=== PATIENT | female | born 1990 | race Caucasian/White ===

== ENCOUNTER 2022-11-06 03:35 | Emergency (ER) | payer OTHER, SELFPAY ==
[2022-11-06 03:59] VITALS: BP 151/86; PULSE 68; RESP 18; TEMP 36.6; O2SAT 100; BMI 26.6
--- NOTE | 2022-11-06 04:03 | ED.GENADULT ---
HPI - General Adult General Chief complaint: Urogenital-Female Stated complaint: Oral thrush Time Seen by Provider: 11/06/22 03:54 Source: patient Mode of arrival: ambulatory Limitations: no limitations History of Present Illness HPI narrative: Patient comes to the emergency room complaining of thrush in her mouth. Patient states that approximately 2 months ago, she had a vaginal infection, she was treated with antibiotics and since then she has been having multiple episodes of thrush in the mouth. Patient states that she recently finished treatment with nystatin swish and swallow, it helped but now it is restarting ends in the tip of the tongue. Related Data Previous Rx's Medication Instructions Recorded fluconazole 100 mg tablet 100 mg PO DAILY #5 tabs 11/06/22 (Diflucan) Allergies Allergy/AdvReac Type Severity Reaction Status Date / Time No Known Allergies Allergy Unverified 02/29/20 16:02 [No Known Allergies*] Review of Systems Review of Systems: Constitutional : No Weight loss, No Fever, No Chills, No Night Sweats, No Fatigue, No Malaise ENT/Mouth : Complaining of torsion the tongue, No Hearing loss, No Ear Pain, No Nasal Congestion, No Sinus Pain, No Hoarseness, No sore throat, No Rhinorrhea, No Swallowing Difficulty Eyes: No Eye Pain, No Swelling, No Redness, No Foreign Body, No Discharge, No Vision Changes Cardiovascular : No Chest Pain, No SOB, No Dyspnea on Exertion, No Orthopnea, No Edema, No Palpitations Respiratory : No Cough, No Sputum, No Wheezing, No Smoke Exposure, No Dyspnea Gastrointestinal : No Nausea, No Vomiting, No Diarrhea, No Constipation, No abdominal Pain, No Hematochezia, No Melena Genitourinary : no irregular bleeding, No Dysuria, No Urinary Frequency, No Hematuria, No Urinary Incontinence, No Urgency, No Flank Pain, No Urinary Flow Changes, No Hesitancy Musculoskeletal : No joint pain, No Myalgias, No Joint Swelling Skin : No Skin Lesions, No rash Neuro : No Weakness, No Numbness, No Paresthesias, No Loss of Consciousness, No Dizziness, No Headache Psych : No Anxiety/Panic, No Depression, No SI/HI/AH/VH, No Social Issues, Heme/Lymph: No Bruising, No Bleeding,No Lymphadenopathy Endocrine : No Polyuria, No Polydipsia, No Temperature Intolerance PMFSH Social History Social History Alcohol intake: never Physical Exam ED Vital Signs: Vital Signs - 24 hr 11/06/22 03:59 Temperature 97.8 F Pulse Rate 68 Respiratory Rate 18 Blood Pressure 151/86 H Pulse Oximetry 100 Oxygen Delivery Method Room Air BMI result Body Mass Index 26.6 Const Other: Appearance: Alert. Oriented X3. No acute distress. Eyes: Pupils equal, round and reactive to light. ENT: Pharynx normal. At the tip of the tongue there is a 3 mm x 3 mm plaque thrush, the rest of the oral mucosa within normal limits Neck: Normal inspection. Neck supple. No lymph nodes noted. No crepitus CVS: Normal heart rate and rhythm. Pulses normal. Normal S1 and S2 Respiratory: No respiratory distress. Breath sounds normal. No Wheezing. No rales Abdomen: Soft and nontender. No rigidity. No distention. Skin: Skin warm and dry. Normal skin color. Normal skin turgor. Extremities: No lower extremity edema. No Lacerations. No Rash Neuro: Oriented X 3. No motor deficit. No sensory deficit. Moving all extremities. No slurred speech. CN 2 through 12 grossly intact Psych: calm, cooperative, normal affect Medical Decision Making Medical Decision Making MDM Narrative: -patient is using surgeon's well at the moment. Patient was given 1 dose of Diflucan in the emergency room Discharge Plan Discharge Clinical Impression: Candidiasis of mouth Patient Disposition: Home, Self-Care Instructions: Oral Candidiasis (ED) Additional Instructions: Please follow-up with your primary care physician tomorrow. If you have any worsening or new symptoms, please return to the emergency room or call 911 Prescriptions: New fluconazole [Diflucan] 100 mg tablet 100 mg PO DAILY Qty: 5 0RF
[2022-11-06] MEDS: Fluconazole 150 MG TABLET PO (04:15)
== END 2022-11-06 04:15 | disposition home or self-care (01) ==
LOC: HO.ED 04:10
PROVIDERS: Emergency Provider Emergency Medicine
DX: B37.0 Candidal stomatitis (principal)
CPT/HCPCS: 99283; 99284

== ENCOUNTER 2022-12-20 07:57 | Observation (INO) | payer OTHER, SELFPAY ==
[2022-12-20] VITALS (7 sets, daily range): BP systolic 127–186; BP diastolic 58–91; PULSE 89–113; RESP 14–21; TEMP 36.3–36.8; O2SAT 97–99; BMI 33.4
--- NOTE | 2022-12-20 09:27 | ED_ITS ---
HPI - General Adult General Chief complaint: General Medical Stated complaint: legs swollen Time Seen by Provider: 12/20/22 08:54 Source: patient and RN notes reviewed Mode of arrival: ambulatory Limitations: no limitations History of Present Illness HPI narrative: This is a [id number]-female, with a history of nephroliathiasis, presenting to the emergency department with complaints of lower leg swelling and 20lb weight gain in the last 3-4 days. Patient states that over the last month, she has had multiple ailments. Patient reports that 1 month ago she was treated for bacterial vaginosis. Patient reports that since then she has had multiple ailments including many oral ulcers. She states that she has had profound acid in mouth and every time she eats something now she all she tastes is metallic and a burning/bubbling sensation throughout the whole mouth. She states that she has to get 3 root canals as her teeth are decaying because of the amount of acid. Patient states that over the last 3-4 days she has had peripheral edema. She also notes that she has had a rash appearing diffusely throughout her body. They are not itchy or tender. Denies history of IV drug abuse, alcohol use. No history similar symptoms in the past. No other complaints or concerns at this time. MD complaint: LE edema Onset (ago): day(s) Location: lower extremity Radiation: non-radiation Pain Consistency: constant Relieving factors: none Exacerbating factors: none Associated symptoms: denies other symptoms Treatments prior to arrival: none Related Data Home Medications Medication Instructions Recorded Confirmed ferrous sulfate 325 mg (65 mg 325 mg PO DAILY 12/20/22 12/20/22 iron) tablet (iron) valacyclovir 1 gram tablet 1,000 mg PO DAILY 12/20/22 12/20/22 vitamin B complex 1 tab PO DAILY 12/20/22 12/20/22 Previous Rx's Medication Instructions Recorded furosemide 20 mg tablet (Lasix) 20 mg PO QAM #7 tabs 12/21/22 Allergies Allergy/AdvReac Type Severity Reaction Status Date / Time No Known Allergies Allergy Unverified 02/29/20 16:02 [No Known Allergies*] Review of Systems Review of Systems: Constitutional: No Weight loss, No Fever, No Chills, No Night Sweats, No Fatigue, No Malaise ENT/Mouth: No Hearing loss, No Ear Pain, No Nasal Congestion, No Sinus Pain, No Hoarseness, No sore throat, No Rhinorrhea, No Swallowing Difficulty Eyes: No Eye Pain, No Swelling, No Redness, No Foreign Body, No Discharge, No Vision Changes Cardiovascular: No Chest Pain, No SOB, No Dyspnea on Exertion, No Orthopnea, No Edema, No Palpitations Respiratory: No Cough, No Sputum, No Wheezing, No Smoke Exposure, No Dyspnea Gastrointestinal: No Nausea, No Vomiting, No Diarrhea, No Constipation, No Abdominal pain, No Hematochezia, No Melena Genitourinary: No irregular bleeding, No Dysuria, No Urinary Frequency, No Hematuria, No Urinary Incontinence/retention, No Urgency, No Flank Pain, No Urinary Flow Changes, No Hesitancy Musculoskeletal: No joint pain, No Myalgias, No Joint Swelling Skin: No Skin Lesions, No rash Neuro: No Weakness, No Numbness, No Paresthesias, No Loss of Consciousness, No Dizziness, No Headache Psych: No Anxiety/Panic, No Depression, No SI/HI/AH/VH, No Social Issues, Heme/Lymph: No Bruising, No Bleeding,No Lymphadenopathy Endocrine: No Polyuria, No Polydipsia, No Temperature Intolerance Yes all other systems are reviewed and are negative Constitutional: Constitutional: Reports as per [facility] Social History Social History Alcohol intake: never Patient Tobacco Use Status: Never used Tobacco service: No Physical Exam ED Vital Signs: Vital Signs - 24 hr 12/20/22 08:08 12/20/22 10:55 12/20/22 12:52 Temperature 97.6 F Pulse Rate 89 94 105 H Respiratory Rate 18 19 21 H Blood Pressure 186/87 H 128/68 127/76 Pulse Oximetry 98 99 99 Oxygen Delivery Method Room Air Room Air Room Air 12/20/22 16:30 Temperature Pulse Rate 98 Respiratory Rate 17 Blood Pressure 134/88 Pulse Oximetry 99 Oxygen Delivery Method Room Air BMI result Body Mass Index 33.4 Const General: cooperative, comfortable and no acute distress Orientation/consciousness: patient oriented x3 Limitations: no limitations HENMT Head: Yes normal to inspection, Yes normocephalic and Yes atraumatic Ears: hearing grossly normal bilaterally General nose exam: Normal external nose present Face and sinus: Yes normal facial exam Mouth: Normal oral and palatal mucosa present, oropharynx normal and moist mucous membranes Throat: Yes posterior oropharynx normal Eyes General: appearance normal, both eyes and all related structures Eyelids: Yes eyelids normal Conjunctivae: conjunctivae normal Sclerae: sclerae normal Pupils: Equal, round and reactive pupils present EOM: EOMs intact bilaterally Neck Neck: Yes normal visual inspection, Yes full ROM and Yes no lymphadenopathy Lymphatic: no lymphadenopathy noted Chest Chest palpation & inspection: normal inspection of the chest Resp Effort & Inspection: normal respiratory effort and able to speak in complete sentences Auscultation: clear to auscultation bilaterally, no crackles, no rales, no rhonchi and no wheezes Cardio Rate: regular rate Rhythm: regular rhythm Heart sounds: S1 normal heart sound present and S2 normal heart sound present GI Other: Good rectal tone, dark stool noted from rectum, stool occult positive Inspection: Yes normal to inspection Palpation (GI): Soft to palpation, nontender and no guarding Percussion: Yes normal to percussion Auscultation: normal bowel sounds Rectal Exam - Female: visual inspection normal and normal sphincter tone Skin Other: Scattered, black punctate, raised lesions noted diffusely throughout chest and legs. Nontender. General skin exam: no rashes or lesions noted Trauma: no lacerations or abrasions Wounds: no wounds Neuro General: patient oriented x3 and moves all extremities Cranial nerves: Yes Equal, round and reactive pupils present Extrem Other: 3+ pitting edema noted bilaterally. General: Yes normal to inspection Right upper extremity: normal to inspection Left upper extremity: normal to inspection Right lower extremity: normal to inspection Left lower extremity: normal to inspection Course Reevaluation(s) Reevaluation #1: Patient had bowel movement that was very dark in color, almost black, rectal exam was performed, patient has good rectal tone, black stool noted on finger. Stool occult is positive. Given workup as well as microcytic anemia seen, p atient is case discussed with hospitalist who accepts transfer of care. Medications Administered Discontinued Medications Generic Name Dose Route Start Last Admin Trade Name Freq PRN Reason Stop Dose Admin Lorazepam 1 mg 12/20/22 11:08 12/20/22 11:15 Lorazepam 1 Mg Tablet PO 12/20/22 11:09 1 mg ONCE ONE Administration Sodium Chloride 3 ml 12/21/22 00:00 12/21/22 16:01 0.9 % Sodium Chloride Flush 3 Ml Syringe IVFLUSH 3 ml [facility] Administration Medical Decision Making Medical Decision Making [facility] Narrative: This is a 32-year-old previously healthy female presenting to the emergency department for evaluation of lower extremity swelling and 20 lb weight gain in the last 3-4 days. Patient reports that over the course of this past month, patient has had multiple ailments and she is unsure if they are connected. She initially had a bacterial vaginosis infection which was treated, then she had an infection in her mouth, reporting that there is approximately 20 ulcers along her tongue, very painful and was told that it was thrush. She was seen by infectious disease, reported that this was not thrush and was tested for HIV which was negative. Patient was then seen by ENT and was told that this was not thrush but her symptoms resolved on its own. Patient reports that she also has had a metallic taste in her mouth and at times food and beverages is all in her mouth. She reports increased acid in her mouth and reports dental decay, is needing multiple canal is which is very atypical for her. This case is very complex and it is unclear whether not these are all the intermingled. Vital signs revealing hypertension at 186/87 upon arrival, improved to 134/88. Patient has 3+ pitting edema, BNP was within limits, patient with microcytic anemia with an H&H of 8/30. Given dark stool and he positive stool and anemia, patient warrants hospital admission for further workup of bilateral lower extremity edema, anemia, and GI bleed. Patient has not had any chest pain, shortness of breath, or palpitations. Vital signs are stable on examination. Case was discussed with my attending physician, Dr. Deras and Dr. Ramirez. Differential Diagnosis Differential Diagnoses: The differential diagnosis associated with the presentation includes CHF, nephrotic syndrome, GI bleed, DVT, dependent edema, tick-borne illness, hyperthyroidism, anemia, iron deficiency anemia Admission/Observation Consideration of admission/observation: Escalation of care including admission/observation considered Patient would have been admitted to the hospital had her work up had any findings where hospital admission was appropriate and her clinical presentation warranted hospital admission. Consult Healthcare Provider Management of the patient was discussed with: Hospitalist Lab Data [facility] Lab Attestation statement: I reviewed the patient's lab results. Patient with microcytic anemia with a hemoglobin of 8.9, hematocrit at 30.5. Creatinine within normal limits, BUN normal, no leukocytosis, urine with large blood, trace leuk esterases. Stool occult blood is positive. 12/20/22 11:24 12/20/22 11:23 Labs: Lab Results 12/20/22 12/20/22 12/20/22 Range/Units 08:47 08:48 11:23 WBC (4.8-10.8) X10*3/uL RBC (4.20-5.50) X10*6/uL Hgb (12.0-16.0) g/dl Hct (37.0-47.0) % MCV (80.0-98.0) fL MCH (27.0-33.0) pg MCHC (31.0-35.0) g/dl RDW (11.0-16.0) % Plt Count (160-400) X10*3/uL MPV (9.4-12.3) fL Immature Gran % (Auto) (0.0-0.4) % Neut % (Auto) (45-73) % Lymph % (Auto) (20-40) % Mcduffie % (Auto) (2-11) % Eos % (Auto) (0-4) % Baso % (Auto) (0-2) % Lymph # (Auto) (1.2-4.9) X10*3/uL [place]duffie # (Auto) (0.1-1.2) X10*3/uL Eos # (Auto) (0.0-0.4) X10*3/uL Baso # (Auto) (0.0-0.2) X10*3/uL Abs Immat Gran (auto) (0.00-0.03) X10*3/uL Absolute Neuts (auto) (2.0-8.3) x10*3/uL Absolute Nucleated RBC (0.0-0.012) X10*3/uL Nucleated RBC % (auto) (0.0-0.2) /100WBC ESR (0-20) MM/HR Sodium 138 (135-145) mmol/L Potassium 4.0 (3.3-5.1) mmol/L Chloride 102 (96-108) mmol/L Carbon Dioxide 26 (22-29) mmol/L Anion Gap 14 (12-20) BUN 10 (9-16) mg/dL Creatinine 0.69 (0.5-1.4) mg/dL Estim Creat Clear Calc 135.2 Estimated GFR > 60 Random Glucose 93 (60-115) mg/dL Calcium 9.7 (8.4-10.2) mg/dL Magnesium (1.6-2.6) mg/dL Iron (30-160) mcg/dL TIBC (228-428) mcg/dL % Saturation (15-50) % Unsat Iron Binding ug/dL Ferritin (10-122) ng/mL Total Bilirubin (0.0-1.0) mg/dL Direct Bilirubin (0.0-0.5) mg/dL AST (5-31) U/L ALT (0-31) U/L Alkaline Phosphatase (39-117) U/L Troponin I High Sens (<3.5-17.0) ng/L C-Reactive Protein (< or = 0.50) mg/dL B-Natriuretic Peptide (<100) pg/mL Total Protein (6.5-8.0) g/dL Albumin (3.5-5.0) g/dL Lipase (8-78) U/L Vitamin B12 (200-900) pg/mL Folate (> or = 4.0) ng/mL TSH (0.32-4.0) uIU/mL Urine Color Dark Yellow Urine Appearance Cloudy Urine pH 5.5 (5.0-9.0) Ur Specific Jackson 1.025 (1.005-1.025) Urine Protein Trace (Neg-Trace) mg/dL Urine Glucose (UA) Negative (Negative) mg/dL Urine Ketones Trace (Negative) mg/dL Urine Blood Large (3+) H (Negative) Urine Nitrite Negative (Negative) Ur Leukocyte Esterase Trace H (Negative) Urine RBC >20 H (0-2) /HPF Urine WBC 0-5 (0-5) /HPF Ur Squamous Epith Cells 6-10 (0-2) /HPF Calcium Oxalate Crystal Present Urine Bacteria None Seen (None Seen) Hyaline Casts 0-2 (0-2) /LPF Urine Test NEGATIVE (NEGATIVE) Stool Occult Blood (NEGATIVE) Ethyl Alcohol mg/dL Lyme Screen IgG & IgM index Lyme Progressive Test COVID-19 (MAX) (Negative) COVID-19 Clin Com Hepatitis A IgM Ab (Nonreactive) Hep Bs Antigen (Negative) Hep Bs Antibody (Nonreactive) Hep B Core Total Ab (Nonreactive) Hepatitis C Ab (EIA) (Nonreactive) Anti-Streptolysin Scrn (<200) IU/mL 12/20/22 12/20/22 12/20/22 Range/Units 11:23 11:23 11:23 WBC (4.8-10.8) X10*3/uL RBC (4.20-5.50) X10*6/uL Hgb (12.0-16.0) g/dl Hct (37.0-47.0) % MCV (80.0-98.0) fL MCH (27.0-33.0) pg MCHC (31.0-35.0) g/dl RDW (11.0-16.0) % Plt Count (160-400) X10*3/uL MPV (9.4-12.3) fL Immature Gran % (Auto) (0.0-0.4) % Neut % (Auto) (45-73) % Lymph % (Auto) (20-40) % [place]duffie % (Auto) (2-11) % Eos % (Auto) (0-4) % Baso % (Auto) (0-2) % Lymph # (Auto) (1.2-4.9) X10*3/uL [place]duffie # (Auto) (0.1-1.2) X10*3/uL Eos # (Auto) (0.0-0.4) X10*3/uL Baso # (Auto) (0.0-0.2) X10*3/uL Abs Immat Gran (auto) (0.00-0.03) X10*3/uL Absolute Neuts (auto) (2.0-8.3) x10*3/uL Absolute Nucleated RBC (0.0-0.012) X10*3/uL Nucleated RBC % (auto) (0.0-0.2) /100WBC ESR (0-20) MM/HR Sodium (135-145) mmol/L Potassium (3.3-5.1) mmol/L Chloride (96-108) mmol/L Carbon Dioxide (22-29) mmol/L Anion Gap (12-20) BUN (9-16) mg/dL Creatinine (0.5-1.4) mg/dL Estim Creat Clear Calc Estimated GFR Random Glucose (60-115) mg/dL Calcium (8.4-10.2) mg/dL Magnesium 2.1 (1.6-2.6) mg/dL Iron 16 L (30-160) mcg/dL TIBC 358 (228-428) mcg/dL % Saturation 4 L (15-50) % Unsat Iron Binding 342 ug/dL Ferritin 13 (10-122) ng/mL Total Bilirubin 0.3 (0.0-1.0) mg/dL Direct Bilirubin 0.1 (0.0-0.5) mg/dL AST 21 (5-31) U/L ALT 12 (0-31) U/L Alkaline Phosphatase 70 (39-117) U/L Troponin I High Sens < 2.7 (<3.5-17.0) ng/L C-Reactive Protein (< or = 0.50) mg/dL B-Natriuretic Peptide (<100) pg/mL Total Protein 7.6 (6.5-8.0) g/dL Albumin 4.0 (3.5-5.0) g/dL Lipase 13 (8-78) U/L Vitamin B12 (200-900) pg/mL Folate (> or = 4.0) ng/mL TSH (0.32-4.0) uIU/mL Urine Color Urine Appearance Urine pH (5.0-9.0) Ur Specific Jackson (1.005-1.025) Urine Protein (Neg-Trace) mg/dL Urine Glucose (UA) (Negative) mg/dL Urine Ketones (Negative) mg/dL Urine Blood (Negative) Urine Nitrite (Negative) Ur Leukocyte Esterase (Negative) Urine RBC (0-2) /HPF Urine WBC (0-5) /HPF Ur Squamous Epith Cells (0-2) /HPF Calcium Oxalate Crystal Urine Bacteria (None Seen) Hyaline Casts (0-2) /LPF Urine Test (NEGATIVE) Stool Occult Blood (NEGATIVE) Ethyl Alcohol mg/dL Lyme Screen IgG & IgM index Lyme Progressive Test COVID-19 (MAX) (Negative) COVID-19 Clin Com Hepatitis A IgM Ab (Nonreactive) Hep Bs Antigen (Negative) Hep Bs Antibody (Nonreactive) Hep B Core Total Ab (Nonreactive) Hepatitis C Ab (EIA) (Nonreactive) Anti-Streptolysin Scrn 227 H (<200) IU/mL 12/20/22 12/20/22 12/20/22 Range/Units 11:23 11:23 11:23 WBC (4.8-10.8) X10*3/uL RBC (4.20-5.50) X10*6/uL Hgb (12.0-16.0) g/dl Hct (37.0-47.0) % MCV (80.0-98.0) fL MCH (27.0-33.0) pg MCHC (31.0-35.0) g/dl RDW (11.0-16.0) % Plt Count (160-400) X10*3/uL MPV (9.4-12.3) fL Immature Gran % (Auto) (0.0-0.4) % Neut % (Auto) (45-73) % Lymph % (Auto) (20-40) % [place]duffie % (Auto) (2-11) % Eos % (Auto) (0-4) % Baso % (Auto) (0-2) % Lymph # (Auto) (1.2-4.9) X10*3/uL [place]ff[place] # (Auto) (0.1-1.2) X10*3/uL Eos # (Auto) (0.0-0.4) X10*3/uL Baso # (Auto) (0.0-0.2) X10*3/uL Abs Immat Gran (auto) (0.00-0.03) X10*3/uL Absolute Neuts (auto) (2.0-8.3) x10*3/uL Absolute Nucleated RBC (0.0-0.012) X10*3/uL Nucleated RBC % (auto) (0.0-0.2) /100WBC ESR (0-20) MM/HR Sodium (135-145) mmol/L Potassium (3.3-5.1) mmol/L Chloride (96-108) mmol/L Carbon Dioxide (22-29) mmol/L Anion Gap (12-20) BUN (9-16) mg/dL Creatinine (0.5-1.4) mg/dL Estim Creat Clear Calc Estimated GFR Random Glucose (60-115) mg/dL Calcium (8.4-10.2) mg/dL Magnesium (1.6-2.6) mg/dL Iron (30-160) mcg/dL TIBC (228-428) mcg/dL % Saturation (15-50) % Unsat Iron Binding ug/dL Ferritin (10-122) ng/mL Total Bilirubin (0.0-1.0) mg/dL Direct Bilirubin (0.0-0.5) mg/dL AST (5-31) U/L ALT (0-31) U/L Alkaline Phosphatase (39-117) U/L Troponin I High Sens (<3.5-17.0) ng/L C-Reactive Protein 0.91 H (< or = 0.50) mg/dL B-Natriuretic Peptide 33 (<100) pg/mL Total Protein (6.5-8.0) g/dL Albumin (3.5-5.0) g/dL Lipase (8-78) U/L Vitamin B12 (200-900) pg/mL Folate (> or = 4.0) ng/mL TSH (0.32-4.0) uIU/mL Urine Color Urine Appearance Urine pH (5.0-9.0) Ur Specific Jackson (1.005-1.025) Urine Protein (Neg-Trace) mg/dL Urine Glucose (UA) (Negative) mg/dL Urine Ketones (Negative) mg/dL Urine Blood (Negative) Urine Nitrite (Negative) Ur Leukocyte Esterase (Negative) Urine RBC (0-2) /HPF Urine WBC (0-5) /HPF Ur Squamous Epith Cells (0-2) /HPF Calcium Oxalate Crystal Urine Bacteria (None Seen) Hyaline Casts (0-2) /LPF Urine Test (NEGATIVE) Stool Occult Blood (NEGATIVE) Ethyl Alcohol < 10 mg/dL Lyme Screen IgG & IgM <0.90 index Lyme Progressive Test TNP COVID-19 (MAX) (Negative) COVID-19 Clin Com Hepatitis A IgM Ab (Nonreactive) Hep Bs Antigen (Negative) Hep Bs Antibody (Nonreactive) Hep B Core Total Ab (Nonreactive) Hepatitis C Ab (EIA) (Nonreactive) Anti-Streptolysin Scrn (<200) IU/mL 12/20/22 12/20/22 12/20/22 Range/Units 11:23 11:24 11:24 WBC 10.2 (4.8-10.8) X10*3/uL RBC 4.28 (4.20-5.50) X10*6/uL Hgb 8.9 L (12.0-16.0) g/dl Hct 30.5 L (37.0-47.0) % MCV 71.3 L (80.0-98.0) fL MCH 20.8 L (27.0-33.0) pg MCHC 29.2 L (31.0-35.0) g/dl RDW 19.8 H (11.0-16.0) % Plt Count 418 H (160-400) X10*3/uL MPV 9.2 L (9.4-12.3) fL Immature Gran % (Auto) 0.3 (0.0-0.4) % Neut % (Auto) 77.0 H (45-73) % Lymph % (Auto) 15.5 L (20-40) % [place]duffie % (Auto) 4.9 (2-11) % Eos % (Auto) 2.0 (0-4) % Baso % (Auto) 0.3 (0-2) % Lymph # (Auto) 1.6 (1.2-4.9) X10*3/uL [place]duffie # (Auto) 0.5 (0.1-1.2) X10*3/uL Eos # (Auto) 0.2 (0.0-0.4) X10*3/uL Baso # (Auto) 0.0 (0.0-0.2) X10*3/uL Abs Immat Gran (auto) 0.03 (0.00-0.03) X10*3/uL Absolute Neuts (auto) 7.9 (2.0-8.3) x10*3/uL Absolute Nucleated RBC 0.000 (0.0-0.012) X10*3/uL Nucleated RBC % (auto) 0.0 (0.0-0.2) /100WBC ESR (0-20) MM/HR Sodium (135-145) mmol/L Potassium (3.3-5.1) mmol/L Chloride (96-108) mmol/L Carbon Dioxide (22-29) mmol/L Anion Gap (12-20) BUN (9-16) mg/dL Creatinine (0.5-1.4) mg/dL Estim Creat Clear Calc Estimated GFR Random Glucose (60-115) mg/dL Calcium (8.4-10.2) mg/dL Magnesium (1.6-2.6) mg/dL Iron (30-160) mcg/dL TIBC (228-428) mcg/dL % Saturation (15-50) % Unsat Iron Binding ug/dL Ferritin (10-122) ng/mL Total Bilirubin (0.0-1.0) mg/dL Direct Bilirubin (0.0-0.5) mg/dL AST (5-31) U/L ALT (0-31) U/L Alkaline Phosphatase (39-117) U/L Troponin I High Sens (<3.5-17.0) ng/L C-Reactive Protein (< or = 0.50) mg/dL B-Natriuretic Peptide (<100) pg/mL Total Protein (6.5-8.0) g/dL Albumin (3.5-5.0) g/dL Lipase (8-78) U/L Vitamin B12 (200-900) pg/mL Folate (> or = 4.0) ng/mL TSH (0.32-4.0) uIU/mL Urine Color Urine Appearance Urine pH (5.0-9.0) Ur Specific Jackson (1.005-1.025) Urine Protein (Neg-Trace) mg/dL Urine Glucose (UA) (Negative) mg/dL Urine Ketones (Negative) mg/dL Urine Blood (Negative) Urine Nitrite (Negative) Ur Leukocyte Esterase (Negative) Urine RBC (0-2) /HPF Urine WBC (0-5) /HPF Ur Squamous Epith Cells (0-2) /HPF Calcium Oxalate Crystal Urine Bacteria (None Seen) Hyaline Casts (0-2) /LPF Urine Test (NEGATIVE) Stool Occult Blood (NEGATIVE) Ethyl Alcohol mg/dL Lyme Screen IgG & IgM index Lyme Progressive Test COVID-19 (MAX) Negative (Negative) COVID-19 Clin Com See Note Hepatitis A IgM Ab Nonreactive (Nonreactive) Hep Bs Antigen Negative (Negative) Hep Bs Antibody REACTIVE (Nonreactive) Hep B Core Total Ab Nonreactive (Nonreactive) Hepatitis C Ab (EIA) Nonreactive (Nonreactive) Anti-Streptolysin Scrn (<200) IU/mL 12/20/22 12/20/2212/20/23 Range/Units 11:24 11:25 14:43 WBC (4.8-10.8) X10*3/uL RBC (4.20-5.50) X10*6/uL Hgb (12.0-16.0) g/dl Hct (37.0-47.0) % MCV (80.0-98.0) fL MCH (27.0-33.0) pg MCHC (31.0-35.0) g/dl RDW (11.0-16.0) % Plt Count (160-400) X10*3/uL MPV (9.4-12.3) fL Immature Gran % (Auto) (0.0-0.4) % Neut % (Auto) (45-73) % Lymph % (Auto) (20-40) % [place]duffie % (Auto) (2-11) % Eos % (Auto) (0-4) % Baso % (Auto) (0-2) % Lymph # (Auto) (1.2-4.9) X10*3/uL [place]ff[place] # (Auto) (0.1-1.2) X10*3/uL Eos # (Auto) (0.0-0.4) X10*3/uL Baso # (Auto) (0.0-0.2) X10*3/uL Abs Immat Gran (auto) (0.00-0.03) X10*3/uL Absolute Neuts (auto) (2.0-8.3) x10*3/uL Absolute Nucleated RBC (0.0-0.012) X10*3/uL Nucleated RBC % (auto) (0.0-0.2) /100WBC ESR 37 H (0-20) MM/HR Sodium (135-145) mmol/L Potassium (3.3-5.1) mmol/L Chloride (96-108) mmol/L Carbon Dioxide (22-29) mmol/L Anion Gap (12-20) BUN (9-16) mg/dL Creatinine (0.5-1.4) mg/dL Estim Creat Clear Calc Estimated GFR Random Glucose (60-115) mg/dL Calcium (8.4-10.2) mg/dL Magnesium (1.6-2.6) mg/dL Iron (30-160) mcg/dL TIBC (228-428) mcg/dL % Saturation (15-50) % Unsat Iron Binding ug/dL Ferritin (10-122) ng/mL Total Bilirubin (0.0-1.0) mg/dL Direct Bilirubin (0.0-0.5) mg/dL AST (5-31) U/L ALT (0-31) U/L Alkaline Phosphatase (39-117) U/L Troponin I High Sens (<3.5-17.0) ng/L C-Reactive Protein (< or = 0.50) mg/dL B-Natriuretic Peptide (<100) pg/mL Total Protein (6.5-8.0) g/dL Albumin (3.5-5.0) g/dL Lipase (8-78) U/L Vitamin B12 (200-900) pg/mL Folate (> or = 4.0) ng/mL TSH 0.86 (0.32-4.0) uIU/mL Urine Color Urine Appearance Urine pH (5.0-9.0) Ur Specific Jackson (1.005-1.025) Urine Protein (Neg-Trace) mg/dL Urine Glucose (UA) (Negative) mg/dL Urine Ketones (Negative) mg/dL Urine Blood (Negative) Urine Nitrite (Negative) Ur Leukocyte Esterase (Negative) Urine RBC (0-2) /HPF Urine WBC (0-5) /HPF Ur Squamous Epith Cells (0-2) /HPF Calcium Oxalate Crystal Urine Bacteria (None Seen) Hyaline Casts (0-2) /LPF Urine Test (NEGATIVE) Stool Occult Blood POSITIVE (NEGATIVE) Ethyl Alcohol mg/dL Lyme Screen IgG & IgM index Lyme Progressive Test COVID-19 (MAX) (Negative) COVID-19 Clin Com Hepatitis A IgM Ab (Nonreactive) Hep Bs Antigen (Negative) Hep Bs Antibody (Nonreactive) Hep B Core Total Ab (Nonreactive) Hepatitis C Ab (EIA) (Nonreactive) Anti-Streptolysin Scrn (<200) IU/mL 12/20/22 Range/Units 16:48 WBC (4.8-10.8) X10*3/uL RBC (4.20-5.50) X10*6/uL Hgb (12.0-16.0) g/dl Hct (37.0-47.0) % MCV (80.0-98.0) fL MCH (27.0-33.0) pg MCHC (31.0-35.0) g/dl RDW (11.0-16.0) % Plt Count (160-400) X10*3/uL MPV (9.4-12.3) fL Immature Gran % (Auto) (0.0-0.4) % Neut % (Auto) (45-73) % Lymph % (Auto) (20-40) % [place]duff[place] % (Auto) (2-11) % Eos % (Auto) (0-4) % Baso % (Auto) (0-2) % Lymph # (Auto) (1.2-4.9) X10*3/uL [place]ff[place] # (Auto) (0.1-1.2) X10*3/uL Eos # (Auto) (0.0-0.4) X10*3/uL Baso # (Auto) (0.0-0.2) X10*3/uL Abs Immat Gran (auto) (0.00-0.03) X10*3/uL Absolute Neuts (auto) (2.0-8.3) x10*3/uL Absolute Nucleated RBC (0.0-0.012) X10*3/uL Nucleated RBC % (auto) (0.0-0.2) /100WBC ESR (0-20) MM/HR Sodium (135-145) mmol/L Potassium (3.3-5.1) mmol/L Chloride (96-108) mmol/L Carbon Dioxide (22-29) mmol/L Anion Gap (12-20) BUN (9-16) mg/dL Creatinine (0.5-1.4) mg/dL Estim Creat Clear Calc Estimated GFR Random Glucose (60-115) mg/dL Calcium (8.4-10.2) mg/dL Magnesium (1.6-2.6) mg/dL Iron (30-160) mcg/dL TIBC (228-428) mcg/dL % Saturation (15-50) % Unsat Iron Binding ug/dL Ferritin (10-122) ng/mL Total Bilirubin (0.0-1.0) mg/dL Direct Bilirubin (0.0-0.5) mg/dL AST (5-31) U/L ALT (0-31) U/L Alkaline Phosphatase (39-117) U/L Troponin I High Sens (<3.5-17.0) ng/L C-Reactive Protein (< or = 0.50) mg/dL B-Natriuretic Peptide (<100) pg/mL Total Protein (6.5-8.0) g/dL Albumin (3.5-5.0) g/dL Lipase (8-78) U/L Vitamin B12 651 (200-900) pg/mL Folate 10.1 (> or = 4.0) ng/mL TSH (0.32-4.0) uIU/mL Urine Color Urine Appearance Urine pH (5.0-9.0) Ur Specific Jackson (1.005-1.025) Urine Protein (Neg-Trace) mg/dL Urine Glucose (UA) (Negative) mg/dL Urine Ketones (Negative) mg/dL Urine Blood (Negative) Urine Nitrite (Negative) Ur Leukocyte Esterase (Negative) Urine RBC (0-2) /HPF Urine WBC (0-5) /HPF Ur Squamous Epith Cells (0-2) /HPF Calcium Oxalate Crystal Urine Bacteria (None Seen) Hyaline Casts (0-2) /LPF Urine Test (NEGATIVE) Stool Occult Blood (NEGATIVE) Ethyl Alcohol mg/dL Lyme Screen IgG & IgM index Lyme Progressive Test COVID-19 (MAX) (Negative) COVID-19 Clin Com Hepatitis A IgM Ab (Nonreactive) Hep Bs Antigen (Negative) Hep Bs Antibody (Nonreactive) Hep B Core Total Ab (Nonreactive) Hepatitis C Ab (EIA) (Nonreactive) Anti-Streptolysin Scrn (<200) IU/mL Radiology Impression Discussion of test interpretation with radiology: I have reviewed the radiologist's reading. Radiologist Impression: EXAMINATION: XR CHEST CLINICAL INFORMATION: Chest pain COMPARISON: None available. TECHNIQUE: Frontal view of the chest was obtained. FINDINGS: No significant abnormality is noted involving the heart, lungs, mediastinum, bony thorax or soft tissues. XR/XR chest 1V IMPRESSION: Unremarkable chest examination. ? Dictated By: Iftikhar Andersen MD EXAMINATION:? US VENOUS ULTRASOUND WITH DOPPLER LOWER EXTREMITY, BILATERAL CLINICAL INFORMATION:? Leg swelling. COMPARISON:? None available. TECHNIQUE: Ultrasound of the deep veins is performed from the hip to the calf with compression sonography and color and pulse Doppler assessment. Spectral analysis with color-flow imaging is performed. FINDINGS: RIGHT: There is normal venous compression and respiratory variation and augmented flow. The visualized common femoral vein, superficial femoral vein, profunda femoral vein, popliteal vein, and the trifurcation region shows no evidence of deep venous thrombosis. ? There is no significant popliteal fossa cyst.? LEFT: There is normal venous compression and respiratory variation and augmented flow. The visualized common femoral vein, superficial femoral vein, profunda femoral vein, popliteal vein, and the trifurcation region shows no evidence of deep venous thrombosis. ? There is no significant popliteal fossa cyst. If the patient's symptoms persist, followup ultrasound in 5 days 7 days might be of value to exclude proximal propagation from a non-visualized calf vein. US/US venous duplex LE BI IMPRESSION: No DVT demonstrated in the bilateral lower extremity. External Record Review External record reviewed: Inpatient record, Office record, Outpatient record, Prior outpatient labs, Prior outpatient radiology, Primary care record and Outside ED record Critical Care Time Critical Care Time Critical Care Time: Yes Total Critical Care Time: 60 Attestation: I have personally provided critical care time exclusive of time spent on separately billable procedures. Time includes review of lab data, radiology results, discussion with consultants, and monitoring for potential decompensati on. Intervention performed as documented. Discharge Plan Discharge Clinical Impression: Edema, GI (gastrointestinal bleed), Anemia Patient Disposition: Admitted As Inpatient Interventions: Admission Worksheet (ED) Last Done: 12/20/22 20:04 Discharge Date/Time: 12/20/22 20:10
[2022-12-20 11:30] LABS: MANUAL DIFF FLAG NO
[2022-12-20 11:32] LABS: Basophils Percent Auto 0.3 % (0-2); Eosinophils Absolute Auto 0.2 X10*3/uL (0.0-0.4); Hematocrit 30.5 % (37.0-47.0); Hemoglobin 8.9 g/dl (12.0-16.0); Imm Gran Abs Auto 0.03 X10*3/uL (0.00-0.03); Imm Gran Pct Auto 0.3 % (0.0-0.4); Lymphocytes Absolute Auto 1.6 X10*3/uL (1.2-4.9); Lymphocytes Percent Auto 15.5 % (20-40); Mean Corpuscular HGB Conc 29.2 g/dl (31.0-35.0); Mean Corpuscular Hemoglobin 20.8 pg (27.0-33.0); Mean Corpuscular Volume 71.3 fL (80.0-98.0); Mean Platelet Volume 9.2 fL (9.4-12.3); Monocytes Absolute Auto 0.5 X10*3/uL (0.1-1.2); Monocytes Percent Auto 4.9 % (2-11); Neutrophils Absolute Auto 7.9 x10*3/uL (2.0-8.3); Platelet Count 418 X10*3/uL (160-400); Red Blood Count 4.28 X10*6/uL (4.20-5.50); Red Cell Distribution Width 19.8 % (11.0-16.0); White Blood Count 10.2 X10*3/uL (4.8-10.8)
[2022-12-20 12:05] LABS: Anion Gap 14 (12-20); Blood Urea Nitrogen 10 mg/dL (9-16); Calcium 9.7 mg/dL (8.4-10.2); Carbon Dioxide 26 mmol/L (22-29); Chloride 102 mmol/L (96-108); Creatinine Clr Calc Pharmacy 135.2; Estimated Glomerular Filt Rate > 60; Glucose Random 93 mg/dL (60-115); Sodium 138 mmol/L (135-145)
--- NOTE | 2022-12-20 16:40 | PM.IMHP ---
History of Present Illness Date of Service: 12/20/22 Chief Complaint: Leg edema and weight gain 32 year old female with with no signficant PMH but over the last several months has been treated for yeast infection, thrush, . Over the last several days she has gained considerable amount of weight--20ib and has developped leg edema. No fever or chills, no HARDY, no sob, no travel. Work up shows microcytic anemia Hgb 9 no new lab since 2019, she had dardk stool in the ED, +occult blood, BMP normal, BNP normal, TSH normal, B12, Folate normal, no recent travel, US leg negative for DVT. Anaplasma work up negative, ALVERTO pending, Review of Systems Review of Systems: Gen: no fever Resp: no sob, no cough CV: no chest, no HARDY, + leg edema GI: No n/v, no abd pain Neuro: No confusion Yes all other systems are reviewed and are negative PMFSH Social History Alcohol intake: never Patient Tobacco Use Status: Never used Tobacco Smoked in Last 30 Days: No Use of substances other than those prescribed or required for medical reasons: No Advance Directives: No Advance Directives Information Provided: No Nutrition Risks: No Nutritional Risk Patient : No Meds Allergies Allergy/AdvReac Type Severity Reaction Status Date / Time No Known Allergies Allergy Unverified 02/29/20 16:02 [No Known Allergies*] Active Medications: Current Medications Pharmacy Consult (Consult Rx Perform Med Rec) 1 each MISCELLANE ONCE PRN PRN Reason: Consult order Home Medications Medication Instructions Recorded Confirmed Last Taken Type ferrous sulfate 325 mg (65 mg 325 mg PO DAILY 12/20/22 12/20/22 Unknown History iron) tablet (iron) valacyclovir 1 gram tablet 1,000 mg PO DAILY 12/20/22 12/20/22 Unknown History vitamin B complex 1 tab PO DAILY 12/20/22 12/20/22 Unknown History Physical Exam Vital Signs and Narrative: Vital Signs: Last Vital Signs Temp 97.6 F 12/20/22 08:08 Pulse 98 12/20/22 16:30 Resp 17 12/20/22 16:30 BP 134/88 12/20/22 16:30 Pulse Ox 99 12/20/22 16:30 O2 Del Method Room Air 12/20/22 16:30 BMI result Body Mass Index 33.4 Results Labs 12/20/22 11:24 12/20/22 11:23 Labs: Laboratory Results - last 24 hr 12/20/22 12/20/22 12/20/22 08:47 08:48 11:23 MCV MCH MCHC RDW Plt Count MPV Immature Gran % (Auto) Neut % (Auto) Lymph % (Auto) [place] % (Auto) Eos % (Auto) Baso % (Auto) Lymph # (Auto) [place] # (Auto) Eos # (Auto) Baso # (Auto) Abs Immat Gran (auto) Absolute Neuts (auto) Absolute Nucleated RBC Nucleated RBC % (auto) Anion Gap 14 Estim Creat Clear Calc 135.2 Estimated GFR > 60 Random Glucose 93 Calcium 9.7 Magnesium Total Bilirubin Direct Bilirubin AST ALT Alkaline Phosphatase Troponin I High Sens B-Natriuretic Peptide Total Protein Albumin Lipase TSH Urine Color Dark Yellow Urine Appearance Cloudy Urine pH 5.5 Ur Specific [place] 1.025 Urine Protein Trace Urine Glucose (UA) Negative Urine Ketones Trace Urine Blood Large (3+) H Urine Nitrite Negative Ur Leukocyte Esterase Trace H Urine RBC >20 H Urine WBC 0-5 Ur Squamous Epith Cells 6-10 Calcium Oxalate Crystal Present Urine Bacteria None Seen Hyaline Casts 0-2 Urine Test NEGATIVE Stool Occult Blood Ethyl Alcohol COVID-19 (MAX) COVID-19 Clin Com Hepatitis A IgM Ab Hep Bs Antigen Hep Bs Antibody Hep B Core Total Ab Hepatitis C Ab (EIA) 12/20/22 12/20/22 12/20/22 11:23 11:23 11:23 MCV MCH MCHC RDW Plt Count MPV Immature Gran % (Auto) Neut % (Auto) Lymph % (Auto) [place] % (Auto) Eos % (Auto) Baso % (Auto) Lymph # (Auto) [place] # (Auto) Eos # (Auto) Baso # (Auto) Abs Immat Gran (auto) Absolute Neuts (auto) Absolute Nucleated RBC Nucleated RBC % (auto) Anion Gap Estim Creat Clear Calc Estimated GFR Random Glucose Calcium Magnesium 2.1 Total Bilirubin 0.3 Direct Bilirubin 0.1 AST 21 ALT 12 Alkaline Phosphatase 70 Troponin I High Sens < 2.7 B-Natriuretic Peptide 33 Total Protein 7.6 Albumin 4.0 Lipase 13 TSH Urine Color Urine Appearance Urine pH Ur Specific [place] Urine Protein Urine Glucose (UA) Urine Ketones Urine Blood Urine Nitrite Ur Leukocyte Esterase Urine RBC Urine WBC Ur Squamous Epith Cells Calcium Oxalate Crystal Urine Bacteria Hyaline Casts Urine Test Stool Occult Blood Ethyl Alcohol COVID-19 (MAX) COVID-19 Clin Com Hepatitis A IgM Ab Hep Bs Antigen Hep Bs Antibody Hep B Core Total Ab Hepatitis C Ab (EIA) 12/20/22 12/20/22 12/20/22 11:23 11:23 11:24 MCV 71.3 L MCH 20.8 L MCHC 29.2 L RDW 19.8 H Plt Count 418 H MPV 9.2 L Immature Gran % (Auto) 0.3 Neut % (Auto) 77.0 H Lymph % (Auto) 15.5 L [place] % (Auto) 4.9 Eos % (Auto) 2.0 Baso % (Auto) 0.3 Lymph # (Auto) 1.6 [place] # (Auto) 0.5 Eos # (Auto) 0.2 Baso # (Auto) 0.0 Abs Immat Gran (auto) 0.03 Absolute Neuts (auto) 7.9 Absolute Nucleated RBC 0.000 Nucleated RBC % (auto) 0.0 Anion Gap Estim Creat Clear Calc Estimated GFR Random Glucose Calcium Magnesium Total Bilirubin Direct Bilirubin AST ALT Alkaline Phosphatase Troponin I High Sens B-Natriuretic Peptide Total Protein Albumin Lipase TSH Urine Color Urine Appearance Urine pH Ur Specific [place] Urine Protein Urine Glucose (UA) Urine Ketones Urine Blood Urine Nitrite Ur Leukocyte Esterase Urine RBC Urine WBC Ur Squamous Epith Cells Calcium Oxalate Crystal Urine Bacteria Hyaline Casts Urine Test Stool Occult Blood Ethyl Alcohol < 10 COVID-19 (MAX) COVID-19 Clin Com Hepatitis A IgM Ab Nonreactive Hep Bs Antigen Negative Hep Bs Antibody REACTIVE Hep B Core Total Ab Nonreactive Hepatitis C Ab (EIA) Nonreactive 12/20/22 12/20/22 12/20/22 11:24 11:25 14:43 MCV MCH MCHC RDW Plt Count MPV Immature Gran % (Auto) Neut % (Auto) Lymph % (Auto) [place] % (Auto) Eos % (Auto) Baso % (Auto) Lymph # (Auto) [place] # (Auto) Eos # (Auto) Baso # (Auto) Abs Immat Gran (auto) Absolute Neuts (auto) Absolute Nucleated RBC Nucleated RBC % (auto) Anion Gap Estim Creat Clear Calc Estimated GFR Random Glucose Calcium Magnesium Total Bilirubin Direct Bilirubin AST ALT Alkaline Phosphatase Troponin I High Sens B-Natriuretic Peptide Total Protein Albumin Lipase TSH 0.86 Urine Color Urine Appearance Urine pH Ur Specific [place] Urine Protein Urine Glucose (UA) Urine Ketones Urine Blood Urine Nitrite Ur Leukocyte Esterase Urine RBC Urine WBC Ur Squamous Epith Cells Calcium Oxalate Crystal Urine Bacteria Hyaline Casts Urine Test Stool Occult Blood POSITIVE Ethyl Alcohol COVID-19 (MAX) Negative COVID-19 Clin Com See Note Hepatitis A IgM Ab Hep Bs Antigen Hep Bs Antibody Hep B Core Total Ab Hepatitis C Ab (EIA) Imaging Radiologist's Impressions: Impressions Chest X-Ray 12/20/22 09:22 IMPRESSION: Unremarkable chest examination. Venous Duplex 12/20/22 10:49 IMPRESSION: No DVT demonstrated in the bilateral lower extremity. Assessment and Plan (1) Edema: Status: Acute (2) GI (gastrointestinal bleed): Status: Acute (3) Anemia: Status: Acute Plan 32 year old female with anemia, +occult blood, leg edamea Leg edema, nl BNP--echo to rule out cardiomyopathy, hold of diuretics for now, echo tomorrow Microcytic anemia, melana, positive occult--check iron studies, repeat h/h if trending down, gi eval I suspect anemia likely related to menses, positive occult blood could be related to iron Thursh--not resolving, consider biopsy, check HIV low risk for dvt, ambulate obs pt Time Spent With Patient Time: Total time managing care of this patient today ____ minutes. Quality Stroke Does the patient have a stroke diagnosis?: No VTE Prior VTE?: No VTE Risk Level:: Medical - moderate - high VTE Device Contraindication: Treatment Not Indicated VTE Drug Contraindication: N/A - Med Ordered
--- NOTE | 2022-12-20 16:46 | PHA.MEDREC ---
Pharmacy Consult ? Medication Reconciliation Pharmacy has completed the medication reconciliation. spoke with patient. Confirmed all of her medications.
[2022-12-20 18:08] LABS: Erythrocyte Sedimentation Rate 37 MM/HR (0-20)
--- NOTE | 2022-12-20 20:00 | PC.NURSE ---
This Chairman And Ceo assumed care of this Pt at 1900. Pt denies any pain, reports 20 lbs weight gain within a few days. Denies SOB, CP or palpitations, or fevers. BLL swelling noted. Pt ambulating independently with steady gait. Report given to Genny ZUÑIGA, Pt will be transported to room 362 via W/C, Pt aware of plan.
[2022-12-21 03:31] VITALS: BP 119/62; PULSE 100; RESP 14; TEMP 37.1; O2SAT 96
[2022-12-21 07:29] VITALS: BP 133/90; PULSE 72; RESP 18; TEMP 36.1; O2SAT 98
--- NOTE | 2022-12-21 08:47 | HO.PM.IMPN ---
Subjective Subjective Date of Service: 12/21/22 Interval History: f/u on anemia, leg edam no change Physical Exam Vital Signs: Vital Signs: Last Vital Signs Temp 96.9 F 12/21/22 07:29 Pulse 72 12/21/22 07:29 Resp 18 12/21/22 07:29 BP 133/90 H 12/21/22 07:29 Pulse Ox 98 12/21/22 07:29 O2 Del Method Room Air 12/21/22 07:29 BMI result Body Mass Index 33.4 Const: Other: General: AO X 3, no acute distress Resp: CTA bilateral CVS: S1,S2,RRR GI: +BS, NT, no distention Skin: No rash Neuro: motor grossly intact Psych: appropriate affect Objective Data Active Medications Pharmacy Consult (Consult Rx Perform Med Rec) 1 each MISCELLANE ONCE PRN PRN Reason: Consult order Sodium Chloride (0.9 % Sodium Chloride Flush 3 Ml Syringe) [facility] Last Admin: 12/21/22 07:32 Dose: 3 ml Documented By: LIANA Labs 12/20/22 11:24 12/20/22 11:23 Labs: Laboratory Results - last 24 hr 12/20/22 12/20/22 12/20/22 08:47 08:48 11:23 MCV MCH MCHC RDW Plt Count MPV Immature Gran % (Auto) Neut % (Auto) Lymph % (Auto) [place] % (Auto) Eos % (Auto) Baso % (Auto) Lymph # (Auto) [place] # (Auto) Eos # (Auto) Baso # (Auto) Abs Immat Gran (auto) Absolute Neuts (auto) Absolute Nucleated RBC Nucleated RBC % (auto) ESR Anion Gap 14 Estim Creat Clear Calc 135.2 Estimated GFR > 60 Random Glucose 93 Calcium 9.7 Magnesium Iron TIBC % Saturation Unsat Iron Binding Ferritin Total Bilirubin Direct Bilirubin AST ALT Alkaline Phosphatase Troponin I High Sens C-Reactive Protein B-Natriuretic Peptide Total Protein Albumin Lipase Vitamin B12 Folate TSH Urine Color Dark Yellow Urine Appearance Cloudy Urine pH 5.5 Ur Specific [place] 1.025 Urine Protein Trace Urine Glucose (UA) Negative Urine Ketones Trace Urine Blood Large (3+) H Urine Nitrite Negative Ur Leukocyte Esterase Trace H Urine RBC >20 H Urine WBC 0-5 Ur Squamous Epith Cells 6-10 Calcium Oxalate Crystal Present Urine Bacteria None Seen Hyaline Casts 0-2 Urine Test NEGATIVE Stool Occult Blood Ethyl Alcohol Rheumatoid Factor COVID-19 (MAX) COVID-19 Clin Com Hepatitis A IgM Ab Hep Bs Antigen Hep Bs Antibody Hep B Core Total Ab Hepatitis C Ab (EIA) 12/20/22 12/20/22 12/20/22 11:23 11:23 11:23 MCV MCH MCHC RDW Plt Count MPV Immature Gran % (Auto) Neut % (Auto) Lymph % (Auto) [place] % (Auto) Eos % (Auto) Baso % (Auto) Lymph # (Auto) [place] # (Auto) Eos # (Auto) Baso # (Auto) Abs Immat Gran (auto) Absolute Neuts (auto) Absolute Nucleated RBC Nucleated RBC % (auto) ESR Anion Gap Estim Creat Clear Calc Estimated GFR Random Glucose Calcium Magnesium 2.1 Iron 16 L TIBC 358 % Saturation 4 L Unsat Iron Binding 342 Ferritin 13 Total Bilirubin 0.3 Direct Bilirubin 0.1 AST 21 ALT 12 Alkaline Phosphatase 70 Troponin I High Sens < 2.7 C-Reactive Protein B-Natriuretic Peptide 33 Total Protein 7.6 Albumin 4.0 Lipase 13 Vitamin B12 Folate TSH Urine Color Urine Appearance Urine pH Ur Specific [place] Urine Protein Urine Glucose (UA) Urine Ketones Urine Blood Urine Nitrite Ur Leukocyte Esterase Urine RBC Urine WBC Ur Squamous Epith Cells Calcium Oxalate Crystal Urine Bacteria Hyaline Casts Urine Test Stool Occult Blood Ethyl Alcohol Rheumatoid Factor COVID-19 (MAX) COVID-19 Clin Com Hepatitis A IgM Ab Hep Bs Antigen Hep Bs Antibody Hep B Core Total Ab Hepatitis C Ab (EIA) 12/20/22 12/20/22 12/20/22 11:23 11:23 11:24 MCV 71.3 L MCH 20.8 L MCHC 29.2 L RDW 19.8 H Plt Count 418 H MPV 9.2 L Immature Gran % (Auto) 0.3 Neut % (Auto) 77.0 H Lymph % (Auto) 15.5 L [place] % (Auto) 4.9 Eos % (Auto) 2.0 Baso % (Auto) 0.3 Lymph # (Auto) 1.6 [place] # (Auto) 0.5 Eos # (Auto) 0.2 Baso # (Auto) 0.0 Abs Immat Gran (auto) 0.03 Absolute Neuts (auto) 7.9 Absolute Nucleated RBC 0.000 Nucleated RBC % (auto) 0.0 ESR Anion Gap Estim Creat Clear Calc Estimated GFR Random Glucose Calcium Magnesium Iron TIBC % Saturation Unsat Iron Binding Ferritin Total Bilirubin Direct Bilirubin AST ALT Alkaline Phosphatase Troponin I High Sens C-Reactive Protein 0.91 H B-Natriuretic Peptide Total Protein Albumin Lipase Vitamin B12 Folate TSH Urine Color Urine Appearance Urine pH Ur Specific [place] Urine Protein Urine Glucose (UA) Urine Ketones Urine Blood Urine Nitrite Ur Leukocyte Esterase Urine RBC Urine WBC Ur Squamous Epith Cells Calcium Oxalate Crystal Urine Bacteria Hyaline Casts Urine Test Stool Occult Blood Ethyl Alcohol < 10 Rheumatoid Factor COVID-19 (MAX) COVID-19 Clin Com Hepatitis A IgM Ab Nonreactive Hep Bs Antigen Negative Hep Bs Antibody REACTIVE Hep B Core Total Ab Nonreactive Hepatitis C Ab (EIA) Nonreactive 12/20/22 12/20/22 12/20/22 11:24 11:24 11:25 MCV MCH MCHC RDW Plt Count MPV Immature Gran % (Auto) Neut % (Auto) Lymph % (Auto) [place] % (Auto) Eos % (Auto) Baso % (Auto) Lymph # (Auto) [place] # (Auto) Eos # (Auto) Baso # (Auto) Abs Immat Gran (auto) Absolute Neuts (auto) Absolute Nucleated RBC Nucleated RBC % (auto) ESR 37 H Anion Gap Estim Creat Clear Calc Estimated GFR Random Glucose Calcium Magnesium Iron TIBC % Saturation Unsat Iron Binding Ferritin Total Bilirubin Direct Bilirubin AST ALT Alkaline Phosphatase Troponin I High Sens C-Reactive Protein B-Natriuretic Peptide Total Protein Albumin Lipase Vitamin B12 Folate TSH 0.86 Urine Color Urine Appearance Urine pH Ur Specific [place] Urine Protein Urine Glucose (UA) Urine Ketones Urine Blood Urine Nitrite Ur Leukocyte Esterase Urine RBC Urine WBC Ur Squamous Epith Cells Calcium Oxalate Crystal Urine Bacteria Hyaline Casts Urine Test Stool Occult Blood Ethyl Alcohol Rheumatoid Factor COVID-19 (MAX) Negative COVID-19 Clin Com See Note Hepatitis A IgM Ab Hep Bs Antigen Hep Bs Antibody Hep B Core Total Ab Hepatitis C Ab (EIA) 12/20/22 12/20/22 12/20/22 14:43 16:48 18:15 MCV MCH MCHC RDW Plt Count MPV Immature Gran % (Auto) Neut % (Auto) Lymph % (Auto) [place] % (Auto) Eos % (Auto) Baso % (Auto) Lymph # (Auto) [place] # (Auto) Eos # (Auto) Baso # (Auto) Abs Immat Gran (auto) Absolute Neuts (auto) Absolute Nucleated RBC Nucleated RBC % (auto) ESR Anion Gap Estim Creat Clear Calc Estimated GFR Random Glucose Calcium Magnesium Iron TIBC % Saturation Unsat Iron Binding Ferritin Total Bilirubin Direct Bilirubin AST ALT Alkaline Phosphatase Troponin I High Sens C-Reactive Protein B-Natriuretic Peptide Total Protein Albumin Lipase Vitamin B12 651 Folate 10.1 TSH Urine Color Urine Appearance Urine pH Ur Specific [place] Urine Protein Urine Glucose (UA) Urine Ketones Urine Blood Urine Nitrite Ur Leukocyte Esterase Urine RBC Urine WBC Ur Squamous Epith Cells Calcium Oxalate Crystal Urine Bacteria Hyaline Casts Urine Test Stool Occult Blood POSITIVE Ethyl Alcohol Rheumatoid Factor < 13.0 COVID-19 (MAX) COVID-19 Clin Com Hepatitis A IgM Ab Hep Bs Antigen Hep Bs Antibody Hep B Core Total Ab Hepatitis C Ab (EIA) Assessment and Plan (1) Edema: Status: Acute (2) GI (gastrointestinal bleed): Status: Acute (3) Anemia: Status: Acute Plan 32 year old female with anemia, +occult blood, leg edamea Leg edema, nl BNP--echo to rule out cardiomyopathy, hold of diuretics for now, echo today Microcytic anemia, melana, positive occult--check iron studies, repeat h/h if trending down, gi eval I suspect anemia likely related to menses, positive occult blood could be related to iron Thursh--not resolving, consider biopsy, hiv pending low risk for dvt, ambulate obs pt Time Spent With Patient Time: Total time managing care of this patient today ____ minutes. Quality Stroke Does the patient have a stroke diagnosis?: No VTE Prior VTE?: No VTE Risk Level:: Medical - low VTE Device Contraindication: Treatment Not Indicated VTE Drug Contraindication: Treatment Not Indicated
--- NOTE | 2022-12-21 10:10 | PM.GICN ---
History of Present Illness Data of Consult Service Date: 12/21/22 Requesting physician: [facility] Primary Care Provider: Unknown Physician HPI Reason for consult: Anemia 32 y.o F with no PMH who is currently admitted for a constellation of systemic s/sx as below and gastroenterology consulted for microcytic anemia. Patient reports that for the past 3 months, she has been in very poor health. Has had recurrent URIs, oral sores which were very painful, leading to loss of appetite and 40 lb weight loss. She is also noticing increased dental caries, almost 13 - out of no where. The oral ulcers seem to be cyclic, with a would appear for a week or 2, then disappear for another couple of weeks before we appearing. More recently, for the past few weeks, she has been noticing increased lower leg swelling to the point that she got weeping blisters around her ankles. Has not been able to put on her regular shoes or walk around. Gained almost 20 lbs frmo this. No abdominal pain, shortness of breath, nausea or vomiting. She is aware of her iron deficiency, and recently started p.o. iron supplements. Otherwise, no other new medications. No history of recent sexually transmitted infections. No fevers, night sweats. Weight loss followed by weight gain as above. She does also report a rash on her legs on review of system, which is pustular. Review of Systems Review of Systems: Yes all other systems are reviewed and are negative [facility] Social History Social History Alcohol intake: never Patient Tobacco Use Status: Never used Tobacco Smoked in Last 30 Days: No Use of substances other than those prescribed or required for medical reasons: No Advance Directives: No Advance Directives Information Provided: No Nutrition Risks: No Nutritional Risk Patient : No Meds Allergies Allergy/AdvReac Type Severity Reaction Status Date / Time No Known Allergies Allergy Unverified 02/29/20 16:02 [No Known Allergies*] Active Medications: Current Medications Pharmacy Consult (Consult Rx Perform Med Rec) 1 each MISCELLANE ONCE PRN PRN Reason: Consult order Sodium Chloride (0.9 % Sodium Chloride Flush 3 Ml Syringe) 3 ml IVFLUSH Q[facility] Last Admin: 12/21/22 07:32 Dose: 3 ml Home Medications Medication Instructions Recorded Confirmed Last Taken Type ferrous sulfate 325 mg (65 mg 325 mg PO DAILY 12/20/22 12/20/22 Unknown History iron) tablet (iron) valacyclovir 1 gram tablet 1,000 mg PO DAILY 12/20/22 12/20/22 Unknown History vitamin B complex 1 tab PO DAILY 12/20/22 12/20/22 Unknown History Physical Exam Vital Signs: Vital Signs: Last Vital Signs Temp 96.9 F 12/21/22 07:29 Pulse 72 12/21/22 07:29 Resp 18 12/21/22 07:29 BP 133/90 H 12/21/22 07:29 Pulse Ox 98 12/21/22 07:29 O2 Del Method Room Air 12/21/22 07:29 BMI result Body Mass Index 33.4 Gen appear: NAD, nontoxic appearing HEENT: nonicteric, beefy tongue Chest: CTA CVS: Regular S1/S2 Abd: soft, nontender, nondistended, bowel sounds + Ext: +3 pitting edema with healing blisters around the ankles Neuro: A/Ox3, noted to move all extremities spontaneously Psych: interacting appropriately Results Labs 12/20/22 11:24 12/20/22 11:23 Labs: Short CBC 12/20/22 Range/Units 11:24 WBC 10.2 (4.8-10.8) X10*3/uL Hgb 8.9 L (12.0-16.0) g/dl Hct 30.5 L (37.0-47.0) % Plt Count 418 H (160-400) X10*3/uL BMP 12/20/22 11:23 Sodium 138 Potassium 4.0 Chloride 102 Carbon Dioxide 26 BUN 10 Creatinine 0.69 Calcium 9.7 Liver Function 12/20/22 Range/Units 11:23 Total Bilirubin 0.3 (0.0-1.0) mg/dL Direct Bilirubin 0.1 (0.0-0.5) mg/dL AST 21 (5-31) U/L ALT 12 (0-31) U/L Alkaline Phosphatase 70 (39-117) U/L Albumin 4.0 (3.5-5.0) g/dL Assessment and Plan (1) Anemia: Status: Acute (2) GI (gastrointestinal bleed): Status: Acute (3) Edema: Status: Acute (4) Recurrent oral ulcers: Status: Acute (5) Skin rash: Status: Acute Plan In terms of her iron deficiency anemia - likely being contributed by heavy menstrual cycle however GI bleed not ruled out. Has normal bili which argues against hemolysis however given her multitude of systemic sx, can check haptoblobin and LDH. Black stool reported yest could very well be inthe background of iron supplement. Her recurrent infections with oral and skin lesions are suspicious for immunodeficiency vs auto immune disease nayeli given her age and elevated inflammatory markers. Chronic infections such as hepatitis, HIV already checked for. Normal BG argues against uncontrolled DM. Recommendations: - Follow CBC trend - if not dropping acutely, will set her up for bidirectional endoscopy as outpatient however if significantly drops H/H over the next 1-2 days this will be performed inpatient - Cont iron supplementation - Echo pending - ALVERTO pending - Immunoglobulins ordered - Consider Rheum eval Thank you for the consultation. Please do not hesitate to contact with questions or concerns. Time Spent With Patient Time: Total time managing care of this patient today ____ minutes. Procedures Date of Service Date of Service: 12/21/22
[2022-12-21 11:19] LABS: Hematocrit 29.9 % (37.0-47.0); Hemoglobin 8.7 g/dl (12.0-16.0); Mean Corpuscular HGB Conc 29.1 g/dl (31.0-35.0); Mean Platelet Volume 9.2 fL (9.4-12.3); Platelet Count 410 X10*3/uL (160-400); Red Blood Count 4.15 X10*6/uL (4.20-5.50); Red Cell Distribution Width 20.2 % (11.0-16.0); White Blood Count 6.8 X10*3/uL (4.8-10.8)
[2022-12-21 12:00] VITALS: BP 123/59; PULSE 90; RESP 18; TEMP 36.2; O2SAT 93
--- NOTE | 2022-12-21 13:13 | MHC.CM.PN ---
pt is indepedent working will not need yasmeen wills
--- NOTE | 2022-12-21 13:13 | MHC.CM.PN ---
pt is independent and working dc plan home no servceis
[2022-12-21 16:00] VITALS: BP 107/80; PULSE 85; RESP 17; TEMP 36.2; O2SAT 99
--- NOTE | 2022-12-21 16:45 | P.DS_ITS ---
DS: Providers Provider Date of Service: 12/21/22 Date of admission: 12/20/22 17:13 Primary care physician: Unknown Physician Consults: 12/20/22 17:15 Consult to Gastroenterology Routine Consulting Provider: Doreen Sidhu Reason for consultation: anemia, gib DS: Diagnosis Discharge Diagnosis (1) Anemia: Status: Acute (2) GI (gastrointestinal bleed): Status: Acute (3) Edema: Status: Acute (4) Recurrent oral ulcers: Status: Acute (5) Skin rash: Status: Acute DS: Summary Hospital Course Hospital Course: Chief Complaint: Leg edema and weight gain 32 year old female with with no signficant PMH but over the last several months has been treated for yeast infection, thrush, . Over the last several days she has gained considerable amount of weight--20ib and has developped leg edema. No fever or chills, no HARDY, no sob, no travel. Work up shows microcytic anemia Hgb 9 no new lab since 2019, she had dardk stool in the ED, +occult blood,? BMP normal, BNP normal, TSH normal,? B12, Folate normal, no recent travel, [place] leg negative for DVT. Anaplasma work up negative, ALVERTO pending, Hospital course: Patient was observed overnight, there was no further episode of gi bleeding, H/H was essentially unchnaged. Further lab including HIV was normal, lfts normal, hep B, C normal, ALVERTO pending, anaplasma study, lyme serology, RF is normal, test normal. Echocardiogram normal EF. Etiology of leg edema reamins unsolved and may need further testing on outaptient basis. Due to edema impairing funtioning such as wearing shoes and fiting her clothes will try low dose lasix of 20 mg daily, will have BMP done in a week. As for anemia which is iron defieicy type, she has been seen by GI doctor Nahum and will have outpatient follow up. 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 Discharge coordination time: Greater than 30 minutes Quality: Safe Use of Opioids Does Pt have an Active Cancer Diagnosis on the Problem List?: No Quality: Stroke Does the patient have a stroke diagnosis?: No Physical Exam Vital Signs: Vital Signs: Last Vital Signs Temp 97.1 F 12/21/22 16:00 Pulse 85 12/21/22 16:00 Resp 17 12/21/22 16:00 BP 107/80 12/21/22 16:00 Pulse Ox 99 12/21/22 16:00 O2 Del Method Room Air 12/21/22 16:00 BMI result Body Mass Index 33.4 DS: Data Data Completed and Pending Labs on day of discharge: Laboratory Results - last 24 hr 12/20/22 12/20/22 12/20/22 11:23 11:23 11:24 WBC RBC Hgb Hct MCV MCH MCHC RDW Plt Count MPV Absolute Nucleated RBC Nucleated RBC % (auto) ESR 37 H Iron 16 L TIBC 358 % Saturation 4 L Unsat Iron Binding 342 Ferritin 13 C-Reactive Protein 0.91 H Vitamin B12 Folate Rheumatoid Factor HIV 1&2 Ab/P24 Ag 4thGn 12/20/22 12/20/22 12/20/22 16:48 18:15 18:15 WBC RBC Hgb Hct MCV MCH MCHC RDW Plt Count MPV Absolute Nucleated RBC Nucleated RBC % (auto) ESR Iron TIBC % Saturation Unsat Iron Binding Ferritin C-Reactive Protein Vitamin B12 651 Folate 10.1 Rheumatoid Factor < 13.0 HIV 1&2 Ab/P24 Ag 4thGn Nonreactive 12/21/22 11:10 WBC 6.8 RBC 4.15 L Hgb 8.7 L Hct 29.9 L MCV 72.0 L MCH 21.0 L MCHC 29.1 L RDW 20.2 H Plt Count 410 H MPV 9.2 L Absolute Nucleated RBC 0.000 Nucleated RBC % (auto) 0.0 ESR Iron TIBC % Saturation Unsat Iron Binding Ferritin C-Reactive Protein Vitamin B12 Folate Rheumatoid Factor HIV 1&2 Ab/P24 Ag 4thGn Discharge Plan Discharge Anticipated Discharge Date/Time: 12/21/22 16:45 Patient Disposition: Home, Self-Care Discharge Diagnosis: Anemia, Gi bleeding, leg edema Referrals: [facility] [Provider Group] Physician,Unknown J [Primary Care Provider] - 1 Week Discharge Medications: New furosemide [Lasix] 20 mg tablet 20 mg PO QAM Qty: 7 0RF Continued valacyclovir 1 gram tablet 1,000 mg PO DAILY ferrous sulfate [iron] 325 mg (65 mg iron) Tablet 325 mg PO DAILY vitamin B complex Tablet 1 tab PO DAILY Discharge Orders: Discharge Order (Routine); Ordered 12/21/22 Ordered By: Geoff Singh Diet: Advance to usual diet Activity on Discharge: As tolerated Stand Alone Forms: Patient Portal Discharge page Other Ambulatory Orders: Basic Metabolic Panel (Routine) Timeframe: 1 Week Facility: [facility] - Location: Laboratory Ordered By: Geoff Singh Care Plan Goals: Full work up and resolution of leg edema Health Concerns: Swollen legs anemia, blood in stool Plan of Treatment: Follow up with up with GI clinic follow up with your primary care provider to review lab result Take Lasix 20 mg daily check bmp lab within a week Assessment: as above Patient Instructions: Leg Edema (ED)
[2022-12-22 16:08] LABS: Streptolysin O Antibody 227 IU/mL (<200)
[2022-12-22 17:29] LABS: Lyme Abs Screen <0.90 index
[2022-12-23 15:19] LABS: Anti Nuclear Antibody Screen NEGATIVE (NEGATIVE)
[2022-12-27 11:24] LABS: Babesia IgG <1:64 titer (<1:64); Babesia IgM <1:20 titer (<1:20)
[2022-12-29 08:19] LABS: A. Phagocytophilum Ab IgG <1:64 (<1:64); A. Phagocytophilum Ab IgM <1:20 (<1:20); E. Chaffeensis Ab IgG <1:64 (<1:64); E. Chaffeensis Ab IgM <1:20 (<1:20)
== END 2022-12-21 17:27 | disposition home or self-care (01) ==
LOC: HO.ED 16:11 → HO.EDOVER 17:18 → HO.S3 19:30
PROVIDERS: Physician Assistant Medical; Admitting Provider Internal Medicine; Emergency Provider Emergency Medicine; Visit Provider Internal Medicine
DX: D50.9 Iron deficiency anemia, unspecified (principal); K92.2 Gastrointestinal hemorrhage, unspecified; R60.0 Localized edema; K13.79 Other lesions of oral mucosa; R21 Rash and other nonspecific skin eruption; Z20.822 Contact with and (suspected) exposure to COVID-19; R63.5 Abnormal weight gain; Z68.33 Body mass index [BMI] 33.0-33.9, adult; Z79.899 Other long term (current) drug therapy
CPT/HCPCS: 36415; 71045; 80048; 80076; 80307; 81001; 81003; 81025; 82272; 82607; 82728; 82746; 83540; 83690; 83735; 83880; 84443; 84484; 85025; 85027; 85652; 86038; 86060; 86140; 86431; 86617; 86618; 86666; 86704; 86706; 86709; 86753; 86803; 87340; 87389; 87635; 93005; 93306; 93970; 99221; 99285; Q9957

== ENCOUNTER → 2022-12-20 08:15 | Outpatient (BNV) | payer OTHER, SELFPAY | PROVIDERS: Admitting Provider Internal Medicine; Emergency Provider Emergency Medicine; Visit Provider Internal Medicine Cardiovascular Disease | DX: R00.0 Tachycardia, unspecified (principal); R94.31 Abnormal electrocardiogram [ECG] [EKG] | CPT/HCPCS: 93010 ==

== ENCOUNTER 2022-12-20 17:13 | Outpatient (BNV) | payer OTHER, SELFPAY | END 2022-12-21 07:00 | PROVIDERS: Admitting Provider Internal Medicine; Emergency Provider Emergency Medicine; Visit Provider Internal Medicine Cardiovascular Disease | DX: R06.9 Unspecified abnormalities of breathing (principal) | CPT/HCPCS: 93306 ==

== ENCOUNTER → 2022-12-20 17:13 | Outpatient (BNV) | payer OTHER, SELFPAY | PROVIDERS: Admitting Provider Internal Medicine; Emergency Provider Emergency Medicine; Visit Provider Internal Medicine | DX: D64.9 Anemia, unspecified (principal); K92.2 Gastrointestinal hemorrhage, unspecified; R60.9 Edema, unspecified; K13.79 Other lesions of oral mucosa; R21 Rash and other nonspecific skin eruption | CPT/HCPCS: 99223; 99232; 99239 ==

== ENCOUNTER → 2022-12-20 17:13 | Outpatient (BNV) | payer OTHER, SELFPAY | PROVIDERS: Admitting Provider Internal Medicine; Emergency Provider Emergency Medicine; Visit Provider Internal Medicine | DX: D64.9 Anemia, unspecified (principal); K92.2 Gastrointestinal hemorrhage, unspecified; R60.9 Edema, unspecified; K13.79 Other lesions of oral mucosa; R21 Rash and other nonspecific skin eruption | CPT/HCPCS: 99232 ==

== ENCOUNTER 2023-01-06 15:32 | Outpatient (REF) | payer OTHER, SELFPAY ==
[2023-01-06 16:37] LABS: MANUAL DIFF FLAG NO
[2023-01-06 17:05] LABS: Basophils Percent Auto 0.5 % (0-2); Eosinophils Absolute Auto 0.3 X10*3/uL (0.0-0.4); Eosinophils Percent Auto 4.2 % (0-4); Hematocrit 32.5 % (37.0-47.0); Hemoglobin 9.4 g/dl (12.0-16.0); Imm Gran Abs Auto 0.02 X10*3/uL (0.00-0.03); Imm Gran Pct Auto 0.3 % (0.0-0.4); Lymphocytes Absolute Auto 1.4 X10*3/uL (1.2-4.9); Lymphocytes Percent Auto 22.1 % (20-40); Mean Corpuscular HGB Conc 28.9 g/dl (31.0-35.0); Mean Corpuscular Hemoglobin 21.5 pg (27.0-33.0); Mean Corpuscular Volume 74.4 fL (80.0-98.0); Mean Platelet Volume 9.2 fL (9.4-12.3); Monocytes Absolute Auto 0.4 X10*3/uL (0.1-1.2); Monocytes Percent Auto 5.4 % (2-11); Neutrophils Absolute Auto 4.4 x10*3/uL (2.0-8.3); Neutrophils Percent Auto 67.5 % (45-73); Platelet Count 412 X10*3/uL (160-400); Red Blood Count 4.37 X10*6/uL (4.20-5.50); Red Cell Distribution Width 20.2 % (11.0-16.0); White Blood Count 6.5 X10*3/uL (4.8-10.8)
[2023-01-06 17:15] LABS: Appearance Urine Clear; Color Urine Yellow; Glucose Urine UA Negative (Negative); Leukocyte Esterase Urine Negative (Negative); Nitrite Urine Negative (Negative); Urine Blood Negative (Negative); Urine Ketones Negative (Negative); Urine Protein Negative (Neg-Trace)
[2023-01-06 17:43] LABS: Alanine Aminotransferase 12 U/L (0-31); Albumin Level 3.8 g/dL (3.5-5.0); Alkaline Phosphatase 77 U/L (39-117); Aspartate Amino Transferase 16 U/L (5-31); Bilirubin Direct 0.1 mg/dL (0.0-0.5); Bilirubin Total 0.3 mg/dL (0.0-1.0); Iron 20 mcg/dL (30-160); Percent Iron Saturation 6 % (15-50); Total Iron Binding Capacity 350 mcg/dL (228-428); Total Protein 7.4 g/dL (6.5-8.0); Unsaturated Iron Binding 330 ug/dL
[2023-01-06 17:50] LABS: Ferritin 15 ng/mL (10-122)
[2023-01-08 06:28] LABS: Immunoglobulin E 39 kU/L (<OR=114)
[2023-01-08 16:03] LABS: Antibody to SS-A Antigen <1.0 NEG AI (<1.0 NEG); Antibody to SS-B Antigen <1.0 NEG AI (<1.0 NEG)
[2023-01-08 19:53] LABS: Immunoglobulin A 178 mg/dL (47-310); Immunoglobulin G 1352 mg/dL (600-1640); Immunoglobulin M 249 mg/dL (50-300)
[2023-01-10 16:14] LABS: Immunoglobulin D 8 mg/L (<179)
[2023-02-02 09:10] LABS: Cryoglobulin, Qual NONE DETECTED
== END 2023-01-06 15:33 | disposition home or self-care (01) ==
LOC: HO.LAB 15:32
PROVIDERS: Visit Provider Internal Medicine
DX: K13.79 Other lesions of oral mucosa (principal); D64.9 Anemia, unspecified; R21 Rash and other nonspecific skin eruption; R60.9 Edema, unspecified; R31.9 Hematuria, unspecified
CPT/HCPCS: 36415; 80076; 81003; 82595; 82728; 82784; 82785; 83540; 85025; 86160; 86235

== ENCOUNTER 2023-01-06 15:34 | Outpatient (AMB) | payer OTHER, SELFPAY ==
--- NOTE | 2023-01-06 15:36 | A.OFFVIS_ITS ---
Intake Vital Signs 01/06/23 15:40 Height 5 ft 6 in Weight 207 lb 3.752 oz BMI 33.4 BP 136/86 Blood Pressure Location Lt brachial Position Sitting Pulse 112 H Intake Visit Reasons: Anemia Intake Note: Tiffanie presents in office as a follow up anemia. CC: She is having swollen legs and not sure what is going on. She has had canker sores on her tongue. She had lost 60 pounds and now she is gaining weight due to water build up in her body. Liquid was coming out of the ankles because she is so swollen and she is also losing her hair. She is also getting burn meraz on her body and she does not know what is happening. 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 12/21/22: Patient reports that for the past 3 months, she has been in very poor health.? Has had recurrent URIs, oral sores which were very painful, leading to loss of appetite and 40 lb weight loss.? She is also noticing increased dental caries, almost 13 - out of no where. The oral ulcers seem to be cyclic, with a would appear for a week or 2, then disappear for another couple of weeks before we appearing.? More recently, for the past few weeks, she has been noticing increased lower leg swelling to the point that she got weeping blisters around her ankles.? Has not been able to put on her regular shoes or walk around. Gained almost 20 lbs frmo this. No abdominal pain, shortness of breath, nausea or vomiting.? She is aware of her iron deficiency, and recently started p.o. iron supplements. Otherwise, no other new medications.? No history of recent sexually transmitted infections.? No fevers, night sweats. Weight loss followed by weight gain as above. She does also report a rash on her legs on review of system, which is pustular. 01/06/23: Reports no change in symptoms since she was last seen. Unfortunately was discharged the same day as the consultation and therefore lab work was not ordered, will be ordered today. Lower extremity weakness continues to worsen despite taking lasix. Pt working on finding a PCP but will need a refill on this. In addition, also has noticed rash on her trunk which starts off as small bumps and then becomes hyperpigmented, non pruritic, nontender. No fevers, chills, night sweats or unintentional weight loss - in fact has been gaining weight rapidly (suspect water weight due to generalised anasarca) PFSH Family History (Updated 01/06/23 @ 15:41 by WOJCIECH Blanco) Maternal Grandfather Colon cancer Social History Alcohol intake: never Patient Tobacco Use Status: Never used Tobacco service: No Review of Systems Const All systems reviewed & are unremarkable except as noted in HPI and below Physical Exam Vital Signs: Last Vital Signs Pulse 112 H 01/06/23 15:40 BP 136/86 01/06/23 15:40 BMI result Body Mass Index 33.4 Gen appear: NAD HEENT: nonicteric, no cervical LN CVS: S1,S2 no murmurs ABd: soft, nontender, nondistended Chest: CTA Ext: severe pitting edema till thighs with blistering Derm: small hyperpigmented macules on abd Assessment & Plan Assessment & Plan (1) Recurrent oral ulcers: Code(s): K13.79 - Other lesions of oral mucosa (2) Anemia: Code(s): D64.9 - Anemia, unspecified (3) Skin rash: Code(s): R21 - Rash and other nonspecific skin eruption (4) Edema: Code(s): R60.9 - Edema, unspecified Plan In terms of her iron deficiency anemia - likely being contributed by heavy menstrual cycle however GI bleed not ruled out. Will set up EGD/colo on an elective basis. Pt would like to defer until her underlying systemic illness is better managed which is reasonable. Her recurrent infections with oral and skin lesions are suspicious for immunodeficiency vs auto immune disease nayeli given her age and elevated inf lammatory markers. Chronic infections such as hepatitis, HIV already checked for. Immunoglobulins, cryglobulin, Sjogren panel ordered. Initially UA showed RBCs however repeat UA without blood and Cr normal which argues against any GN at this time. Will get another UA. Recommendations: - Work up ordered as below - Recheck iron studies on iron supplements - if not improving adequately, may need to expedite the endoscopy - CT Abd/pel with contrast to r/o pelvic compression leading to SOHAM. - Pt was also strongly advised to seek a PCP Close follow up in 4 weeks Orders: Orders Immunoglobulin A 01/06/23 K13.79 - Other lesions of oral mucosa Immunoglobulin D 01/06/23 K13.79 - Other lesions of oral mucosa Immunoglobulin E 01/06/23 K13.79 - Other lesions of oral mucosa Immunoglobulin G 01/06/23 K13.79 - Other lesions of oral mucosa Immunoglobulin M 01/06/23 K13.79 - Other lesions of oral mucosa Complement C4 01/06/23 R21 - Rash and other nonspecific skin eruption Cryoglobulin 01/06/23 R21 - Rash and other nonspecific skin eruption Sjogren's Antibodies 01/06/23 K13.79 - Other lesions of oral mucosa Liver Panel 01/06/23 D64.9 - Anemia, unspecified Complete Blood Count Auto Diff 01/06/23 D64.9 - Anemia, unspecified CT abdomen pelvis w IV con 01/06/23 R60.9 - Edema, unspecified Ferritin 01/06/23 D64.9 - Anemia, unspecified IRON PROFILE 01/06/23 D64.9 - Anemia, unspecified UA and rflx microscopic 01/06/23 R31.9 - Hematuria, unspecified Medications: New furosemide 40 mg PO DAILY 90 tabs 0RF Coding Level of Care Code Est Pt Level 5 (65302) Diagnoses Recurrent oral ulcers K13.79 Anemia D64.9 Skin rash R21 Edema R60.9
[2023-01-06 15:40] VITALS: BP 136/86; PULSE 112; BMI 33.4
== END 2023-01-06 16:09 | disposition home or self-care (01) ==
PROVIDERS: Visit Provider Internal Medicine
DX: D64.9 Anemia, unspecified (principal); K13.79 Other lesions of oral mucosa; R21 Rash and other nonspecific skin eruption; R60.9 Edema, unspecified
CPT/HCPCS: 99214

== ENCOUNTER 2023-02-03 15:40 | Outpatient (AMB) | payer OTHER, SELFPAY ==
--- NOTE | 2023-02-03 15:42 | MHC.OFFVIS ---
Intake Vital Signs 02/03/23 15:43 Height 5 ft 6 in Weight 205 lb 14.588 oz BMI 33.2 BP 152/98 H Blood Pressure Location Lt brachial Position Sitting Pulse 103 H Pulse Source Pulse Oximeter Pulse Oximetry (%) 99 Oxygen Delivery Method Room Air Intake Visit Reasons: 4 week follow up Intake Note: Pt presents to the office today for a 4 week follow up. Pt states she is feeling okay. Pt states she had a dark stool yesterday but since her ER visit she hasnt had any black stool except yesterday. Allergies No Known Allergies [No Known Allergies*] Allergy (Unverified 02/03/23 15:50) HPI HPI Comments History of Present Illness Details 32 y.o F with no PMH who is currently admitted for a constellation of systemic s/sx as below and was seen as inpatient. 12/21/22: Patient reports that for the past 3 months, she has been in very poor health.? Has had recurrent URIs, oral sores which were very painful, leading to loss of appetite and 40 lb weight loss.? She is also noticing increased dental caries, almost 13 - out of no where. The oral ulcers seem to be cyclic, with a would appear for a week or 2, then disappear for another couple of weeks before we appearing.? More recently, for the past few weeks, she has been noticing increased lower leg swelling to the point that she got weeping blisters around her ankles.? Has not been able to put on her regular shoes or walk around. Gained almost 20 lbs frmo this. No abdominal pain, shortness of breath, nausea or vomiting.? She is aware of her iron deficiency, and recently started p.o. iron supplements. Otherwise, no other new medications.? No history of recent sexually transmitted infections.? No fevers, night sweats. Weight loss followed by weight gain as above. She does also report a rash on her legs on review of system, which is pustular. 01/06/23: Reports no change in symptoms since she was last seen. Unfortunately was discharged the same day as the consultation and therefore lab work was not ordered, will be ordered today. Lower extremity weakness continues to worsen despite taking lasix. Pt working on finding a PCP but will need a refill on this. In addition, also has noticed rash on her trunk which starts off as small bumps and then becomes hyperpigmented, non pruritic, nontender. No fevers, chills, night sweats or unintentional weight loss - in fact has been gaining weight rapidly (suspect water weight due to generalised anasarca) 02/03/23: Reports some improvement in lower extremity swelling with lasix. More recently has been noticing diffuse cystic nodules all over her upper body including trunk and extremities. Due to see PCP next week. Derm appt not till 2023. CT Abd/pel still pending. Labs reviewed and anemia stable. Pt remains on iron supplements. Reports periods not as heavy as before, changes pads 4-5 times a day. PFSH Family History Maternal Grandfather Colon cancer Social History Alcohol intake: never Patient Tobacco Use Status: Never used Tobacco service: No Review of Systems Const All systems reviewed & are unremarkable except as noted in HPI and below Physical Exam Vital Signs: Last Vital Signs Pulse 103 H 02/03/23 15:43 BP 152/98 H 02/03/23 15:43 Pulse Ox 99 02/03/23 15:43 Oxygen Delivery Method Room Air 02/03/23 15:43 BMI result Body Mass Index 33.2 Gen appear: NAD HEENT: nonicteric, no cervical LN CVS: S1,S2 no murmurs ABd: soft, nontender, nondistended Chest: CTA Ext: severe pitting edema till thighs Derm: Cystic papules on trunk, arms and underarms of varying age and size Assessment & Plan Assessment & Plan (1) Recurrent oral ulcers: Code(s): K13.79 - Other lesions of oral mucosa (2) Anemia: Code(s): D64.9 - Anemia, unspecified (3) Skin rash: Code(s): R21 - Rash and other nonspecific skin eruption (4) Edema: Code(s): R60.9 - Edema, unspecified Plan In terms of her iron deficiency anemia - will set up EGD/colo on an elective basis. Golytely prep Rxed and instructions reviewed. Pt to HOLD her iron pills for 5 days prior to the procedure. Her recurrent infections with oral and skin lesions are suspicious for immunodeficiency vs auto immune disease nayeli given her age and elevated inflammatory markers. Chronic infections such as hepatitis, HIV already checked for. Immunoglobulins, cryglobulin, Sjogren panel negative. CT Abd/pel pending to r/o pelvic compression leading to SOHAM. Recommendations: - EGD/colo to be booked in the next 1-2 months - CT Abd/pel with contrast kadeem for next month. - Antiseptic wash Rxed however pt was also strongly advised to see Derm sooner than later - Requests a refill on lasix, BMP ordered Orders: Orders Basic Metabolic Panel 02/03/23 R60.9 - Edema, unspecified Medications: New peg 3350-electrolytes 236-22.74-6.74 -5.86 gram (Golytely) as per split prep instructions, until fecal effluent is clear 240 mL PO Q10M 4,000 mL 0RF colonoscopy chlorhexidine gluconate 4% (Antiseptic Skin Cleanser (chlorhexidine)) 1 appl topical DAILY 3 days 237 mL 0RF Coding Level of Care Code Est Pt Level 4 (39285) Diagnoses Recurrent oral ulcers K13.79 Anemia D64.9 Skin rash R21 Edema R60.9
[2023-02-03 15:43] VITALS: BP 152/98; PULSE 103; O2SAT 99; BMI 33.2
== END 2023-02-03 16:22 | disposition home or self-care (01) ==
PROVIDERS: Visit Provider Internal Medicine
DX: K13.79 Other lesions of oral mucosa (principal); D64.9 Anemia, unspecified; R21 Rash and other nonspecific skin eruption; R60.9 Edema, unspecified
CPT/HCPCS: 99214

== ENCOUNTER → 2023-02-03 15:40 | Outpatient (BNVA) | payer OTHER, SELFPAY | PROVIDERS: Visit Provider Internal Medicine ==

== ENCOUNTER 2023-02-04 16:53 | Outpatient (REF) | payer OTHER, SELFPAY ==
[2023-02-04 18:05] LABS: Anion Gap 12 (12-20); Blood Urea Nitrogen 9 mg/dL (9-16); Calcium 9.7 mg/dL (8.4-10.2); Carbon Dioxide 31 mmol/L (22-29); Chloride 102 mmol/L (96-108); Estimated Glomerular Filt Rate > 60; Glucose Random 98 mg/dL (60-115); Potassium 4.6 mmol/L (3.3-5.1); Sodium 140 mmol/L (135-145)
== END 2023-02-04 16:54 | disposition home or self-care (01) ==
LOC: HO.LAB 16:53
PROVIDERS: Visit Provider Internal Medicine
DX: R06.9 Unspecified abnormalities of breathing (principal)
CPT/HCPCS: 36415; 80048

== ENCOUNTER 2023-02-11 12:07 | Outpatient (AMB) | payer OTHER, SELFPAY ==
[2023-02-11 12:08] VITALS: BP 132/84; PULSE 125; TEMP 36.9; O2SAT 99; BMI 33.0
--- NOTE | 2023-02-11 12:08 | MHC.OFFWIV ---
Intake Vital Signs 02/11/23 12:08 Height 5 ft 6 in Weight 204 lb 6 oz BMI 33.0 BP 132/84 Blood Pressure Location Rt brachial Position Sitting Pulse 125 H Pulse Source Pulse Oximeter Temp 98.4 F Temp Source Oral Pulse Oximetry (%) 99 Oxygen Delivery Method Room Air Intake Visit Reasons: EST/infection on left hand Intake Note: Pt is here today for infection on LT hand finger . pt states started 3 days ago. sores all over body she states starts as tiny dots then they open. Been going on for 4 months. Patient Tobacco Use Status: Never used Tobacco Allergies bees Allergy (Intermediate, Uncoded 02/11/23 12:16) Difficulty Breathing Do you need a note to return to daycare/school/sports/work: No HPI HPI Comments History of Present Illness Details 30-year-old female that presents for infection of her finger. Patient states that for the past several months he has been developing abscesses. She developed 1 on the finger has become red and painful. it typically drain neuroma but this has not drained. She denies any fevers chills. PFSH Family History Maternal Grandfather Colon cancer Social History Alcohol intake: never Patient Tobacco Use Status: Never used Tobacco service: No Review of Systems Const All systems reviewed & are unremarkable except as noted in HPI and below Denies fever(s), Denies headache(s) and Denies weakness Eyes Reports no additional complaints ENT Reports no additional complaints and Denies headache(s) Card Reports no additional complaints, Denies chest pain, Denies leg edema and Denies dyspnea Resp Denies cough and Denies dyspnea GI Denies abdominal pain, Denies nausea and Denies vomiting Denies urinary frequency and Denies dysuria Musc Reports no additional complaints Skin/Breast Details: Recurrent abscesses Neuro Denies headache(s) and Denies weakness Psych Reports no additional complaints Endo Reports no additional complaints Physical Exam Vital Signs: Last Vital Signs Temp 98.4 F 02/11/23 12:08 Pulse 125 H 02/11/23 12:08 BP 132/84 02/11/23 12:08 Pulse Ox 99 02/11/23 12:08 Oxygen Delivery Method Room Air 02/11/23 12:08 BMI result Body Mass Index 33.0 Skin Other: tender fluctuant abscess on the dorsal aspect of right ring finger. Flexion intact no swelling at the distal tip. No pain in the wrist. No streaking Office Procedures I&D Drain 15937-Gihgdqxm of Skin Abscess, simple All charges added?: Procedure code (CPT) selection complete Assessment & Plan Assessment & Plan (1) Abscess of finger: Code(s): L02.519 - Cutaneous abscess of unspecified hand Plan VSS. On exam patient presents alert and oriented no acute distress Exam notable fortender fluctuant abscess on the dorsal aspect of right ring finger. Flexion intact no swelling at the distal tip. No pain in the wrist. No streaking. given had no fusiform swelling able to flex the finger as well as erythema and swelling on the dorsal aspect low suspicion for flexor tenosynovitis. Will drain abscess at bedside place patient on Bactrim and stress strict return precautions. digital block performed I and D performed a bedside purulent material expressed wound culture sent. The wound was irrigated and dressed. Patient placed on Bactrim twice daily for 7 days. Discharge instructions, follow up and treatment are discussed with patient in my usual fashion. Alternatives in treatment are also discussed. The patient will return for worsening symptoms or as needed. Advised that any labs/imaging ordered will be followed up on and contact made if further treatment needed. Counseled that patient's condition may require further evaluation and/or treatment. Symptoms of concern for worsening disorder discussed in detail in my customary manner. Patient does verbalize understanding of the plan, there are no apparent barriers to communication. The patient is given the opportunity to ask questions and have them answered to his/her satisfaction Orders: Orders Routine Culture w Gram Stain Today L02.519 - Cutaneous abscess of unspecified hand AMB Incision & Drainage Today L02.519 - Cutaneous abscess of unspecified hand Medications: New sulfamethoxazole-trimethoprim 800-160 mg (Bactrim DS) 1 tab PO BID 7 days 14 tabs 0RF Patient Instructions: Your abscess was drained. As we discussed this is a high risk area. It redness starts spreading to the hand we developed pain in the hand wrist or forearm or inability to flex the finger or fever or any concerning symptoms please report to the emergency department immediately. Coding Level of Care Code Est Pt Level 4 (65797) Diagnoses Abscess of finger L02.519 CPT Codes I&D Drain - Drain 1: 47281-Rqtbptlq of Skin Abscess, simple ([id number])
== END 2023-02-11 13:33 | disposition home or self-care (01) ==
PROVIDERS: Visit Provider Physician Assistant
DX: L02.511 Cutaneous abscess of right hand (principal)
CPT/HCPCS: 10060; 99214

== ENCOUNTER 2023-02-11 13:40 | Outpatient (REF) | payer OTHER, SELFPAY | END 2023-02-11 13:41 | disposition home or self-care (01) | LOC: HO.LAB 13:40 | PROVIDERS: Visit Provider Physician Assistant | DX: L02.512 Cutaneous abscess of left hand (principal) | CPT/HCPCS: 87070; 87077; 87186; 87205 ==

== ENCOUNTER 2023-03-02 08:40 | Outpatient (REF) | payer OTHER, SELFPAY ==
--- NOTE | ~2023-03-02 | CT_ITS ---
EXAMINATION: CT ABDOMEN AND PELVIS WITH CONTRAST CLINICAL INFORMATION: Edema COMPARISON: Previous CT of the abdomen and pelvis and pelvic ultrasound April 2019 TECHNIQUE: Multidetector volumetric images were obtained from the superior aspect of the liver through the pubic symphysis following administration 85 mL of Omnipaque 350 intravenous contrast. Sagittal and coronal reformatted images were obtained on the technologist's workstation. Oral contrast: Yes This CT examination was performed using dose optimization techniques as appropriate, variously including the following: *Automated exposure control *Adjustment of mA and/or kV according to patient size (this includes techniques or standardized protocols for targeted exams where dose is matched to indication/reason for exam; i.e. extremities or head) *Use of iterative reconstruction technique DLP: 559 mGy-cm FINDINGS: LUNG BASES: The visualized lung bases are unremarkable. LIVER, GALLBLADDER, AND BILIARY TREE: The liver is normal in size, shape, and attenuation. No focal hepatic lesion or biliary ductal dilatation is present. The gallbladder is unremarkable with no evidence of radiopaque gallstones, gallbladder wall thickening, or obvious pericholecystic inflammatory changes. PANCREAS: Unremarkable. SPLEEN: Unremarkable. ADRENAL GLANDS: Unremarkable. KIDNEYS AND URETERS: The kidneys are normal in size, shape, and attenuation. 2 left lower pole renal stones largest measuring 4 mm. Small cyst in the upper pole of the left kidney. No imaging follow-up recommended. BLADDER: Not optimally distended. GASTROINTESTINAL TRACT: Stool throughout the colon suggestive of constipation. The small and large bowel are unremarkable. The appendix is unremarkable. ABDOMINAL WALL: No significant hernia is appreciated. LYMPH NODES: Normal. VASCULAR: Unremarkable. PELVIC VISCERA: Unremarkable. OSSEOUS STRUCTURES: Healing right fifth through eighth lateral rib fractures. CT/CT abdomen pelvis w IV con IMPRESSION: No pelvic or retroperitoneal mass. Stool throughout the colon suggestive of constipation. Left renal stones. Multiple healing right rib fractures. Fleischner guidelines were followed.
[2023-03-02] MEDS: iohexoL 350 MG/ML 100 ML INFUS..BTL IV (11:22)
== END 2023-03-02 08:41 | disposition home or self-care (01) ==
LOC: HO.CT 08:40
PROVIDERS: Visit Provider Internal Medicine
DX: R60.9 Edema, unspecified (principal)
CPT/HCPCS: 74177; Q9967

== ENCOUNTER 2023-04-22 15:22 | Outpatient (AMB) | payer OTHER, SELFPAY ==
[2023-04-22 15:27] VITALS: BP 130/80; BMI 31.5
--- NOTE | 2023-04-22 15:27 | MHC.PC.OV ---
Vital Signs 04/22/23 15:27 Height 5 ft 6 in Weight 195 lb BMI 31.5 BP 130/80 Blood Pressure Location Lt brachial Position Sitting Pulse Source Pulse Oximeter Oxygen Delivery Method Room Air Intake Visit Reasons: New patient Intake Note: Patient is a new patient here to establish care for Edema an ongoing skin rash. Transferring care from [facility]. 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 Accompanied by: Self / Same As Patient Allergies bees Allergy (Intermediate, Uncoded 04/22/23 15:38) Difficulty Breathing Medication List - Last Reconciled 04/22/23 by Kit Reyes PA-C ferrous sulfate (iron) 325 mg PO DAILY furosemide 60 mg (1.5 x 40 mg) PO DAILY 10 days vitamin B complex 1 tab PO DAILY Tobacco use date assessed: 04/22/23 Dental Screening Dental Screen Date: 04/22/23 Did you have a dental visit in the last 12 months?: Yes Did you have a dental problem in the last 6 months where you did not have access to dental care?: No Was dental information given to patient?: Patient has dentist HPI New patient HPI Details Patient is a 32-year-old female here today for an establish care visit. Patient has past medical history significant for iron deficiency anemia, edema Prev PCPCat [facility]. Over last 6 months patient has been experiencing bilateral lower extremity edema, episodes mouth sores. And continued skin wounds culture MRSA positive. She was hospitalized in December of 2022 for acute lower extremity edema and mouth ulcerations. She was found to have anemia (iron deficiency) . Further workup with Rheumatology labs and infectious disease labs were centrally negative. Until this day unclear what has caused her edema and mouth ulcerations. .. Iron deficiency anemia: Has not been using iron supplementation. Advised to start taking this medication. She does report hair thinning and some fatigue. .. [facility] Family History Maternal Grandfather Colon cancer Social History Housing: House Alcohol intake: never Patient Tobacco Use Status: Never used Tobacco e-Cigarette/Vaping Use: Never Used service: No Current occupational status: employed Cognitive needs: No Hearing needs: No Vision needs: Yes Questionnaire PHQ-9 Over the last 2 weeks, how often have you been bothered by any of the following problems? 1. Little interest or pleasure in doing things: not at all 2. Feeling down, depressed, or hopeless: not at all 3. Trouble falling or staying asleep, or sleeping too much: not at all 4. Feeling tired or having little energy: not at all 5. Poor appetite or overeating: not at all 6. Feeling bad about yourself - or that you are a failure or have let yourself or your family down: not at all 7. Trouble concentrating on things, such as reading the newspaper or watching television: not at all 8. Moving or speaking so slowly that other people could have noticed. Or the opposite - being so fidgety or restless that you have been moving around a lot more than usual: not at all 9. Thoughts that you would be better off or of hurting yourself in some way: not at all Total score: 0 Depression Screening Interpretation: Negative Depression Screening Done: Yes 61722 - PHQ-9 Billing: Yes Source: Developed by Drs. Josiah Brush, Carrie Hernandez, Massimo Espino and colleagues, with an educational min from [email or web address]. Thrive Questionnaire Date Thrive assessed: 12/21/22 I am a: Patient What is your living situation today?: I have a steady place to live Within the past 12 months, did the food you bought not last and you didn't have the money to get more?: Never true Within the past 12 months, did you worry whether your food would run out before you got money to buy more?: Never true Do you have trouble paying for medicines?: No Do you have trouble getting transportation to medical appointments?: No Do you have trouble paying your heating and electricity bill?: No Do you have trouble taking care of your child, family member or friend?: No Do you have trouble with day-to-day activities such as bathing, preparing meals, shopping, managing finances, etc.?: No Are you currently unemployed and looking for a job?: No Are you interested in more education?: No Please select the resources that you would like help with: None Currently or been in a relationship where the following occur: no concerns reported AUDIT C Alcohol Use Questionnaire (AUDIT-C) 1. How often do you have a drink containing alcohol?: Never 3. How often do you have six or more drinks on one occasion?: Never Total Score: 0 ELOY-7 AMB Questionnaire ELOY-7 Date ELOY - 7 assessed: 04/22/23 Feeling nervous, anxious, or on edge: 0 = Not at all Not being able to stop or control worryin = Not at all Worrying too much about different things: 0 = Not at all Trouble relaxin = Not at all Being so restless that it is hard to sit still: 0 = Not at all Becoming easily annoyed or irritable: 0 = Not at all Feeling afraid as if something awful might happen: 0 = Not at all Total ELOY-7 score (0-4 normal; 5-9 mild; 10-14 moderate; 15-21 severe): 0 Source: Developed by Drs. Josiah Brush, Carrie Hernandez, Massimo Espino and colleagues, with an educational min from [email or web address]. ELOY-7 Assessment Billing ELOY-7 Assessment Tool: ELOY-7 Assessment 31105 Review of Systems Const Denies headache(s) Eyes Denies loss of vision ENT Denies vertigo, Denies dizziness, Denies headache(s) and Denies sore throat Card Denies chest pain, Denies leg edema and Denies lightheadedness Resp Denies cough, Denies hemoptysis and Denies wheezing GI Denies abdominal pain, Denies melena, Denies constipation, Denies diarrhea and Denies vomiting Denies urinary frequency, Denies dysuria and Denies urinary urgency Musc Denies arthralgias, Denies joint swelling, Denies numbness and Denies tingling Neuro Denies Abnormal speech present, Denies behavioral changes, Denies vertigo, Denies dizziness, Denies headache(s), Denies loss of vision, Denies memory loss, Denies numbness and Denies tingling Psych Denies anxiety, Denies behavioral changes, Denies depression, Denies memory loss and Denies panic attacks Francisco/Lymph Denies easy bleeding and Denies easy bruising Aller/Immun Denies wheezing Physical exam (Primary Care) Vital Signs: Last Vital Signs BP 130/80 04/22/23 15:27 Oxygen Delivery Method Room Air 04/22/23 15:27 BMI result Body Mass Index 31.5 Tobacco/Smoking Status: Tobacco use Status Tobacco use date assessed 04/22/23 04/22/23 15:42 Patient Tobacco Use Status Never used Tobacco 04/22/23 15:36 e-Cigarette/Vaping Use Never Used 04/22/23 15:36 PHQ-9: PHQ-9 Score PHQ-9: Total score 0 04/22/23 16:39 Depression Screening Interpretation: Negative Thrive Assessment: Date of Thrive Assessment Date Thrive assessed 12/21/22 04/22/23 15:36 Currently or been in a relationship where the following occur: no concerns reported Const General: healthy appearing, no acute distress, alert and awake Nutritional Appearance: well nourished Orientation/consciousness: oriented to person, oriented to place and oriented to time HENMT Ears: TM's normal bilaterally General nose exam: Normal nasal mucous membranes and turbinates present Eyes Conjunctivae: conjunctivae normal Sclerae: sclerae normal Pupils: Equal, round and reactive pupils present Neck Neck: Yes no lymphadenopathy and Yes no JVD Thyroid: Thyroid normal Carotids: no bruits Resp Effort & Inspection: normal respiratory effort and not tachypneic Auscultation: no crackles, no rales, no rhonchi and no wheezes Cardio Rate: regular rate Rhythm: regular rhythm Heart sounds: no murmurs and normal S1 and S2 GI Palpation (GI): Soft to palpation, nontender, no hepatomegaly and no splenomegaly Auscultation: normal bowel sounds Skin General skin exam: no rashes or lesions noted and dry skin Neuro General: oriented to person, oriented to place and oriented to time Cranial nerves: Yes Equal, round and reactive pupils present Speech: No Abnormal speech present Gait exam (Neuro): Normal gait present Motor exam (neuro): no tremor noted Extrem Right upper extremity: full ROM Left upper extremity: full ROM Right lower extremity: full ROM; no edema Left lower extremity: full ROM; no edema Psych Mental Status: mental status grossly normal Speech and movement: Normal speech and movement present Affect: normal affect Attitude: cooperative Thought process: Normal thought process present Assessment and Plan Assessment & Plan (1) MRSA (methicillin resistant Staphylococcus aureus): Code(s): A49.02 - Methicillin resistant Staphylococcus aureus infection, unspecified site Plan: Patient does have MRSA positive skin ulcerations. She reports she has had this since she was age 11. Unfortunately she has several areas of her body that have open wounds. Will refer to Infectious Disease and Dermatology. We considered wound management though patient feels she is managing her wounds fine at home. (2) Edema: Code(s): R60.9 - Edema, unspecified Qualifiers: Edema type: localized Qualified Code(s): R60.0 - Localized edema Plan: Unclear what has caused patient has bilateral lower extremity edema. She is interested in higher dose of diuretics as she has been having difficulty putting on her shoes.. (3) Anemia: Code(s): D64.9 - Anemia, unspecified Qualifiers: Anemia type: iron deficiency Iron deficiency anemia type: unspecified iron deficiency Qualified Code(s): D50.9 - Iron deficiency anemia, unspecified Plan: Most recent labs showing significant anemia, microcytic. She is now followed by gastroenterology and is due for colonoscopy and endoscopy. Did have Hemoccult stool positive. Advised to restart iron supplementation. Orders: Orders Complete Blood Count no Diff 04/22/23 D50.9 - Iron deficiency anemia, unspecified IRON PROFILE 04/22/23 D50.9 - Iron deficiency anemia, unspecified TSH reflex Free T4 04/22/23 D50.9 - Iron deficiency anemia, unspecified Comprehensive Met. Panel 04/22/23 D50.9 - Iron deficiency anemia, unspecified Referrals Infectious Disease Referral A49.02 - Methicillin resistant Staphylococcus aureus infection, unspecified site Dermatology Referral A49.02 - Methicillin resistant Staphylococcus aureus infection, unspecified site Medications: New amoxicillin-pot clavulanate 875-125 mg 1 tab PO BID 7 days 14 tabs 0RF A49.02 - Methicillin resistant Staphylococcus aureus infection, unspecified site chlorhexidine gluconate 4% 1 appl topical .3 x week 473 mL 0RF A49.02 - Methicillin resistant Staphylococcus aureus infection, unspecified site erythromycin 1 appl ophthalmic (eye) DAILY 14 days 3.5 grams 0RF H00.019 - Hordeolum externum unspecified eye, unspecified eyelid Changed From ferrous sulfate (iron) 325 mg PO DAILY D50.9 - Iron deficiency anemia, unspecified To ferrous sulfate (iron) 325 mg PO DAILY 30 days 30 tabs 3RF D50.9 - Iron deficiency anemia, unspecified From furosemide 60 mg (1.5 x 40 mg) PO DAILY 10 days 15 tabs 0RF R60.0 - Localized edema To furosemide 80 mg (2 x 40 mg) PO DAILY 30 days 60 tabs 3RF R60.0 - Localized edema Coding Level of Care Code Est Pt Level 4 (42549) Diagnoses MRSA (methicillin resistant Staphylococcus aureus) A49.02 Localized edema R60.0 Edema type: localized Iron deficiency anemia, unspecified iron deficiency anemia type D50.9 Anemia type: iron deficiency Iron deficiency anemia type: unspecified iron deficiency Additional Codes ELOY-7 Assessment Billing - ELOY-7 Assessment Tool: ELOY-7 Assessment 46264 ([id number])
== END 2023-04-22 16:15 | disposition home or self-care (01) ==
PROVIDERS: PCP Physician Assistant; Visit Provider Physician Assistant
DX: A49.02 Methicillin resistant Staphylococcus aureus infection, unspecified site (principal); R60.0 Localized edema; D50.9 Iron deficiency anemia, unspecified
CPT/HCPCS: 99214

== ENCOUNTER 2023-05-19 14:26 | Outpatient (AMB) | payer OTHER, SELFPAY ==
--- NOTE | 2023-05-19 13:56 | MHC.OFFVIS ---
Intake Vital Signs 05/19/23 14:04 Height 5 ft 7 in Weight 211 lb BMI 33.0 BP 136/86 Pulse 109 H Pulse Source Pulse Oximeter Temp 98.5 F Temp Source Oral Pulse Oximetry (%) 98 Intake Visit Reasons: Ref.Eric,methicillin resistan staph.aureus inf. Allergies bees Allergy (Intermediate, Uncoded 05/19/23 14:06) Difficulty Breathing HPI Ref.Eric,methicillin resistan staph.aureus inf. HPI Details She reports pustules in skin presenting as MRSA. She has not taken regular antibacterial body wash but has taken intermittent antibiotics in past. She has outbreaks every couple months. PFSH Family History Maternal Grandfather Colon cancer Social History Housing: House Alcohol intake: never Patient Tobacco Use Status: Never used Tobacco e-Cigarette/Vaping Use: Never Used service: No Current occupational status: employed Cognitive needs: No Hearing needs: No Vision needs: Yes Review of Systems Const All systems reviewed & are unremarkable except as noted in HPI and below Physical Exam Vital Signs: Last Vital Signs Temp 98.5 F 05/19/23 14:04 Pulse 109 H 05/19/23 14:04 BP 136/86 05/19/23 14:04 Pulse Ox 98 05/19/23 14:04 BMI result Body Mass Index 33.0 Const General: cooperative Orientation/consciousness: patient oriented x3 HEENT Head: Yes normal to inspection Mouth: Normal oral and palatal mucosa present Eyes General: appearance normal, both eyes and all related structures Pupils: Equal, round and reactive pupils present Resp Effort & Inspection: normal respiratory effort Cardio Rate: regular rate Rhythm: regular rhythm GI Palpation (GI): Soft to palpation and nontender General: Yes no CVA tenderness Back/Spine/Pelvis Back: no CVA tenderness Skin General skin exam: no rashes or lesions noted Neuro General: patient oriented x3 Cranial nerves: Yes CN's II-XII intact bilaterally and Yes Equal, round and reactive pupils present Extrem General: Yes normal to inspection Psych Appearance: grossly normal Assessment & Plan Assessment & Plan (1) MRSA (methicillin resistant Staphylococcus aureus): Comment: She has had intermittent infection Code(s): A49.02 - Methicillin resistant Staphylococcus aureus infection, unspecified site Plan: Would use chlorhexidine rinse antibacterial two to three times a week. No further antibiotics for prevention as resistance concern. Treat episodes prn need with antibiotics. Coding Level of Care Code New Pt Level 3 (95940) Diagnoses MRSA (methicillin resistant Staphylococcus aureus) A49.02
[2023-05-19 14:04] VITALS: BP 136/86; PULSE 109; TEMP 36.9; O2SAT 98; BMI 33.0
== END 2023-05-19 15:58 | disposition home or self-care (01) ==
LOC: HO.HID 14:26
PROVIDERS: PCP Physician Assistant; Visit Provider Internal Medicine
DX: A49.02 Methicillin resistant Staphylococcus aureus infection, unspecified site (principal)
CPT/HCPCS: 99203

== ENCOUNTER → 2023-05-19 14:26 | Outpatient (BNVA) | payer OTHER, SELFPAY | PROVIDERS: PCP Physician Assistant; Visit Provider Internal Medicine ==

== ENCOUNTER 2023-06-01 14:58 | Outpatient (AMB) | payer OTHER, SELFPAY ==
--- NOTE | 2023-06-01 14:59 | MHC.OFFVIS ---
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 He she has significant edema of the lower extremity. She reports that it has been progressing over the past year. She denies any trauma. She also denies any foreign travel as well. Her legs have been progressively swelling and it is a source of discomfort for her. 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 Patient denies any previous venous surgery or injections. Patient denies any history of DVT/ PE. Patient denies any history of phlebitis. Trial of compression includes - She has been unable to wear due to the significant swelling in high drainage from the wound They now present for vascular evaluation regarding her lower extremities PFSH Family History Maternal Grandfather Colon cancer Social History Housing: House Alcohol intake: never Patient Tobacco Use Status: Never used Tobacco e-Cigarette/Vaping Use: Never Used service: No Current occupational status: employed Cognitive needs: No Hearing needs: No Vision needs: Yes Review of Systems Const Reports as per HPI ENT Reports no additional complaints Card Denies chest pain, Denies chest pain at rest and Denies chest pain with activity Resp Denies chest congestion and Denies cough GI Reports no additional complaints Musc Details: pain over varicosities, aching of lower extremities, swelling, cramping, heaviness and tiredness, itching Denies abnormal gait Skin/Breast Reports pruritus and Denies wounds Neuro Reports no additional complaints and Denies abnormal gait Psych Denies no additional complaints Physical Exam Const General: cooperative, healthy appearing and comfortable Orientation/consciousness: oriented to person, oriented to place and oriented to time Neck Carotids: no bruits Chest Chest palpation & inspection: normal inspection of the chest and normal palpation of entire chest wall Resp Effort & Inspection: normal respiratory effort and able to speak in complete sentences Cardio Rate: regular rate Heart sounds: S1 normal heart sound present and S2 normal heart sound present Peripheral pulses: Peripheral pulses 2+ throughout GI Inspection: Yes normal to inspection Skin Other: +2 edema, right calf ulceration approximately 4 x 5 x 0.1 cm. High volume serous drainage. CEAP Classification C6 - Open ulcer Ep - Etiology Primary As - superficial veins P - reflux General skin exam: dry skin Neuro General: oriented to person, oriented to place and oriented to time Extrem Right lower extremity: full ROM, normal capillary refill and edema Left lower extremity: full ROM, normal capillary refill and edema Psych Mental Status: mental status grossly normal Assessment & Plan Assessment & Plan (1) Varicose veins of right lower extremity with inflammation: Code(s): I83.11 - Varicose veins of right lower extremity with inflammation Plan: she does have significant edema of that right lower extremity with a nonhealing ulcer. I have taken the liberty of ordering venous insufficiency testing to rule that out. Should that prove to be negative she will definitely need to be treated for lymphedema. (2) Lymphedema: Code(s): I89.0 - Lymphedema, not elsewhere classified Plan: She definitely has the signs and symptoms of lymphedema. First we will try to heal that ulcer. Subsequent to that she will need treatment for lymphedema. This was discussed in detail with the patient along with the pathophysiology of lymphedema and possible future treatments including lymphedema pumps. Due to her young age will try to be extremely aggressive in trying to heal ulceration. We will closely follow her and will try to expedite venous insufficiency testing. Thank you for allowing us to assist in her care. Orders: Orders US venous duplex LE BI 1 Week I83.11 - Varicose veins of right lower extremity with inflammation Coding Level of Care Code New Pt Level 4 (23032) Diagnoses Varicose veins of right lower extremity with inflammation I83.11 Lymphedema I89.0
== END 2023-06-01 15:34 | disposition home or self-care (01) ==
PROVIDERS: PCP Physician Assistant; Visit Provider Surgery Vascular Surgery
DX: I83.012 Varicose veins of right lower extremity with ulcer of calf (principal); I89.0 Lymphedema, not elsewhere classified
CPT/HCPCS: 99204

== ENCOUNTER → 2023-06-01 14:58 | Outpatient (BNVA) | payer OTHER, SELFPAY | PROVIDERS: PCP Physician Assistant; Visit Provider Surgery Vascular Surgery ==

== ENCOUNTER 2023-06-10 09:04 | Day surgery (SDC) | payer OTHER, SELFPAY ==
[2023-06-08 14:45] VITALS: BMI 33.0
[2023-06-10 09:09] VITALS: BMI 31.8
[2023-06-10 09:41] LABS: UPreg QC Valid YES; Urine Pregnancy NEGATIVE (NEGATIVE)
[2023-06-10 09:50] VITALS: BP 119/72; PULSE 89; RESP 16; TEMP 36.7; O2SAT 99
--- NOTE | 2023-06-10 10:02 | MHC.SHP ---
Pre-Procedural Eval Section A Date of Service: 06/10/23 Section B Chief Complaint: Anemia, unspecified Details of Present Illness: pyoderma gangrenosum Relevant Family History (Specify if Yes): Yes Relevant Social History: None Present Medications: see Short Stay Collaborative assessment Medical History: Significant History (anemia) History of Previous Operations: Relevant previous surgery/procedure and date(s) (shoulder surgery) Allergies: Allergies Allergy/AdvReac Type Severity Reaction Status Date / Time bees Allergy Intermediate Difficulty Uncoded 06/10/23 09:53 Breathing Review of Systems Sugical H&P ROS: Negative: Constitution, Cardiovascular, Respiratory, Neurological, Psychiatric, Hem-Onc, Allergic/Immunologic, Gastrointestinal, Genitourinary, Musculoskeletal, Integumentary, Endocrine and Eyes/Ears/Nose/Throat Exam Surgical H&P Exam: Normal: HEENT, Normal: Heart, Normal: Lungs, Normal: Extremities, Normal: Abdomen and Normal: Neurological and Significant Findings: Skin (leg ulcer, skin wounds) Plan Diagnosis/Plan: Unchanged I have reviewed the history and physical and performed a pertinent physical examination on my patient. No changes have occurred unless specified. Time Spent With Patient Time: Total time managing care of this patient today ____ minutes.
[2023-06-10] MEDS: Lactated Ringers 1,000 ML 50 ML IVCONT (10:33)
--- NOTE | 2023-06-10 11:37 | W.PM.OPN ---
Operative Note Operative Note Date of Service: 06/10/23 Narrative: Operative Information Procedure Description: EGD, Colonoscopy Indication: anemia Anesthesia: MAC FLEXIBLE TRANSORAL UPPER GASTROINTESTINAL ENDOSCOPY AND COLONOSCOPY PROCEDURE NOTE UPPER ENDOSCOPY Consent: Indications for the procedure and potential complications of bleeding, perforation, reaction to medications and missed diagnosis were discussed with the patient and informed consent was obtained. Instrument: Olympus GIF H 190 J mid size upper endoscope Monitoring: Vital signs and clinical assessment, continuous EKG monitoring, Pulse oximetry, Carbon Dioxide monitoring and blood pressure monitoring were done throughout the procedure. Procedure: The patient was placed in the left lateral decubitis position and pre-procedure medications were administered and a bite block was placed. The endoscope was inserted into the mouth and advanced under direct vision to the third part of duodenum. A careful inspection was made as the upper endoscope was withdrawn including a retroflexed examination of the proximal stomach; Findings and interventions are described below. Findings: Larynx:normal Esophagus: GE junction at 34 cm, diaphragm hiatus at 36 cm, consistent with 2 cm sliding hiatal hernia, erosive esophagitis noted, LA grade B, bx taken from GEJ, distal and proximal areas Stomach: PAtchy erythema. Biopsies were obtained. Grade 2 flap valve on retroflexed examination of the cardia. Duodenum: Normal bulb and descending duodenum, bx taken Intervention: Biopsies as noted above COLONOSCOPY Instrument: Olympus variable stiffness pediatric scope 190L Colonoscopy Monitoring: Vital signs and clinical assessment, continuous EKG monitoring, Pulse oximetry, Carbon Dioxide monitoring and blood pressure monitoring were done throughout the procedure. Colon withdrawal time was 10 minutes. Procedure: The patient was placed in the left lateral decubitis position and pre-procedure medications were administered. After a digital rectal examination of the ano-rectum, the video colonoscope was inserted into the rectum and advanced through the colon to the cecum/TI. The colonoscope was slowly withdrawn in a retrograde panoramic fashion and the colon mucosa was carefully examined including a retroflexed view of the rectum. Findings and interventions are described below. Procedure Difficulty: easy Findings: Terminal Ileum-normal, bx taken Random colon bx taken from right and then left colon Cecum:normal Ascending Colon: normal Transverse Colon -normal Descending Colon:normal Sigmoid Colon: normal Rectum: Retroflexion with small internal hemorrhoids, grade I Anorectum - normal Colon preparation: Bea[place]ont Bowel Preparation Scale Right colon; 2 Transverse colon: 2 Left colon; 2 (0 = Unprepared colon segment with mucosa not seen due to solid stool that cannot be cleared. 1 = Portion of mucosa of the colon segment seen, but other areas of the colon segment not well seen due to staining, residual stool and/or opaque liquid. 2 = Minor amount of residual staining, small fragments of stool and/or opaque liquid, but mucosa of colon segment seen well. 3 = Entire mucosa of colon segment seen well with no residual staining, small fragments of stool or opaque liquid) Impression and Post Procedure Diagnosis: Endoscopy Findings: esophagitis gastritis hiatal hernia Colonoscopy Findings: internal hemorrhoids Plan: Await Pathology results Repeat Colonoscopy aged 45 or earlier if clinically indicated High fiber diet leaflet avoid straining at stool, epsom salts and sitz bath, anusol supps or cream If above neg then small bowel studies with VCE vs CTe or MRe Above findings were reviewed with the patient and relevant handouts were provided if indicated.
[2023-06-10 12:15] VITALS: BP 104/57; PULSE 87; RESP 16; TEMP 36.4; O2SAT 98
[2023-06-10 12:30] VITALS: BP 112/59; PULSE 90; RESP 18; TEMP 36.4; O2SAT 97
== END 2023-06-10 12:48 | disposition home or self-care (01) ==
PROVIDERS: Anesthesiology; Visit Provider Internal Medicine Gastroenterology
PROC: (CPT 43239; principal; 2023-06-10 12:00)
DX: K22.10 Ulcer of esophagus without bleeding (principal); K29.60 Other gastritis without bleeding; K44.9 Diaphragmatic hernia without obstruction or gangrene; K64.0 First degree hemorrhoids; D64.9 Anemia, unspecified; K13.79 Other lesions of oral mucosa; R60.0 Localized edema; R21 Rash and other nonspecific skin eruption; Z86.14 Personal history of Methicillin resistant Staphylococcus aureus infection; Z79.899 Other long term (current) drug therapy
CPT/HCPCS: 43239; 45380; 81025; 88305; 88313; 88342; J1100; J2704

== ENCOUNTER → 2023-06-10 09:04 | Outpatient (BNV) | payer OTHER, SELFPAY | PROVIDERS: Visit Provider Internal Medicine Gastroenterology | DX: K20.90 Esophagitis, unspecified without bleeding (principal); K29.70 Gastritis, unspecified, without bleeding; K44.9 Diaphragmatic hernia without obstruction or gangrene; D64.9 Anemia, unspecified; K64.8 Other hemorrhoids | CPT/HCPCS: 43239; 45380 ==

== ENCOUNTER 2023-06-16 08:37 | Outpatient (REF) | payer OTHER, SELFPAY | END 2023-06-16 08:38 | disposition home or self-care (01) | LOC: HO.US 08:37 | PROVIDERS: PCP Physician Assistant; Visit Provider Surgery Vascular Surgery | DX: I83.11 Varicose veins of right lower extremity with inflammation (principal) | CPT/HCPCS: 93970 ==

== ENCOUNTER 2023-06-17 15:13 | Outpatient (AMB) | payer OTHER, SELFPAY ==
[2023-06-17 15:15] VITALS: BP 130/86; PULSE 112; O2SAT 99; BMI 31.8
--- NOTE | 2023-06-17 15:15 | MHC.OFFVIS ---
Intake Vital Signs 06/17/23 15:15 Height 5 ft 7 in Weight 203 lb BMI 31.8 BP 130/86 Blood Pressure Location Rt brachial Position Sitting Pulse 112 H Pulse Source Pulse Oximeter Pulse Oximetry (%) 99 Oxygen Delivery Method Room Air Intake Visit Reasons: Follow Up 06/09 [facility] Intake Note: Pt presents to the office today for a follow up 06/09/23 [facility]. Pt state she is having bilateral ankle and leg swelling. Pt states her right leg is worse at this time. Allergies bees Allergy (Intermediate, Uncoded 06/17/23 15:17) Difficulty Breathing HPI Follow Up 06/09 [facility] HPI Details Pleasant 32-year-old female presents for follow-up regarding nonhealing right calf ulceration. She has significant edema of the legs. She also has developing some new ulcerations of the hand as well. She has an ambulatory job and walks nearly 5 miles daily. She now presents for follow-up with venous insufficiency testing. [facility] Medical History Varicose veins of right calf Heme positive stool Lymphedema History of MRSA infection Family History Maternal Grandfather Colon cancer Social History Housing: House Alcohol intake: never Patient Tobacco Use Status: Never used Tobacco e-Cigarette/Vaping Use: Never Used service: No Current occupational status: employed Cognitive needs: No Hearing needs: No Vision needs: Yes Review of Systems Const Reports as per HPI ENT Reports no additional complaints Card Denies chest pain, Denies chest pain at rest and Denies chest pain with activity Resp Denies chest congestion and Denies cough GI Reports no additional complaints Musc Details: pain over varicosities, aching of lower extremities, swelling, cramping, heaviness and tiredness, itching Denies abnormal gait Skin/Breast Reports pruritus and Denies wounds Neuro Reports no additional complaints and Denies abnormal gait Psych Denies no additional complaints Physical Exam Vital Signs: Last Vital Signs Pulse 112 H 06/17/23 15:15 BP 130/86 06/17/23 15:15 Pulse Ox 99 06/17/23 15:15 Oxygen Delivery Method Room Air 06/17/23 15:15 BMI result Body Mass Index 31.8 Const General: cooperative, healthy appearing and comfortable Orientation/consciousness: oriented to person, oriented to place and oriented to time Neck Carotids: no bruits Chest Chest palpation & inspection: normal inspection of the chest and normal palpation of entire chest wall Resp Effort & Inspection: normal respiratory effort and able to speak in complete sentences Cardio Rate: regular rate Heart sounds: S1 normal heart sound present and S2 normal heart sound present Peripheral pulses: Peripheral pulses 2+ throughout GI Inspection: Yes normal to inspection Skin Other: +2 edema, with right calf ulceration surrounding cellulitis General skin exam: dry skin Neuro General: oriented to person, oriented to place and oriented to time Extrem Other: Right in cm: Thigh 55 Knee 42.5 Calf 43 Ankle 34 Left in cm: Thigh 55 Knee 40 Calf 40 Ankle 29 Hip/abdomen 90 Right lower extremity: full ROM, normal capillary refill and edema Left lower extremity: full ROM, normal capillary refill and edema Psych Mental Status: mental status grossly normal Results Reviewed Results Reviewed: Brief summary of venous insufficiency testing is as follows: right great saphenous vein: negative right small saphenous vein: negative right accessory vein: none present left great saphenous vein: negative left small saphenous vein: negative left accessory vein: none present Please note there is no evidence of any venous aneurysms or significant tortuosity Assessment & Plan Assessment & Plan (1) Lymphedema: Code(s): I89.0 - Lymphedema, not elsewhere classified Plan: In short the patient has late on sent lymphedema. The patient has been on conservative treatment for at least 3 months with minimal relief. Patient has tried 30 mm of mercury compression garments, elevation, exercise healthy diet and doing manual says self MLD to the best of their ability for over 4 weeks but with no significant relief. She has been compliant with the program but has provided minimal relief. In addition on physical we are noticing hyperpigmentation, lymphorrhea, and hyperplasia. It appears that she has stage 2 lymphedema. Patient has completed multiple forms of conservative therapy yet significant symptoms remain. Patient requires the use of a pneumatic compression device which we will assist in trying to have the patient obtain them. A pneumatic compression device will help reduce swelling and other lymphedema comorbidities. In addition she does have some truncal swelling and will require an advance pump. Thank you for allowing us to assist in this patient's care. (2) Ulcer of right leg: Code(s): L97.919 - Non-pressure chronic ulcer of unspecified part of right lower leg with unspecified severity Qualifiers: Non-pressure ulcer stage: unspecified non-pressure ulcer stage Qualified Code(s): L97.919 - Non-pressure chronic ulcer of unspecified part of right lower leg with unspecified severity Plan: We discussed local wound care with the use of an Buddy wrap. I have taken the liberty of ordering doxycycline. I will have her come back within 1 weeks time to ensure that the infection is improving and that we can get her into a compressive wrap. Thank you for allowing us to assist in her care. If there are any questions or concerns please do not hesitate to contact us. Medications: New doxycycline hyclate 100 mg PO BID 20 caps 0RF L97.919 - Non-pressure chronic ulcer of unspecified part of right lower leg with unspecified severity Coding Level of Care Code Est Pt Level 4 (07810) Diagnoses Lymphedema I89.0 Ulcer of right lower extremity, unspecified ulcer stage L97.919 Non-pressure ulcer stage: unspecified non-pressure ulcer stage
== END 2023-06-17 16:12 | disposition home or self-care (01) ==
PROVIDERS: PCP Physician Assistant; Visit Provider Surgery Vascular Surgery
DX: I89.0 Lymphedema, not elsewhere classified (principal); L97.919 Non-pressure chronic ulcer of unspecified part of right lower leg with unspecified severity
CPT/HCPCS: 99214

== ENCOUNTER → 2023-06-17 15:13 | Outpatient (BNVA) | payer OTHER, SELFPAY | PROVIDERS: PCP Physician Assistant; Visit Provider Surgery Vascular Surgery ==

== ENCOUNTER 2023-06-24 15:22 | Outpatient (AMB) | payer OTHER, SELFPAY ==
[2023-06-24 15:24] VITALS: BMI 31.8
--- NOTE | 2023-06-24 15:24 | A.OFFVIS_ITS ---
Intake Vital Signs 06/24/23 15:24 Height 5 ft 7 in Weight 203 lb BMI 31.8 Intake Visit Reasons: 1 week follow up wound check Intake Note: 1 week follow up LE swelling w/ non healing ulcer right LE, referred to tactile, has appt 07/07/23. Is taking antibiotics, heavy drainage, and changes dressing at least once per day, if not more. Accompanied by: Self / Same As Patient Allergies bees Allergy (Intermediate, Uncoded 06/24/23 15:28) Difficulty Breathing HPI 1 week follow up wound check HPI Details Very pleasant 32-year-old female presents for follow-up regarding nonhealing right lower extremity ulcer. She has significant edema of the lower extremities. It has been developing some ulcerations. She has a very ambulatory job. She now presents for routine follow-up. Of note she has had a course of doxycycline and appears to be doing relatively well with that. [facility] Medical History Varicose veins of right calf Heme positive stool Lymphedema History of MRSA infection Family History Maternal Grandfather Colon cancer Social History Housing: House Alcohol intake: never Patient Tobacco Use Status: Never used Tobacco e-Cigarette/Vaping Use: Never Used service: No Current occupational status: employed Cognitive needs: No Hearing needs: No Vision needs: Yes Review of Systems Const All systems reviewed & are unremarkable except as noted in HPI and below Reports no additional complaints ENT Reports Normal hearing present Card Denies chest pain, Denies chest pain at rest, Denies chest pain with activity and Denies pedal edema Resp Denies cough GI Denies abdominal pain Musc Denies abnormal gait, Denies muscle cramps and Denies radiating pain into limb Skin/Breast Denies skin ulcer and Denies wounds Neuro Reports Normal hearing present and Denies abnormal gait Psych Reports no additional complaints Physical Exam Vital Signs: BMI result Body Mass Index 31.8 Const General: cooperative, healthy appearing and comfortable Orientation/consciousness: oriented to person, oriented to place and oriented to time HEENT Head: Yes normal to inspection Neck Neck: Yes normal visual inspection Carotids: no bruits Chest Chest palpation & inspection: normal inspection of the chest Resp Effort & Inspection: normal respiratory effort and able to speak in complete sentences Auscultation: clear to auscultation bilaterally, no crackles, no rales, no rhonchi and no wheezes Cardio Rate: regular rate Rhythm: regular rhythm Heart sounds: S1 normal heart sound present and S2 normal heart sound present Bruits: no carotid bruits Peripheral pulses: Peripheral pulses 2+ throughout GI Inspection: Yes normal to inspection Skin Other: Right leg pretibial ulcer 3.5 cm in diameter Wounds: no wounds Hair: normal Neuro General: oriented to person, oriented to place and oriented to time Cranial nerves: Yes CN's II-XII intact bilaterally and Yes Normal hearing present Cognition (Neuro): normal cognition Motor exam (neuro): 5/5 motor strength present throughout Extrem Other: venous exam: No significant superficial varicosities or spider telangiectasias, minimal edema General: No clubbing, No cyanosis and No edema Psych Appearance: grossly normal Mental Status: mental status grossly normal Speech and movement: Normal speech and movement present Assessment & Plan Assessment & Plan (1) Ulcer of right leg: Code(s): L97.919 - Non-pressure chronic ulcer of unspecified part of right lower leg with unspecified severity Qualifiers: Non-pressure ulcer stage: unspecified non-pressure ulcer stage Qualified Code(s): L97.919 - Non-pressure chronic ulcer of unspecified part of right lower leg with unspecified severity Plan: In short appears to be doing relatively well. Overall edema seems to be slowly improving along with drainage. We will plan to start with the multilayered compression wrap. She will follow up with us in approximately 4-5 days to ensure that the multilayered compression wrap is doing well. She will continue to finish out her antibiotic regimen. Care of multilayered wrap was discussed with the patient. Should it become an issue she can take out outer layer. Thank you for allowing us to assist in her care. (2) Lymphedema: Code(s): I89.0 - Lymphedema, not elsewhere classified Plan: She is scheduled for evaluation for lymphedema pumps. She will require an advance pump to cover truncal swelling as well. Coding Level of Care Code Est Pt Level 3 (82169) Diagnoses Ulcer of right lower extremity, unspecified ulcer stage L97.919 Non-pressure ulcer stage: unspecified non-pressure ulcer stage Lymphedema I89.0
== END 2023-06-24 16:02 | disposition home or self-care (01) ==
PROVIDERS: PCP Physician Assistant; Visit Provider Surgery Vascular Surgery
DX: L97.919 Non-pressure chronic ulcer of unspecified part of right lower leg with unspecified severity (principal); I89.0 Lymphedema, not elsewhere classified
CPT/HCPCS: 99213

== ENCOUNTER → 2023-06-24 15:22 | Outpatient (BNVA) | payer OTHER, SELFPAY | PROVIDERS: PCP Physician Assistant; Visit Provider Surgery Vascular Surgery ==

== ENCOUNTER → 2023-07-01 09:16 | Outpatient (BNVA) | payer OTHER, SELFPAY | PROVIDERS: PCP Physician Assistant; Visit Provider Surgery Vascular Surgery ==

== ENCOUNTER 2023-07-01 13:40 | Outpatient (AMB) | payer OTHER, SELFPAY ==
[2023-07-01 13:43] VITALS: BMI 31.8
--- NOTE | 2023-07-01 13:43 | MHC.OFFVIS ---
Intake Vital Signs 07/01/23 13:43 Height 5 ft 7 in Weight 203 lb BMI 31.8 Intake Visit Reasons: follow up Multi layer wrap change/ lymphedema Intake Note: 2 day follow up for multi layer dresssing change for lymphedema with non-healing ulcer. Completed Abx and has appt with Tactile 07/07/23. Pt has heavier drainage today after having dressing for 2 days than she did wearing the wrap for 1 week. It soaked through 2 foam guaze pads and the drainage is green. Does not have an odor today and wound looks slightly worse. Accompanied by: Self / Same As Patient Allergies bees Allergy (Intermediate, Uncoded 07/01/23 13:45) Difficulty Breathing HPI follow up Multi layer wrap change/ lymphedema HPI Details Pleasant 32-year-old female presents for follow-up regarding nonhealing right lower extremity ulcer. She has been placed in a multilayered compression wrap. She has had a fair amount of drainage from there. Wrapped it slip a little bit but overall appears to be doing relatively well. [facility] Medical History Varicose veins of right calf Heme positive stool Lymphedema History of MRSA infection Family History Maternal Grandfather Colon cancer Social History Housing: House Alcohol intake: never Patient Tobacco Use Status: Never used Tobacco e-Cigarette/Vaping Use: Never Used service: No Current occupational status: employed Cognitive needs: No Hearing needs: No Vision needs: Yes Review of Systems Const All systems reviewed & are unremarkable except as noted in HPI and below Reports no additional complaints ENT Reports Normal hearing present Card Denies chest pain, Denies chest pain at rest, Denies chest pain with activity and Denies pedal edema Resp Denies cough GI Denies abdominal pain Musc Denies abnormal gait, Denies muscle cramps and Denies radiating pain into limb Skin/Breast Denies skin ulcer and Denies wounds Neuro Reports Normal hearing present and Denies abnormal gait Psych Reports no additional complaints Physical Exam Vital Signs: BMI result Body Mass Index 31.8 Const General: cooperative, healthy appearing and comfortable Orientation/consciousness: oriented to person, oriented to place and oriented to time HEENT Head: Yes normal to inspection Neck Neck: Yes normal visual inspection Carotids: no bruits Chest Chest palpation & inspection: normal inspection of the chest Resp Effort & Inspection: normal respiratory effort and able to speak in complete sentences Auscultation: clear to auscultation bilaterally, no crackles, no rales, no rhonchi and no wheezes Cardio Rate: regular rate Rhythm: regular rhythm Heart sounds: S1 normal heart sound present and S2 normal heart sound present Bruits: no carotid bruits Peripheral pulses: Peripheral pulses 2+ throughout GI Inspection: Yes normal to inspection Skin Other: Right calf measures 4 x 3.5 by 0.1 cm Wounds: no wounds Hair: normal Neuro General: oriented to person, oriented to place and oriented to time Cranial nerves: Yes CN's II-XII intact bilaterally and Yes Normal hearing present Cognition (Neuro): normal cognition Motor exam (neuro): 5/5 motor strength present throughout Extrem Other: venous exam: No significant superficial varicosities or spider telangiectasias, minimal edema General: No clubbing, No cyanosis and No edema Psych Appearance: grossly normal Mental Status: mental status grossly normal Speech and movement: Normal speech and movement present Assessment & Plan Assessment & Plan (1) Ulcer of right leg: Code(s): L97.919 - Non-pressure chronic ulcer of unspecified part of right lower leg with unspecified severity Qualifiers: Non-pressure ulcer stage: unspecified non-pressure ulcer stage Qualified Code(s): L97.919 - Non-pressure chronic ulcer of unspecified part of right lower leg with unspecified severity Plan: In short patient has nonhealing right lower extremity ulcer. We will replace multilayered compression wrap. I have taken the liberty starting ciprofloxacin as it does have a Pseudomonas appearance to it. She will be scheduled for follow-up in about 4 days to ensure that the wrap is functioning correctly. Continue to follow her closely. Thank you for allowing us to assist in his care. Medications: New ciprofloxacin HCl 500 mg PO BID 20 tabs 0RF L97.919 - Non-pressure chronic ulcer of unspecified part of right lower leg with unspecified severity Coding Level of Care Code Est Pt Level 3 (52550) Diagnoses Ulcer of right lower extremity, unspecified ulcer stage L97.919 Non-pressure ulcer stage: unspecified non-pressure ulcer stage
== END 2023-07-01 14:36 | disposition home or self-care (01) ==
PROVIDERS: PCP Physician Assistant; Visit Provider Surgery Vascular Surgery
DX: L97.919 Non-pressure chronic ulcer of unspecified part of right lower leg with unspecified severity (principal)
CPT/HCPCS: 99213

== ENCOUNTER → 2023-07-06 15:49 | Outpatient (BNVA) | payer OTHER, SELFPAY | PROVIDERS: PCP Physician Assistant; Visit Provider Surgery Vascular Surgery ==

== ENCOUNTER 2023-07-08 15:40 | Outpatient (AMB) | payer OTHER, SELFPAY ==
[2023-07-08 15:32] VITALS: BMI 31.8
--- NOTE | 2023-07-08 15:32 | A.OFFVIS_ITS ---
Intake Vital Signs 07/08/23 15:32 Height 5 ft 7 in Weight 203 lb BMI 31.8 Intake Visit Reasons: 2 day multi wrap follow up Intake Note: 2 day follow up multi layer wrap, pt states feels like its draining on Right LE. Left LE is very swollen, hyperkeratotisis and Right LE has lymphorrea. Accompanied by: Self / Same As Patient Allergies bees Allergy (Intermediate, Uncoded 07/08/23 15:37) Difficulty Breathing HPI 2 day multi wrap follow up HPI Details Patient seen and examined. Reports that she has been doing much better overall. Swelling has decreased. She does not notice as much drainage. She now presents for follow-up regarding multilayered compressive wrap change. [facility] Medical History Varicose veins of right calf Heme positive stool Lymphedema History of MRSA infection Family History Maternal Grandfather Colon cancer Social History Housing: House Alcohol intake: never Patient Tobacco Use Status: Never used Tobacco e-Cigarette/Vaping Use: Never Used service: No Current occupational status: employed Cognitive needs: No Hearing needs: No Vision needs: Yes Review of Systems Const All systems reviewed & are unremarkable except as noted in HPI and below Reports no additional complaints ENT Reports Normal hearing present Card Denies chest pain, Denies chest pain at rest, Denies chest pain with activity and Denies pedal edema Resp Denies cough GI Denies abdominal pain Musc Denies abnormal gait, Denies muscle cramps and Denies radiating pain into limb Skin/Breast Denies skin ulcer and Denies wounds Neuro Reports Normal hearing present and Denies abnormal gait Psych Reports no additional complaints Physical Exam Vital Signs: BMI result Body Mass Index 31.8 Const General: cooperative, healthy appearing and comfortable Orientation/consciousness: oriented to person, oriented to place and oriented to time HEENT Head: Yes normal to inspection Neck Neck: Yes normal visual inspection Carotids: no bruits Chest Chest palpation & inspection: normal inspection of the chest Resp Effort & Inspection: normal respiratory effort and able to speak in complete sentences Auscultation: clear to auscultation bilaterally, no crackles, no rales, no rhonchi and no wheezes Cardio Rate: regular rate Rhythm: regular rhythm Heart sounds: S1 normal heart sound present and S2 normal heart sound present Bruits: no carotid bruits Peripheral pulses: Peripheral pulses 2+ throughout GI Inspection: Yes normal to inspection Skin Other: Right calf ulcer measures 3.5 x 3.5 x 0.1 cm. Overall good granulation base and appears to be healing relatively well. Wounds: no wounds Hair: normal Neuro General: oriented to person, oriented to place and oriented to time Cranial nerves: Yes CN's II-XII intact bilaterally and Yes Normal hearing present Cognition (Neuro): normal cognition Motor exam (neuro): 5/5 motor strength present throughout Extrem Other: venous exam: No significant superficial varicosities or spider telangiectasias, minimal edema General: No clubbing, No cyanosis and No edema Psych Appearance: grossly normal Mental Status: mental status grossly normal Speech and movement: Normal speech and movement present Assessment & Plan Assessment & Plan (1) Ulcer of right leg: Code(s): L97.919 - Non-pressure chronic ulcer of unspecified part of right lower leg with unspecified severity Qualifiers: Non-pressure ulcer stage: unspecified non-pressure ulcer stage Qualified Code(s): L97.919 - Non-pressure chronic ulcer of unspecified part of right lower leg with unspecified severity Plan: In short patient has continued right lower extremity ulcer. Would plan for continued local wound care with foam dressings and a multilayered compression wrap. Would like to space it out to weekly changes once drainage decreases. She will follow up with us on Wednesday. Thank you for allowing us to assist in her care. If there are any questions or concerns please do not hesitate to contact us. The patient had an opportunity to ask questions regarding the treatment plan. All questions were answered. Imaging studies, laboratory studies and physical exam results were discussed and reviewed in detail. No major barriers to understanding were identified. The patient expressed understanding and agreement with the above treatment plan. The patient is aware they should contact our office by phone for worsening of the current condition or the appearance of new symptoms. Thank you for allowing me to participate in the vascular care of this patient. If you have any questions or concerns regarding the treatment for the above condition please do not hesitate to contact me. The office telephone contact is [phone]. This note is constructed using voice recognition software. While every effort has been made to ensure accuracy, diesel engine erector errors may have been included. Thank you for allowing me to participate in the care of your patient. Yours sincerely, Ross Aguilar MD, FACS, R.P.V.I. Coding Level of Care Code Est Pt Level 3 (75326) Diagnoses Ulcer of right lower extremity, unspecified ulcer stage L97.919 Non-pressure ulcer stage: unspecified non-pressure ulcer stage
== END 2023-07-09 11:06 | disposition home or self-care (01) ==
PROVIDERS: PCP Physician Assistant; Visit Provider Surgery Vascular Surgery
DX: L97.919 Non-pressure chronic ulcer of unspecified part of right lower leg with unspecified severity (principal)
CPT/HCPCS: 99213

== ENCOUNTER → 2023-07-08 15:40 | Outpatient (BNVA) | payer OTHER, SELFPAY | PROVIDERS: PCP Physician Assistant; Visit Provider Surgery Vascular Surgery ==

== ENCOUNTER 2023-07-13 15:53 | Outpatient (AMB) | payer OTHER, SELFPAY ==
[2023-07-13 15:54] VITALS: BMI 31.8
--- NOTE | 2023-07-13 15:54 | MHC.OFFVIS ---
Intake Vital Signs 07/13/23 15:54 Height 5 ft 7 in Weight 203 lb BMI 31.8 Intake Visit Reasons: 5 day follow up multi-layer wrap Intake Note: follow up Right LE non-healing wound and lymphedema, using multi-layer wrap, changes twice a week. Accompanied by: Self / Same As Patient Allergies bees Allergy (Intermediate, Uncoded 07/13/23 15:56) Difficulty Breathing HPI 5 day follow up multi-layer wrap HPI Details Very pleasant 32-year-old female presents for routine dressing change for multilayered compressive wrap of the right lower extremity. She reports that she has been doing fairly well with this. Drainage has decreased. She does have some swelling and blistering above the area the compressive wrap. She now presents for routine follow-up. [facility] Medical History Varicose veins of right calf Heme positive stool Lymphedema History of MRSA infection Family History Maternal Grandfather Colon cancer Social History Housing: House Alcohol intake: never Patient Tobacco Use Status: Never used Tobacco e-Cigarette/Vaping Use: Never Used service: No Current occupational status: employed Cognitive needs: No Hearing needs: No Vision needs: Yes Review of Systems Const All systems reviewed & are unremarkable except as noted in HPI and below Reports no additional complaints ENT Reports Normal hearing present Card Denies chest pain, Denies chest pain at rest, Denies chest pain with activity and Denies pedal edema Resp Denies cough GI Denies abdominal pain Musc Denies abnormal gait, Denies muscle cramps and Denies radiating pain into limb Skin/Breast Denies skin ulcer and Denies wounds Neuro Reports Normal hearing present and Denies abnormal gait Psych Reports no additional complaints Physical Exam Vital Signs: BMI result Body Mass Index 31.8 Const General: cooperative, healthy appearing and comfortable Orientation/consciousness: oriented to person, oriented to place and oriented to time HEENT Head: Yes normal to inspection Neck Neck: Yes normal visual inspection Carotids: no bruits Chest Chest palpation & inspection: normal inspection of the chest Resp Effort & Inspection: normal respiratory effort and able to speak in complete sentences Auscultation: clear to auscultation bilaterally, no crackles, no rales, no rhonchi and no wheezes Cardio Rate: regular rate Rhythm: regular rhythm Heart sounds: S1 normal heart sound present and S2 normal heart sound present Bruits: no carotid bruits Peripheral pulses: Peripheral pulses 2+ throughout GI Inspection: Yes normal to inspection Skin Other: Right lower extremity multilayered compressive wrap changed wound overall measures 3.5 x 3 x 0.1 cm. Some fibrinous necrotic material overlying. Wounds: no wounds Hair: normal Neuro General: oriented to person, oriented to place and oriented to time Cranial nerves: Yes CN's II-XII intact bilaterally and Yes Normal hearing present Cognition (Neuro): normal cognition Motor exam (neuro): 5/5 motor strength present throughout Extrem Other: venous exam: No significant superficial varicosities or spider telangiectasias, minimal edema General: No clubbing, No cyanosis and No edema Psych Appearance: grossly normal Mental Status: mental status grossly normal Speech and movement: Normal speech and movement present Assessment & Plan Assessment & Plan (1) Ulcer of right leg: Code(s): L97.919 - Non-pressure chronic ulcer of unspecified part of right lower leg with unspecified severity Qualifiers: Non-pressure ulcer stage: unspecified non-pressure ulcer stage Qualified Code(s): L97.919 - Non-pressure chronic ulcer of unspecified part of right lower leg with unspecified severity Plan: Doing well with multilayered compressive wrap. We have changed it. I have changed underlying dressing to Adaptic with foam. Will schedule for 2 day follow-up. Thank you for allowing us to assist in her care. (2) Lymphedema: Code(s): I89.0 - Lymphedema, not elsewhere classified Plan: Significant swelling of the lower extremities in particular left. She is in the process of getting lymphedema pumps. We did have her measured. We will follow-up with tactile to try to expedite as she does have a fair amount of edema on bilateral lower extremities and she is in particular noticing it more so on the left now. In addition we are waiting Rheumatology evaluation as well. Please note a total of 45 minutes was required with this patient including chart review dressing change and coordination of care Coding Level of Care Code Est Pt Level 4 (39565) Diagnoses Ulcer of right lower extremity, unspecified ulcer stage L97.919 Non-pressure ulcer stage: unspecified non-pressure ulcer stage Lymphedema I89.0
== END 2023-07-14 08:22 | disposition home or self-care (01) ==
PROVIDERS: PCP Physician Assistant; Visit Provider Surgery Vascular Surgery
DX: L97.919 Non-pressure chronic ulcer of unspecified part of right lower leg with unspecified severity (principal); I89.0 Lymphedema, not elsewhere classified
CPT/HCPCS: 99214

== ENCOUNTER → 2023-07-13 15:53 | Outpatient (BNVA) | payer OTHER, SELFPAY | PROVIDERS: PCP Physician Assistant; Visit Provider Surgery Vascular Surgery ==

== ENCOUNTER → 2023-07-20 15:53 | Outpatient (BNVA) | payer OTHER, SELFPAY | PROVIDERS: PCP Physician Assistant; Visit Provider Surgery Vascular Surgery ==

== ENCOUNTER 2023-07-22 11:51 | Outpatient (AMB) | payer OTHER, SELFPAY ==
[2023-07-22 11:52] VITALS: BMI 31.8
--- NOTE | 2023-07-22 11:52 | MHC.OFFVIS ---
Intake Vital Signs 07/22/23 11:52 Height 5 ft 7 in Weight 203 lb BMI 31.8 Intake Visit Reasons: 2 day multi wrap change Intake Note: Pt here for multi wrap Allergies bees Allergy (Intermediate, Uncoded 07/21/23 10:34) Difficulty Breathing HPI 2 day multi wrap change HPI Details Very pleasant 32-year-old female presents for routine follow-up regarding right lower extremity nonhealing ulcer. She has been in a multilayered compressive wrap. In addition she just received her lymphedema pumps yesterday. She reports that she is doing significantly better. She now presents for routine follow-up. [facility] Medical History Varicose veins of right calf Heme positive stool Lymphedema History of MRSA infection Family History Maternal Grandfather Colon cancer Social History Housing: House Alcohol intake: never Patient Tobacco Use Status: Never used Tobacco e-Cigarette/Vaping Use: Never Used service: No Current occupational status: employed Cognitive needs: No Hearing needs: No Vision needs: Yes Review of Systems Const All systems reviewed & are unremarkable except as noted in HPI and below Reports no additional complaints ENT Reports Normal hearing present Card Denies chest pain, Denies chest pain at rest, Denies chest pain with activity and Denies pedal edema Resp Denies cough GI Denies abdominal pain Musc Denies abnormal gait, Denies muscle cramps and Denies radiating pain into limb Skin/Breast Denies skin ulcer and Denies wounds Neuro Reports Normal hearing present and Denies abnormal gait Psych Reports no additional complaints Physical Exam Vital Signs: BMI result Body Mass Index 31.8 Const General: cooperative, healthy appearing and comfortable Orientation/consciousness: oriented to person, oriented to place and oriented to time HEENT Head: Yes normal to inspection Neck Neck: Yes normal visual inspection Carotids: no bruits Chest Chest palpation & inspection: normal inspection of the chest Resp Effort & Inspection: normal respiratory effort and able to speak in complete sentences Auscultation: clear to auscultation bilaterally, no crackles, no rales, no rhonchi and no wheezes Cardio Rate: regular rate Rhythm: regular rhythm Heart sounds: S1 normal heart sound present and S2 normal heart sound present Bruits: no carotid bruits Peripheral pulses: Peripheral pulses 2+ throughout GI Inspection: Yes normal to inspection Skin Other: Right calf wound measures 3.0 by 3.5 x 0.1 cm with fairly good granulation base. No evidence of infection. Wounds: no wounds Hair: normal Neuro General: oriented to person, oriented to place and oriented to time Cranial nerves: Yes CN's II-XII intact bilaterally and Yes Normal hearing present Cognition (Neuro): normal cognition Motor exam (neuro): 5/5 motor strength present throughout Extrem Other: venous exam: No significant superficial varicosities or spider telangiectasias, minimal edema General: No clubbing, No cyanosis and No edema Psych Appearance: grossly normal Mental Status: mental status grossly normal Speech and movement: Normal speech and movement present Assessment & Plan Assessment & Plan (1) Ulcer of right leg: Code(s): L97.919 - Non-pressure chronic ulcer of unspecified part of right lower leg with unspecified severity Qualifiers: Non-pressure ulcer stage: unspecified non-pressure ulcer stage Qualified Code(s): L97.919 - Non-pressure chronic ulcer of unspecified part of right lower leg with unspecified severity Plan: In short patient has nonhealing right leg ulcer. Will continue with multilayered compressive wrap. She will follow up with us in approximately 1 week's time. Should there be no significant decrease in size will consider skin substitute placement. Thank you for allowing us to assist in her care. (2) Edema: Code(s): R60.9 - Edema, unspecified Qualifiers: Edema type: localized Qualified Code(s): R60.0 - Localized edema Plan: Patient has chronic edema. Unclear of the etiology of it. She has been on chronic Lasix usage. I have taken the liberty of ordering a Nephrology consult to better assess the situation in terms of Lasix and if it is appropriate dosing. In addition she does have a rheumatology evaluation pending. She will follow up with us in approximately 1 week's time. Orders: Referrals Nephrology Referral I89.0 - Lymphedema, not elsewhere classified, R60.9 - Edema, unspecified Coding Level of Care Code Est Pt Level 3 (56406) Diagnoses Ulcer of right lower extremity, unspecified ulcer stage L97.919 Non-pressure ulcer stage: unspecified non-pressure ulcer stage Localized edema R60.0 Edema type: localized
== END 2023-07-23 07:46 | disposition home or self-care (01) ==
LOC: HO.HVS 11:51
PROVIDERS: PCP Physician Assistant; Visit Provider Surgery Vascular Surgery
DX: L97.919 Non-pressure chronic ulcer of unspecified part of right lower leg with unspecified severity (principal); R60.0 Localized edema
CPT/HCPCS: 99213

== ENCOUNTER → 2023-07-22 11:51 | Outpatient (BNVA) | payer OTHER, SELFPAY | PROVIDERS: PCP Physician Assistant; Visit Provider Surgery Vascular Surgery ==

== ENCOUNTER → 2023-07-27 13:53 | Outpatient (BNVA) | payer OTHER, SELFPAY | PROVIDERS: PCP Physician Assistant; Visit Provider Surgery Vascular Surgery ==

== ENCOUNTER 2023-08-03 15:51 | Outpatient (AMB) | payer OTHER, SELFPAY ==
--- NOTE | 2023-08-03 15:56 | A.OFFVIS_ITS ---
Intake Vital Signs 3 08/03/23 16:12 Height 5 ft 7 in Weight 203 lb BMI 31.8 Intake Visit Reasons: 1 week follow up wrap change Intake Note: Right LE non healing ulcer w/ Multi layer wrap 1 week change. Pt states she is using compression pumps and swelling has started to decrease. Ulcer has grown a little and has odor today. Measures 3.5 x 3.5/4 cm Accompanied by: Self / Same As Patient Allergies bees Allergy (Intermediate, Uncoded 08/03/23 16:14) Difficulty Breathing HPI 1 week follow up wrap change 2 HPI0 Details Very pleasant 32-year-old female presents for follow-up regarding nonhealing right calf ulceration. She continues to have drainage. She has been using her lymphedema pumps. It appears to be doing significantly better. She now presents for follow-up for compression wrap change. [facility] Medical History Varicose veins of right calf Heme positive stool Lymphedema History of MRSA infection Family History Maternal Grandfather Colon cancer Social History Housing: House Alcohol intake: never Patient Tobacco Use Status: Never used Tobacco e-Cigarette/Vaping Use: Never Used service: No Current occupational status: employed Cognitive needs: No Hearing needs: No Vision needs: Yes Review of Systems Const All systems reviewed & are unremarkable except as noted in HPI and below Reports no additional complaints ENT Reports Normal hearing present Card Denies chest pain, Denies chest pain at rest, Denies chest pain with activity and Denies pedal edema Resp Denies cough GI Denies abdominal pain Musc Denies abnormal gait, Denies muscle cramps and Denies radiating pain into limb Skin/Breast Denies skin ulcer and Denies wounds Neuro Reports Normal hearing present and Denies abnormal gait Psych Reports no additional complaints Physical Exam Vital Signs: BMI result Body Mass Index 31.8 Const General: cooperative, healthy appearing and comfortable Orientation/consciousness: oriented to person, oriented to place and oriented to time HEENT Head: Yes normal to inspection Neck Neck: Yes normal visual inspection Carotids: no bruits Chest Chest palpation & inspection: normal inspection of the chest Resp Effort & Inspection: normal respiratory effort and able to speak in complete sentences Auscultation: clear to auscultation bilaterally, no crackles, no rales, no rhonchi and no wheezes Cardio Rate: regular rate Rhythm: regular rhythm Heart sounds: S1 normal heart sound present and S2 normal heart sound present Bruits: no carotid bruits Peripheral pulses: Peripheral pulses 2+ throughout GI Inspection: Yes normal to inspection Skin Other: Right calf nonhealing ulcer measuring 3.5 x 4 x 0.1 cm. Wounds: no wounds Hair: normal Neuro General: oriented to person, oriented to place and oriented to time Cranial nerves: Yes CN's II-XII intact bilaterally and Yes Normal hearing present Cognition (Neuro): normal cognition Motor exam (neuro): 5/5 motor strength present throughout Extrem Other: venous exam: No significant superficial varicosities or spider telangiectasias, minimal edema General: No clubbing, No cyanosis and No edema Psych Appearance: grossly normal Mental Status: mental status grossly normal Speech and movement: Normal speech and movement present Assessment & Plan Assessment & Plan (1) Ulcer of right leg: Code(s): L97.919 - Non-pressure chronic ulcer of unspecified part of right lower leg with unspecified severity Qualifiers: Non-pressure ulcer stage: unspecified non-pressure ulcer stage Qualified Code(s): L97.919 - Non-pressure chronic ulcer of unspecified part of right lower leg with unspecified severity Plan: In short patient has a chronic nonhealing ulcer of the right calf. She has undergone extensive conservative management including compressive wraps. It has remained nonhealing. She is in need of operative debridement along with skin substitute placement of the right calf. Risks benefits complications of the procedure were discussed in detail with the patient she understood and consented. Will plan for follow-up after. We will schedule for procedure this Wednesday. (2) Lymphedema: Code(s): I89.0 - Lymphedema, not elsewhere classified Plan: Doing well with pumps Coding Level of Care Code Est Pt Level 4 (56016) Diagnoses Ulcer of right lower extremity, unspecified ulcer stage L97.919 Non-pressure ulcer stage: unspecified non-pressure ulcer stage Lymphedema I89.0
[2023-08-03 16:12] VITALS: BMI 31.8
== END 2023-08-03 16:35 | disposition home or self-care (01) ==
LOC: HO.HVS 15:51
PROVIDERS: PCP Physician Assistant; Visit Provider Surgery Vascular Surgery
DX: L97.919 Non-pressure chronic ulcer of unspecified part of right lower leg with unspecified severity (principal); I89.0 Lymphedema, not elsewhere classified
CPT/HCPCS: 99214

== ENCOUNTER → 2023-08-03 15:51 | Outpatient (BNVA) | payer OTHER, SELFPAY | PROVIDERS: PCP Physician Assistant; Visit Provider Surgery Vascular Surgery ==

== ENCOUNTER 2023-08-04 14:35 | Outpatient (AMB) | payer OTHER, SELFPAY ==
[2023-08-04 14:42] VITALS: BP 104/60; PULSE 103; O2SAT 96; BMI 31.8
--- NOTE | 2023-08-04 14:42 | HO.NEPHOV_ITS ---
HPI HPI Comments History of Present Illness Details I had the delight of seeing Tiffanie who is 32 years of age with edema and history of microscopic hematuria. She has had oral aphthous ulcerations last year. Ever since she has been having multitude of issues including rashes or the chest, abdomen, inguinal region as well axilla. She has had pustular lesion as well as swelling of her small joints of fingers of both hands. She has had microscopic hematuria as well as hemoptysis. She has no history of genital ulcers. She feels she has brain fog. She had some eye symptoms which was not very clear in description. She has been having edema and ulcerations on her lower extremities. She has been seen by vascular and is going to undergo skin grafting soon. She has been diagnosed with lymphedema and has been using pumps and diuretics. Her renal functions have been normal. She has no scalp on a lesions. She has no history of miscarriages, pregnancies, hypertension. She has history of anemia and has undergone upper and lower endoscopy and is due to have capsule endoscopy. She has seen Infectious Disease colleagues for numerous skin infections including MRSA. She has history of meningitis as a child but denied any other infections with encapsulated organisms. She is concerned about her medical issues and strongly feels all her symptoms are part of a single diagnosis which has been eluding. She also had nephrolithiasis which has been quiescent lately. [facility] Medical History (Updated 08/04/23 @ 22:45 by Bart Traore MD) Varicose veins of right calf Heme positive stool Lymphedema History of MRSA infection Surgical History (Updated 08/04/23 @ 14:49 by Karen Leach MA) History of shoulder surgery History of endoscopy H/O colonoscopy Family History Maternal Grandfather Colon cancer Social History Housing: House Alcohol intake: never Patient Tobacco Use Status: Never used Tobacco e-Cigarette/Vaping Use: Never Used service: No Current occupational status: employed Cognitive needs: No Hearing needs: No Vision needs: Yes Vital Signs 08/04/23 14:42 Height 5 ft 7 in Weight 203 lb 6 oz BMI 31.8 BP 104/60 Blood Pressure Location Rt brachial Position Sitting Pulse 103 H Pulse Source Pulse Oximeter Pulse Oximetry (%) 96 Oxygen Delivery Method Room Air Physical Exam Vital Signs: Last Vital Signs Pulse 103 H 08/04/23 14:42 BP 104/60 08/04/23 14:42 Pulse Ox 96 08/04/23 14:42 Oxygen Delivery Method Room Air 08/04/23 14:42 BMI result Body Mass Index 31.8 Const General: comfortable and no acute distress Orientation/consciousness: patient oriented x3 HEENT Head: Yes normocephalic Mouth: Normal oral and palatal mucosa present Eyes EOM: EOMs intact bilaterally Neck Neck: Yes supple Resp Auscultation: clear to auscultation bilaterally Cardio Jugular venous distension: no JVD Rate: regular rate GI Palpation (GI): Soft to palpation Auscultation: normal bowel sounds General: Yes no CVA tenderness Back/Spine/Pelvis Back: no CVA tenderness Skin General skin exam: no rashes or lesions noted Neuro General: patient oriented x3 and moves all extremities Extrem Other: Right LE wrapped in bandage Assessment & Plan Assessment & Plan (1) Hematuria: Code(s): R31.9 - Hematuria, unspecified Qualifiers: Hematuria type: unspecified type Qualified Code(s): R31.9 - Hematuria, unspecified (2) Nephrolithiasis: Code(s): N20.0 - Calculus of kidney Plan 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 Her renal functions are normal. She has vascular lesion on the lower extremities needing intervention including skin graft, oral ulcers, joint swellings, anemia, hemoptysis, edema and likely pathergy. I have ordered some work up. She will benefit from an urgent Rheumatology consultation. I did not start her on empiric prednisone. She may benefit from immunosuppression. She could go ahead and have her skin graft over her longstanding lower extremity ulcerative lesion . She could continue current dose of diuretics for now. I shall communicate all these with the bankruptcy law specialist with whom she has a consultation soon. Her case was discussed Dr. Aguilar. Further management is pending evolving data. Answered all questions & follow-up appointment given. Orders: Orders Erythrocyte Sedimentation Rate Today R31.9 - Hematuria, unspecified CRP High Sensitivity Today R31.9 - Hematuria, unspecified Anti DNA DS Antibody Today R31.9 - Hematuria, unspecified Complement C3 1 Week R31.9 - Hematuria, unspecified Complement C4 1 Week R31.9 - Hematuria, unspecified Anti Extractable Nuclear Ag Today R31.9 - Hematuria, unspecified Sjogren's Antibodies Today R31.9 - Hematuria, unspecified ALVERTO Reflex Titer and Pattern Today R31.9 - Hematuria, unspecified Lupus Anticoagulant Panel Today R31.9 - Hematuria, unspecified Complement C3 Today R31.9 - Hematuria, unspecified Complement C4 Today R31.9 - Hematuria, unspecified Protein Creatinine Ratio, Ur Today R31.9 - Hematuria, unspecified Neutrophil Cytoplasma Ab Today R31.9 - Hematuria, unspecified Myeloperoxidase Antibody Today R31.9 - Hematuria, unspecified Proteinase 3 PR3 Antibodies Today R31.9 - Hematuria, unspecified Anti Glomerular Basement Memb Today R31.9 - Hematuria, unspecified Protein Electrophoresis, Serum Today R31.9 - Hematuria, unspecified Scleroderma 70 Antibody Today R31.9 - Hematuria, unspecified [place] 1 Antibody Today R31.9 - Hematuria, unspecified Coding Level of Care Code New Pt Level 4 ([id number]) Diagnoses Hematuria, unspecified type R31.9 Hematuria type: unspecified type Nephrolithiasis N20.0 Results Reviewed Nephrology Results: No Data to Display
== END 2023-08-04 15:43 | disposition home or self-care (01) ==
PROVIDERS: PCP Physician Assistant; Visit Provider Internal Medicine Nephrology
DX: R31.9 Hematuria, unspecified (principal); N20.0 Calculus of kidney
CPT/HCPCS: 99204

== ENCOUNTER → 2023-08-04 14:35 | Outpatient (BNVA) | payer OTHER, SELFPAY | PROVIDERS: PCP Physician Assistant; Visit Provider Internal Medicine Nephrology ==

== ENCOUNTER → 2023-08-10 11:42 | Day surgery (SDC) | payer OTHER, SELFPAY ==
--- NOTE | 2023-08-09 09:33 | HO.ANESPROP2 ---
Documented by User: Barbara Murcia NP 08/09/23 09:37 HPI - Anesthesia Eval Consult details Narrative: 32yo F for Right Debridement Skin on Leg,with skin graft s/p EGD, [place] 05/2023 with MAC PMFSH Active Problems Active Problems: All Active Problems (Updated 08/04/23 @ 22:45 by Bart Traore MD) Nephrolithiasis (Acute) Ulcer of right leg (Acute) Lymphedema (Acute) Varicose veins of right lower extremity with inflammation (Acute) Stye (Acute) MRSA (methicillin resistant Staphylococcus aureus) (Acute) Abscess of finger (Acute) Hematuria (Acute) Skin rash (Acute) Recurrent oral ulcers (Acute) Anemia (Acute) Edema (Acute) Past Medical History Medical History Varicose veins of right calf Heme positive stool Lymphedema History of MRSA infection Family History Family History Maternal Grandfather Colon cancer Surgical History Surgical History History of shoulder surgery History of endoscopy H/O colonoscopy Social History Social History Housing: House Alcohol intake: never Patient Tobacco Use Status: Never used Tobacco e-Cigarette/Vaping Use: Never Used Use of substances other than those prescribed or required for medical reasons: No Are you DNR?: No Advance Directives: No Advance Directives Information Provided: Yes service: No Current occupational status: employed Cognitive needs: No Hearing needs: No Vision needs: Yes Meds Allergies Allergy/AdvReac Type Severity Reaction Status Date / Time bees Allergy Intermediate Difficulty Uncoded 08/10/23 11:57 Breathing Home Medications Medication Instructions Recorded Confirmed Last Taken Type vitamin B complex 1 tab PO DAILY 12/20/22 08/10/23 Unknown History Exam Narrative Narrative: US venous duplex LE BI 06/2023 IMPRESSION: Patent visualized lower extremity venous vasculature without evidence of DVT or reflux. As noted above there are several bilateral venous varicosities that measure from 0.3 to 0.4 cm and do not demonstrate reflux. ECHO 12/2022 Conclusions: - Normal study Assessment and Plan Assessment Anesthesia Assessment: Chart Reviewed Documented by User: Shira Marino MD 08/10/23 12:47 PMFSH Past Medical History Medical History Varicose veins of right calf Heme positive stool Lymphedema History of MRSA infection Family History Family History Maternal Grandfather Colon cancer Surgical History Surgical History History of shoulder surgery History of endoscopy H/O colonoscopy History of Problems with Anesthesia: No Social History Social History Housing: House Alcohol intake: never Patient Tobacco Use Status: Never used Tobacco e-Cigarette/Vaping Use: Never Used Use of substances other than those prescribed or required for medical reasons: No Are you DNR?: No Advance Directives: No Advance Directives Information Provided: Yes service: No Current occupational status: employed Cognitive needs: No Hearing needs: No Vision needs: Yes Meds Allergies Allergy/AdvReac Type Severity Reaction Status Date / Time bees Allergy Intermediate Difficulty Uncoded 08/10/23 11:57 Breathing Home Medications Medication Instructions Recorded Confirmed Last Taken Type vitamin B complex 1 tab PO DAILY 12/20/22 08/10/23 Unknown History Exam Airway Mallampati Class: II TM Dist: >3cm Neck ROM: Full Loose/Missing/Broken Teeth: No Heart: RRR Lungs: CTA Assessment and Plan Assessment Anesthesia Assessment: Anesthesia Plan Discussed Final Anesthetic Review History of Problems with Anesthesia: No NPO: Yes ASA Class: II Final Preanesthetic Review: Meds/Allgs Chart Reviewed, Consent Obtained/Reviewed and Anes Risks/Benef Reviewed Patient Risk: Low Procedure Risk: Low Anesthetic Plan Anesthetic Plan: GA Disposition: Standard PACU
[2023-08-10] VITALS (8 sets, daily range): BP systolic 102–120; BP diastolic 44–72; PULSE 74–93; RESP 12–18; TEMP 36.1–36.6; O2SAT 94–99; BMI 33.0
[2023-08-10 12:29] LABS: UPreg QC Valid YES; Urine Pregnancy NEGATIVE (NEGATIVE)
[2023-08-10] MEDS: Lactated Ringers 1,000 ML 100 ML IVCONT (12:45)
--- NOTE | 2023-08-10 13:07 | MHC.SHP ---
Pre-Procedural Eval Section A - 24 Hr Update-Section A only Date of Service: 08/10/23 The patient is an INPATIENT: No Changes since office visit: Yes Patient answered all questions The patient has been examined within 24 hours of the surgical procedure. The History & Physical has been completed within 30 days and I have reviewed it.: Yes Section B - Complete if H&P > 30 days Chief Complaint: Non-pressure chronic ulcer of unspecified part of Allergies: Allergies Allergy/AdvReac Type Severity Reaction Status Date / Time bees Allergy Intermediate Difficulty Uncoded 08/10/23 11:57 Breathing Plan I have reviewed the history and physical and performed a pertinent physical examination on my patient. No changes have occurred unless specified. Time Spent With Patient Time: Total time managing care of this patient today ____ minutes.
--- NOTE | 2023-08-10 14:14 | W.PM.OPN ---
Operative Note Operative Note Date of Service: 08/10/23 Narrative: Operative note by [facility] Preoperative diagnosis: Nonhealing right calf ulceration Postoperative diagnosis: Same Procedure:1. Excisional debridement of left calf ulcer into muscle 2. Placement of skin substitute(Keresis) Surgeon:Ross Aguilar M.D. Contact Worker Lithography: Soila Anesthesia: General Specimens: None Drains: None Estimated blood loss: Minimal Indications: Very pleasant 32-year-old female with a history of nonhealing lower extremity ulcers now presents for debridement and skin substitute placement. The patient has signed the informed consent after reviewing risks, complications, benefits, and alternatives previously discussed with the patient. The patient was given the opportunity to ask any additional questions or voice any concerns. All questions were answered to the patient's satisfaction. Procedure in detail: Patient was brought to the operating room prior to which a time-out was called for patient identification site verification. Right calf was prepped and draped in standard surgical fashion. We 1st debrided the ulcer using a 15 blade pickups and Metzenbaum scissors. The original wound measured 3 x 3.5 x 0.1 cm. There was a fair amount fibrinous necrotic material. We debrided into muscle. Bleeding was controlled with electrocautery. This was then thoroughly irrigated out. Post debridement measurement was 3.2 x 3.6 x 0.3 cm. Once this was accomplished we then trimmed a piece of Kerecis skin substitute. This was tacked down with 3-0 Polysorb suture. Adaptic and a sterile dressing along with a multilayered compressive wrap dressing was placed. At the end the case sponge instrument counts were correct. Tape patient tolerated the procedure well. Patient was brought back to recovery with stable vitals. This note is constructed using voice recognition software. While every effort has been made to ensure accuracy, mechanical project engineer errors may have been included. Thank you for allowing me to participate in the care of your patient. Yours sincerely, Rsos Aguilar MD, FACS, R.P.V.I.
== END | disposition home or self-care (01) ==
PROVIDERS: Nurse Practitioner; Visit Provider Surgery Vascular Surgery
PROC: (CPT 15271; principal; 2023-08-10 13:00)
DX: L97.212 Non-pressure chronic ulcer of right calf with fat layer exposed (principal); Z86.14 Personal history of Methicillin resistant Staphylococcus aureus infection; I89.0 Lymphedema, not elsewhere classified; I83.11 Varicose veins of right lower extremity with inflammation; Z79.899 Other long term (current) drug therapy
CPT/HCPCS: 15271; 11043; 81025; J0690; J1100; J2250; J2405; J2704; J3010; Q4158

== ENCOUNTER → 2023-08-10 11:42 | Outpatient (BNV) | payer OTHER, SELFPAY | PROVIDERS: Visit Provider Surgery Vascular Surgery | DX: L97.919 Non-pressure chronic ulcer of unspecified part of right lower leg with unspecified severity (principal) | CPT/HCPCS: 11043; 15271 ==

== ENCOUNTER 2023-08-12 15:09 | Outpatient (AMB) | payer OTHER, SELFPAY ==
--- NOTE | 2023-08-12 15:16 | MHC.OFFVIS ---
Intake Intake Visit Reasons: 3 day followup skin subst surg 08/09/2023 Intake Note: 3 day follow up skin subt on Right pretibial ulcer. Bilateral LE swelling. Does have redness around debrided area a a small lump near wound. Allergies bees Allergy (Intermediate, Uncoded 08/12/23 15:17) Difficulty Breathing HPI 3 day followup skin subst surg 08/09/2023 HPI Details Very pleasant 32-year-old female presents for postoperative dressing change. She was taken to the operating room on Wednesday and underwent debridement with skin substitute placement. Has been doing relatively well postoperatively. She did have some drainage from the dressing. She now presents for multi layer wrap change. Of note she does have a rheumatology appointment for tomorrow. [facility] Medical History Varicose veins of right calf Heme positive stool Lymphedema History of MRSA infection Surgical History History of shoulder surgery History of endoscopy H/O colonoscopy Family History Maternal Grandfather Colon cancer Social History Housing: House Alcohol intake: never Patient Tobacco Use Status: Never used Tobacco e-Cigarette/Vaping Use: Never Used service: No Current occupational status: employed Cognitive needs: No Hearing needs: No Vision needs: Yes Review of Systems Const All systems reviewed & are unremarkable except as noted in HPI and below Reports no additional complaints ENT Reports Normal hearing present Card Denies chest pain, Denies chest pain at rest, Denies chest pain with activity and Denies pedal edema Resp Denies cough GI Denies abdominal pain Musc Denies abnormal gait, Denies muscle cramps and Denies radiating pain into limb Skin/Breast Denies skin ulcer and Denies wounds Neuro Reports Normal hearing present and Denies abnormal gait Psych Reports no additional complaints Physical Exam Const General: cooperative, healthy appearing and comfortable Orientation/consciousness: oriented to person, oriented to place and oriented to time HEENT Head: Yes normal to inspection Neck Neck: Yes normal visual inspection Carotids: no bruits Chest Chest palpation & inspection: normal inspection of the chest Resp Effort & Inspection: normal respiratory effort and able to speak in complete sentences Auscultation: clear to auscultation bilaterally, no crackles, no rales, no rhonchi and no wheezes Cardio Rate: regular rate Rhythm: regular rhythm Heart sounds: S1 normal heart sound present and S2 normal heart sound present Bruits: no carotid bruits Peripheral pulses: Peripheral pulses 2+ throughout GI Inspection: Yes normal to inspection Skin Other: Wound measures 3.5 x 3 cm. Excellent take of skin graft. There is some mild surrounding erythema from there. Wounds: no wounds Hair: normal Neuro General: oriented to person, oriented to place and oriented to time Cranial nerves: Yes CN's II-XII intact bilaterally and Yes Normal hearing present Cognition (Neuro): normal cognition Motor exam (neuro): 5/5 motor strength present throughout Extrem Other: venous exam: No significant superficial varicosities or spider telangiectasias, minimal edema General: No clubbing, No cyanosis and No edema Psych Appearance: grossly normal Mental Status: mental status grossly normal Speech and movement: Normal speech and movement present Assessment & Plan Assessment & Plan (1) Ulcer of right leg: Code(s): L97.919 - Non-pressure chronic ulcer of unspecified part of right lower leg with unspecified severity Qualifiers: Non-pressure ulcer stage: unspecified non-pressure ulcer stage Qualified Code(s): L97.919 - Non-pressure chronic ulcer of unspecified part of right lower leg with unspecified severity Plan: In short patient has done extremely well with right lower extremity debridement and artificial skin. Will continue with multilayered wrap. Will start her on p.o. antibiotics to treat the surrounding cellulitis. She does have follow-up with Rheumatology tomorrow which may provide some more insight into what is going on with her. She may benefit from systemic steroids as well. She will follow up with us next week on Wednesday for routine dressing change. Thank you for allowing us to assist in her care. If there are any questions or concerns please do not hesitate to contact us. Medications: New cephalexin 500 mg PO Q12H 20 caps 0RF L97.919 - Non-pressure chronic ulcer of unspecified part of right lower leg with unspecified severity Coding Level of Care Code Est Pt Level 4 (57669) Diagnoses Ulcer of right lower extremity, unspecified ulcer stage L97.919 Non-pressure ulcer stage: unspecified non-pressure ulcer stage
== END 2023-08-12 16:08 | disposition home or self-care (01) ==
LOC: HO.HVS 15:09
PROVIDERS: PCP Physician Assistant; Visit Provider Surgery Vascular Surgery
DX: L97.919 Non-pressure chronic ulcer of unspecified part of right lower leg with unspecified severity (principal)
CPT/HCPCS: 99214

== ENCOUNTER → 2023-08-12 15:09 | Outpatient (BNVA) | payer OTHER, SELFPAY | PROVIDERS: PCP Physician Assistant; Visit Provider Surgery Vascular Surgery ==

== ENCOUNTER 2023-08-13 08:48 | Outpatient (AMB) | payer OTHER, SELFPAY ==
--- NOTE | 2023-08-13 08:52 | A.OFFVIS_ITS ---
Intake Vital Signs 3 08/13/23 08:53 Height 5 ft 7 in Weight 202 lb 6.15 oz BMI 31.7 BP 142/70 H Blood Pressure Location Rt brachial Position Sitting Pulse 114 H Pulse Source Pulse Oximeter Temp 97.6 F Temp Source Skin Pulse Oximetry (%) 98 Oxygen Delivery Method Room Air Intake Visit Reasons: Lymphedema Intake Note: New pt presents for consult. Pt has swelling in bilateral LE and also swollen lymph nodes throughout her body w/ swelling. Aluminum Siding Installer Required: No Accompanied by: Self / Same As Patient Allergies bees Allergy (Intermediate, Uncoded 08/13/23 08:56) Difficulty Breathing Medication List - Last Reconciled 08/13/23 by Juanita Huang MD cephalexin 500 mg PO Q12H chlorhexidine gluconate 4% 1 appl topical .3 x week 30 doses esomeprazole magnesium 20 mg PO DAILY ferrous sulfate (iron) 325 mg PO DAILY 30 days furosemide 80 mg (2 x 40 mg) PO DAILY 30 days vitamin B complex 1 tab PO DAILY HPI HPI Comments 2 History of Present Illness0 Details This is a 32-year-old female who presents for evaluation of multiple symptoms. She stated that as an infant 2-month-old she was admitted to the hospital with meningitis, she was in the hospital for more than a month and got discharged. She stated that throughout her childhood, whenever she would have any cut on her skin she would end up with a bacterial infection that required antibiotics. She was doing fairly well until September of last year when she developed severe tongue pain and burning. She went to urgent care and was treated with antifungals for thrush. The treatment did not help, patient could not eat and lost 20 lb in 2 months. After 2 months the oral symptoms improved. She lost plenty of hair and now is wearing hair extensions. Starting December she started to have significant pain and swelling of her lower extremities. She would have skin swelling and she would get blisters on her feet. Some of the blisters get infected and they need to be drained and treated with antibiotics. She had 1 blister on the medial aspect of her right ankle, that blister kept getting bigger and bigger. It was measuring 3.5 x 3.5 cm. She was evaluated by vascular surgery and had a skin graft yesterday. She has generalized swelling and increased fluid retention of her lower extremities. She has been wearing compression stockings and using diuretics with some improvement. Also of note patient was found to have hematuria and blood in her stool, she had an endoscopy and colonoscopy which showed mild esophagitis and mild gastritis. Patient denied history of DVT/PE. She never attempted . 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 Cognitive needs: No Hearing needs: No Vision needs: Yes Female Reproductive History Menstrual Total pregnancies: 0 Review of Systems Const Reports weight loss Eyes Reports no additional complaints ENT Reports dental pain, Reports mouth lesions, Reports mouth pain and Reports odynophagia GI Reports odynophagia Musc Denies arthralgias and Reports joint swelling Skin/Breast Reports dry skin, Reports alopecia, Reports erythema, Reports skin swelling, Reports skin ulcer and Reports wounds Physical Exam Vital Signs: Last Vital Signs Temp 97.6 F 08/13/23 08:53 Pulse 114 H 08/13/23 08:53 BP 142/70 H 08/13/23 08:53 Pulse Ox 98 08/13/23 08:53 Oxygen Delivery Method Room Air 08/13/23 08:53 BMI result Body Mass Index 31.7 Const General: cooperative, healthy appearing and comfortable Nutritional Appearance: obese Orientation/consciousness: patient oriented x3 Limitations: no limitations HEENT Other: Beefy red discoloration of her tongue no brisa ulcers Dental caries Head: Yes normocephalic and Yes atraumatic Mouth: moist mucous membranes Resp Effort & Inspection: normal respiratory effort and able to speak in complete sentences Auscultation: clear to auscultation bilaterally Cardio Rate: regular rate Rhythm: regular rhythm Skin Other: Diffuse skin swelling especially of lower extremity, skin is somewhat indurated but not thickened Clinical picture not consistent with scleroderma Few areas of old wounds that have healed. Shotty cervical and axillary lymph nodes Neuro General: patient oriented x3 Extrem Other: No active synovitis Normal nailfold capillaroscopy Assessment & Plan Assessment & Plan (1) Lymphedema: Code(s): I89.0 - Lymphedema, not elsewhere classified Plan: This is a 32-year-old female presents for evaluation of 1 year history of diffuse skin swelling, skin blisters and multiple wounds, oral ulcers, hair loss, anemia. Will order comprehensive serology to screen for underlying autoimmune rheumatic disease. Follow-up in 4 weeks Advised patient to seek an urgent Dermatology evaluation. (2) Ulcer of right leg: Code(s): L97.919 - Non-pressure chronic ulcer of unspecified part of right lower leg with unspecified severity Qualifiers: Non-pressure ulcer stage: unspecified non-pressure ulcer stage Qualified Code(s): L97.919 - Non-pressure chronic ulcer of unspecified part of right lower leg with unspecified severity (3) Skin rash: Code(s): R21 - Rash and other nonspecific skin eruption Plan I spent 63 minutes reviewing patient's chart, evaluating patient, ordering diagnostic workup, counseling patient and documenting in the chart Orders: Orders 2 Cyclic Citrullinated Peptide Today I89.0 - Lymphedema, not elsewhere classified, M25.50 - Pain in unspecified joint Hepatitis A,B,C Profile Today Z11.59 - Encounter for screening for other viral diseases C Reactive Protein Today M32.9 - Systemic lupus erythematosus, unspecified Beta-2 Glycoprotein Antibody Today D68.61 - Antiphospholipid syndrome Cardiolipin Antibodies Today D68.61 - Antiphospholipid syndrome HLA B51 Behcet's Disease Today L97.919 - Non-pressure chronic ulcer of unspecified part of right lower leg with unspecified severity Immunofixation Pnl, Serum Today I89.0 - Lymphedema, not elsewhere classified T Spot TB Today Z11.7 - Encounter for testing for latent tuberculosis infection DNA Double Stranded-Crithidia Today M32.9 - Systemic lupus erythematosus, unspecified HIV Ab/Ag Today Z11.59 - Encounter for screening for other viral diseases UA w Microscopic Today R31.9 - Hematuria, unspecified Scleroderma 12 Panel Today M34.9 - Systemic sclerosis, unspecified Creatine Kinase Total Today M25.50 - Pain in unspecified joint Coding Level of Care Code New Pt Level 5 (88130) Diagnoses Lymphedema I89.0 Ulcer of right lower extremity, unspecified ulcer stage L97.919 Non-pressure ulcer stage: unspecified non-pressure ulcer stage Skin rash R21
[2023-08-13 08:53] VITALS: BP 142/70; PULSE 114; TEMP 36.4; O2SAT 98; BMI 31.7
== END 2023-08-13 09:50 | disposition home or self-care (01) ==
PROVIDERS: PCP Physician Assistant; Visit Provider Student in an Organized Health Care Education/Training Program
DX: I89.0 Lymphedema, not elsewhere classified (principal); L97.919 Non-pressure chronic ulcer of unspecified part of right lower leg with unspecified severity; R21 Rash and other nonspecific skin eruption
CPT/HCPCS: 99205

== ENCOUNTER → 2023-08-13 08:48 | Outpatient (BNVA) | payer OTHER, SELFPAY | PROVIDERS: PCP Physician Assistant; Visit Provider Student in an Organized Health Care Education/Training Program | DX: L97.919 Non-pressure chronic ulcer of unspecified part of right lower leg with unspecified severity (principal) ==

== ENCOUNTER 2023-08-18 09:14 | Outpatient (AMB) | payer OTHER, SELFPAY ==
[2023-08-18 09:19] VITALS: BMI 31.6
--- NOTE | 2023-08-18 09:19 | A.OFFVIS_ITS ---
Intake Vital Signs 08/18/23 09:19 Height 5 ft 7 in Weight 202 lb BMI 31.6 Intake Visit Reasons: 1 week follow up dressing change skin sub Intake Note: 1 week follow up Right LE dressing Allergies bees Allergy (Intermediate, Uncoded 08/18/23 09:28) Difficulty Breathing HPI 1 week follow up dressing change skin sub HPI Details Very pleasant 32-year-old female who presents for follow-up regarding nonhealing ulcer of the right lower extremity. She had undergone debridement and artificial skin placement. She now presents with Rheumatology follow-up. She has had no other interval issues. Continues to wear compressive wrap and does note that drainage is saturating through dressing. 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 Cognitive needs: No Hearing needs: No Vision needs: Yes Review of Systems Const All systems reviewed & are unremarkable except as noted in HPI and below Reports no additional complaints ENT Reports Normal hearing present Card Denies chest pain, Denies chest pain at rest, Denies chest pain with activity and Denies pedal edema Resp Denies cough GI Denies abdominal pain Musc Denies abnormal gait, Denies muscle cramps and Denies radiating pain into limb Skin/Breast Denies skin ulcer and Denies wounds Neuro Reports Normal hearing present and Denies abnormal gait Psych Reports no additional complaints Physical Exam Vital Signs: BMI result Body Mass Index 31.6 Const General: cooperative, healthy appearing and comfortable Orientation/consciousness: oriented to person, oriented to place and oriented to time HEENT Head: Yes normal to inspection Neck Neck: Yes normal visual inspection Carotids: no bruits Chest Chest palpation & inspection: normal inspection of the chest Resp Effort & Inspection: normal respiratory effort and able to speak in complete sentences Auscultation: clear to auscultation bilaterally, no crackles, no rales, no rhon chi and no wheezes Cardio Rate: regular rate Rhythm: regular rhythm Heart sounds: S1 normal heart sound present and S2 normal heart sound present Bruits: no carotid bruits Peripheral pulses: Peripheral pulses 2+ throughout GI Inspection: Yes normal to inspection Skin Other: Right lower extremity calf ulcer measures 3.5 x 3 x 0.1 cm. Wounds: no wounds Hair: normal Neuro General: oriented to person, oriented to place and oriented to time Cranial nerves: Yes CN's II-XII intact bilaterally and Yes Normal hearing present Cognition (Neuro): normal cognition Motor exam (neuro): 5/5 motor strength present throughout Extrem Other: venous exam: No significant superficial varicosities or spider telangie ctasias, minimal edema General: No clubbing, No cyanosis and No edema Psych Appearance: grossly normal Mental Status: mental status grossly normal Speech and movement: Normal speech and movement present Assessment & Plan Assessment & Plan (1) Ulcer of right leg: Code(s): L97.919 - Non-pressure chronic ulcer of unspecified part of right lower leg with unspecified severity Qualifiers: Non-pressure ulcer stage: unspecified non-pressure ulcer stage Qualified Code(s): L97.919 - Non-pressure chronic ulcer of unspecified part of right lower leg with unspecified severity Plan: In short patient appears to be doing relatively well with that ulcer on the right calf. It is filling in slow to heal. At the current time edema seems to be better controlled. She is doing better with lymphedema pumps. She did have a rheumatology evaluation where testing has been ordered. She will follow up with us in approximately a week's time for dressing change in [address] Fish-up. (2) Lymphedema: Code(s): I89.0 - Lymphedema, not elsewhere classified Plan: Has been using lymphedema pumps in appears to be helping nicely. Thank you for allowing us to assist in her care. If there are any questions or concerns please do not hesitate to contact us. Coding Level of Care Code Est Pt Level 4 (14493) Diagnoses Ulcer of right lower extremity, unspecified ulcer stage L97.919 Non-pressure ulcer stage: unspecified non-pressure ulcer stage Lymphedema I89.0
== END 2023-08-18 09:53 | disposition home or self-care (01) ==
PROVIDERS: PCP Physician Assistant; Visit Provider Surgery Vascular Surgery
DX: L97.219 Non-pressure chronic ulcer of right calf with unspecified severity (principal); I89.0 Lymphedema, not elsewhere classified
CPT/HCPCS: 99213

== ENCOUNTER → 2023-08-18 09:14 | Outpatient (BNVA) | payer OTHER, SELFPAY | PROVIDERS: PCP Physician Assistant; Visit Provider Surgery Vascular Surgery ==

== ENCOUNTER → 2023-08-25 16:12 | Outpatient (BNVA) | payer OTHER, SELFPAY | PROVIDERS: PCP Physician Assistant; Visit Provider Surgery Vascular Surgery ==

== ENCOUNTER 2023-09-02 15:21 | Outpatient (AMB) | payer OTHER, SELFPAY ==
[2023-09-02 15:38] VITALS: BMI 31.6
--- NOTE | 2023-09-02 15:38 | A.OFFVIS_ITS ---
Intake Vital Signs 09/02/23 15:38 Height 5 ft 7 in Weight 202 lb BMI 31.6 Intake Visit Reasons: 1 week follow up multi layer wrap change Intake Note: 1 week follow up Right LE ulcer multi-wrap change, of note, she spilled diet coke on her wrap and had to unwrap her leg, so today her leg is very swollen and has heavy drainage. Accompanied by: Self / Same As Patient Allergies bees Allergy (Intermediate, Uncoded 09/02/23 15:46) Difficulty Breathing HPI 1 week follow up multi layer wrap change HPI Details Very pleasant 32-year-old female presents for routine follow-up for nonhealing right calf ulcer. She has been on a compressive wrap and appears to be doing relatively well with that. She did have to take off the wrap yesterday due to spilling a drink on that leg. She now presents for routine follow-up. 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 Cognitive needs: No Hearing needs: No Vision needs: Yes Review of Systems Const All systems reviewed & are unremarkable except as noted in HPI and below Reports no additional complaints ENT Reports Normal hearing present Card Denies chest pain, Denies chest pain at rest, Denies chest pain with activity and Denies pedal edema Resp Denies cough GI Denies abdominal pain Musc Denies abnormal gait, Denies muscle cramps and Denies radiating pain into limb Skin/Breast Denies skin ulcer and Denies wounds Neuro Reports Normal hearing present and Denies abnormal gait Psych Reports no additional complaints Physical Exam Vital Signs: BMI result Body Mass Index 31.6 Const General: cooperative, healthy appearing and comfortable Orientation/consciousness: oriented to person, oriented to place and oriented to time HEENT Head: Yes normal to inspection Neck Neck: Yes normal visual inspection Carotids: no bruits Chest Chest palpation & inspection: normal inspection of the chest Resp Effort & Inspection: normal respiratory effort and able to speak in complete sentences Auscultation: clear to auscultation bilaterally, no crackles, no rales, no rhonchi and no wheezes Cardio Rate: regular rate Rhythm: regular rhythm Heart sounds: S1 normal heart sound present and S2 normal heart sound present Bruits: no carotid bruits Peripheral pulses: Peripheral pulses 2+ throughout GI Inspection: Yes normal to inspection Skin Other: Right calf measures 3 x 3.5 cm - good granulation bed Wounds: no wounds Hair: normal Neuro General: oriented to person, oriented to place and oriented to time Cranial nerves: Yes CN's II-XII intact bilaterally and Yes Normal hearing present Cognition (Neuro): normal cognition Motor exam (neuro): 5/5 motor strength present throughout Extrem Other: venous exam: No significant superficial varicosities or spider telangiectasias, minimal edema General: No clubbing, No cyanosis and No edema Psych Appearance: grossly normal Mental Status: mental status grossly normal Speech and movement: Normal speech and movement present Assessment & Plan Assessment & Plan (1) Ulcer of right leg: Code(s): L97.919 - Non-pressure chronic ulcer of unspecified part of right lower leg with unspecified severity Qualifiers: Non-pressure ulcer stage: unspecified non-pressure ulcer stage Qualified Code(s): L97.919 - Non-pressure chronic ulcer of unspecified part of right lower leg with unspecified severity Plan: In short patient has nonhealing ulcer of the right leg. Will continue with compressive wraps. She is developed these oral ulcers along with ulcers throughout her body. She continues to be in a fair amount of discomfort. I do think that an assessment by Rheumatology is imperative here. We have encouraged her to get her labs. In addition I have ordered a trial of a Medrol Dosepak. She will follow up with us in approximately 1 week's for routine dressing change. Thank you for allowing us to assist in her care. Medications: New methylprednisolone (Medrol (Cj)) PO PER PKG DIR for 6 days 21 ea 0RF Coding Level of Care Code Est Pt Level 3 (69362) Diagnoses Ulcer of right lower extremity, unspecified ulcer stage L97.919 Non-pressure ulcer stage: unspecified non-pressure ulcer stage
== END 2023-09-02 16:15 | disposition home or self-care (01) ==
PROVIDERS: PCP Physician Assistant; Visit Provider Surgery Vascular Surgery
DX: L97.919 Non-pressure chronic ulcer of unspecified part of right lower leg with unspecified severity (principal)
CPT/HCPCS: 99213

== ENCOUNTER → 2023-09-02 15:21 | Outpatient (BNVA) | payer OTHER, SELFPAY | PROVIDERS: PCP Physician Assistant; Visit Provider Surgery Vascular Surgery ==

== ENCOUNTER 2023-09-09 15:23 | Outpatient (AMB) | payer OTHER, SELFPAY ==
[2023-09-09 15:25] VITALS: BMI 31.6
--- NOTE | 2023-09-09 15:25 | MHC.OFFVIS ---
Intake Vital Signs 09/09/23 15:25 Height 5 ft 7 in Weight 202 lb BMI 31.6 Intake Visit Reasons: 1 week follow up wrap change Intake Note: 1 week follow up wrap change for Right LE ulcer, drainage was through all 3 layers and foam dressing. States Rx of Steroids was not filled yet by pharmacy. 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 Allergies bees Allergy (Intermediate, Uncoded 09/09/23 15:31) Difficulty Breathing HPI 1 week follow up wrap change HPI Details Very pleasant 32-year-old female presents for follow-up regarding nonhealing right calf ulcer. It has been doing well in a compressive wrap. We used barrier cream last week and unfortunately it seems to have seeped out of the dressing. In addition she has been quite active at work and has been ambulatory for the last 3 days working late hours 21:00. She now presents for follow-up. 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 Cognitive needs: No Hearing needs: No Vision needs: Yes Review of Systems Const All systems reviewed & are unremarkable except as noted in HPI and below Reports no additional complaints ENT Reports Normal hearing present Card Denies chest pain, Denies chest pain at rest, Denies chest pain with activity and Denies pedal edema Resp Denies cough GI Denies abdominal pain Musc Denies abnormal gait, Denies muscle cramps and Denies radiating pain into limb Skin/Breast Denies skin ulcer and Denies wounds Neuro Reports Normal hearing present and Denies abnormal gait Psych Reports no additional complaints Physical Exam Vital Signs: BMI result Body Mass Index 31.6 Const General: cooperative, healthy appearing and comfortable Orientation/consciousness: oriented to person, oriented to place and oriented to time HEENT Head: Yes normal to inspection Neck Neck: Yes normal visual inspection Carotids: no bruits Chest Chest palpation & inspection: normal inspection of the chest Resp Effort & Inspection: normal respiratory effort and able to speak in complete sentences Auscultation: clear to auscultation bilaterally, no crackles, no rales, no rhonchi and no wheezes Cardio Rate: regular rate Rhythm: regular rhythm Heart sounds: S1 normal heart sound present and S2 normal heart sound present Bruits: no carotid bruits Peripheral pulses: Peripheral pulses 2+ throughout GI Inspection: Yes normal to inspection Skin Other: Right leg wound measures 3.5 x 3 cm. Wounds: no wounds Hair: normal Neuro General: oriented to person, oriented to place and oriented to time Cranial nerves: Yes CN's II-XII intact bilaterally and Yes Normal hearing present Cognition (Neuro): normal cognition Motor exam (neuro): 5/5 motor strength present throughout Extrem Other: venous exam: No significant superficial varicosities or spider telangiectasias, minimal edema General: No clubbing, No cyanosis and No edema Psych Appearance: grossly normal Mental Status: mental status grossly normal Speech and movement: Normal speech and movement present Assessment & Plan Assessment & Plan (1) Ulcer of right leg: Code(s): L97.919 - Non-pressure chronic ulcer of unspecified part of right lower leg with unspecified severity Qualifiers: Non-pressure ulcer stage: unspecified non-pressure ulcer stage Qualified Code(s): L97.919 - Non-pressure chronic ulcer of unspecified part of right lower leg with unspecified severity Plan: In short patient has nonhealing right lower extremity ulcer. We will switch back to a compressive wrap with underlying Adaptic and foam. I have represcribed a trial of steroids as she did not receive her last prescription. She will follow up with us in approximately 1 week's time. Thank you for allowing us to assist in her care. If there are any questions or concerns please do not hesitate to contact us Medications: New prednisone PO PER PKG DIR 21 ea 0RF Coding Level of Care Code Est Pt Level 3 (65310) Diagnoses Ulcer of right lower extremity, unspecified ulcer stage L97.919 Non-pressure ulcer stage: unspecified non-pressure ulcer stage
== END 2023-09-09 16:06 | disposition home or self-care (01) ==
PROVIDERS: PCP Physician Assistant; Visit Provider Surgery Vascular Surgery
DX: L97.919 Non-pressure chronic ulcer of unspecified part of right lower leg with unspecified severity (principal)
CPT/HCPCS: 99213

== ENCOUNTER → 2023-09-09 15:23 | Outpatient (BNVA) | payer OTHER, SELFPAY | PROVIDERS: PCP Physician Assistant; Visit Provider Surgery Vascular Surgery ==

== ENCOUNTER 2023-09-15 10:06 | Outpatient (REF) | payer OTHER, SELFPAY ==
[2023-09-15 11:50] LABS: C Reactive Protein 2.66 mg/dL (< or = 0.50)
[2023-09-15 12:14] LABS: HBS Num1 6.18 mIU/mL (0-7.99); HBc Num1 0.15 S/CO (0.00-0.79); HBsAGNum1 0.37 S/CO (0.00-0.99); Hepatitis A Antibody IgM 0.23 Index (0-0.79); Hepatitis B Core Antibody Nonreactive (Nonreactive); Hepatitis B Surface Antigen Negative (Negative); ~Hepatitis A Antibody IgM Nonreactive (Nonreactive); ~Hepatitis B Surface Antibody NONREACTIVE (Nonreactive); ~Hepatitis C Antibody Nonreactive (Nonreactive)
[2023-09-15 14:07] LABS: Appearance Urine Cloudy; Color Urine Yellow; Glucose Urine UA Negative (Negative); Leukocyte Esterase Urine Negative (Negative); Nitrite Urine Negative (Negative); PH 5.5 (5.0-9.0); Specific Gravity - Urine >= 1.030 (1.005-1.025); UMIC TRIGGER UA YES; Urine Blood Negative (Negative); Urine Ketones Negative (Negative); Urine Protein 100 (2+) mg/dL (Neg-Trace)
[2023-09-15 14:20] LABS: Bacteria Urine 4+ (None Seen); Hyaline Casts Urine 0-2 /LPF (0-2); RBC Urine 0-2 /HPF (0-2); Squamous Epithelial Cell Urine >20 /HPF (0-2)
[2023-09-16 19:14] LABS: Cardiolipin IgG Ab <2.0 GPL-U/mL; Cardiolipin IgM Ab <2.0 MPL-U/mL
[2023-09-17 15:33] LABS: Cyclic Citrullinated Peptide <16 UNITS
[2023-09-18 06:14] LABS: Beta-2 Glycoprotein IgA <2.0 U/mL (<20.0); Beta-2 Glycoprotein IgG <2.0 U/mL (<20.0); Beta-2 Glycoprotein IgM <2.0 U/mL (<20.0)
[2023-09-18 08:28] LABS: TS Negative Control Passed; TS Panel A 0; TS Panel B 0; TS Positive Control Passed; TSpotTB Negative (Negative)
[2023-09-20 13:24] LABS: IgA 184 mg/dL (47-310); IgG 1350 mg/dL (600-1640); IgM 236 mg/dL (50-300)
[2023-09-21 06:52] LABS: DNAds, Crithidia Antibody Negative (Negative)
[2023-09-23 08:04] LABS: HLA B51 Comments See Comments; HLA B51 Method PCR SSOP
[2023-09-27 19:29] LABS: Centromere Protein A Ab <11 SI (<11); Centromere Protein B Ab <11 SI (<11); Fibrillarin Ab <11 SI (<11); PM SCL 100 Ab <11 SI (<11); PM SCL 75 Ab <11 SI (<11); RNA Polymerase III RP11 Ab <11 SI (<11); RNA Polymerase III RP155 Ab <11 SI (<11); SCL-70 Extractable Nuclear Ab <11 SI (<11); Th-To Ab <11 SI (<11); U1 SNRNP RNP 70KD <11 SI (<11); U1 SNRNP RNP A <11 SI (<11); U1 SNRNP RNP C <11 SI (<11)
== END 2023-09-15 10:07 | disposition home or self-care (01) ==
LOC: HO.LAB 10:06
PROVIDERS: Absent Provider Internal Medicine Nephrology; PCP Physician Assistant; Visit Provider Student in an Organized Health Care Education/Training Program
DX: D68.61 Antiphospholipid syndrome (principal); M25.50 Pain in unspecified joint; I89.0 Lymphedema, not elsewhere classified; L97.919 Non-pressure chronic ulcer of unspecified part of right lower leg with unspecified severity; M32.9 Systemic lupus erythematosus, unspecified; M34.9 Systemic sclerosis, unspecified; R31.9 Hematuria, unspecified; Z11.59 Encounter for screening for other viral diseases; Z11.7 Encounter for testing for latent tuberculosis infection
CPT/HCPCS: 36415; 81001; 81374; 82550; 82784; 84182; 86140; 86146; 86147; 86200; 86235; 86255; 86334; 86481; 86704; 86706; 86709; 86803; 87340

== ENCOUNTER → 2023-09-16 15:49 | Outpatient (BNVA) | payer OTHER, SELFPAY | PROVIDERS: PCP Physician Assistant; Visit Provider Surgery Vascular Surgery ==

== ENCOUNTER 2023-09-23 15:28 | Outpatient (AMB) | payer OTHER, SELFPAY ==
--- NOTE | 2023-09-23 15:29 | A.OFFVIS_ITS ---
Intake Vital Signs 09/23/23 16:11 Height 5 ft 7 in Weight 202 lb BMI 31.6 Intake Visit Reasons: 1 week follow up wound dressing change Intake Note: Patient presents for 1 week follow up wound dressing change. Pt has multi layer wrap w/ adaptic and foam dressing over the wounds. Wound is not getting smaller and has dry skin on feet/ toes and Left great toe is starting to crack. Left LE is very swollen. Accompanied by: Self / Same As Patient Allergies bees Allergy (Intermediate, Uncoded 09/23/23 16:13) Difficulty Breathing HPI 1 week follow up wound dressing change HPI Details Very pleasant 32-year-old female presents for follow-up regarding nonhealing right calf ulcer. It persistently remains about the same size. Continues to drain. She has been using a DynaFlex compression wrap with minimal relief. Wound continues to remain approximately the same. She now presents for routine follow-up dressing change. 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 Cognitive needs: No Hearing needs: No Vision needs: Yes Review of Systems Const All systems reviewed & are unremarkable except as noted in HPI and below Reports no additional complaints ENT Reports Normal hearing present Card Denies chest pain, Denies chest pain at rest, Denies chest pain with activity and Denies pedal edema Resp Denies cough GI Denies abdominal pain Musc Denies abnormal gait, Denies muscle cramps and Denies radiating pain into limb Skin/Breast Denies skin ulcer and Denies wounds Neuro Reports Normal hearing present and Denies abnormal gait Psych Reports no additional complaints Physical Exam Vital Signs: BMI result Body Mass Index 31.6 Const General: cooperative, healthy appearing and comfortable Orientation/consciousness: oriented to person, oriented to place and oriented to time HEENT Head: Yes normal to inspection Neck Neck: Yes normal visual inspection Carotids: no bruits Chest Chest palpation & inspection: normal inspection of the chest Resp Effort & Inspection: normal respiratory effort and able to speak in complete sentences Auscultation: clear to auscultation bilaterally, no crackles, no rales, no rhonchi and no wheezes Cardio Rate: regular rate Rhythm: regular rhythm Heart sounds: S1 normal heart sound present and S2 normal heart sound present Bruits: no carotid bruits Peripheral pulses: Peripheral pulses 2+ throughout GI Inspection: Yes normal to inspection Skin Other: Right calf ulcer measuring 3.5 x 3 x 0.1 cm. Reasonable granulation base Wounds: no wounds Hair: normal Neuro General: oriented to person, oriented to place and oriented to time Cranial nerves: Yes CN's II-XII intact bilaterally and Yes Normal hearing present Cognition (Neuro): normal cognition Motor exam (neuro): 5/5 motor strength present throughout Extrem Other: venous exam: No significant superficial varicosities or spider telangiectasias, minimal edema General: No clubbing, No cyanosis and No edema Psych Appearance: grossly normal Mental Status: mental status grossly normal Speech and movement: Normal speech and movement present Assessment & Plan Assessment & Plan (1) Ulcer of right leg: Code(s): L97.919 - Non-pressure chronic ulcer of unspecified part of right lower leg with unspecified severity Qualifiers: Non-pressure ulcer stage: unspecified non-pressure ulcer stage Qualified Code(s): L97.919 - Non-pressure chronic ulcer of unspecified part of right lower leg with unspecified severity Plan: In short patient has nonhealing right lower extremity ulcers. To date all laboratory testing has come back as negative. In addition she is negative for any significant reflux. Will plan for continued compressive wraps and may even increased to an Unna boot. Will plan for surgical intervention later this month with debridement and skin substitute placement of the right leg. She is agreed and we will try to move forward as soon as possible. Thank you for allowing us to assist in her care. If there are any questions or concerns please do not hesitate to contact us Coding Level of Care Code Est Pt Level 4 (57593) Diagnoses Ulcer of right lower extremity, unspecified ulcer stage L97.919 Non-pressure ulcer stage: unspecified non-pressure ulcer stage
[2023-09-23 16:11] VITALS: BMI 31.6
== END 2023-09-23 16:20 | disposition home or self-care (01) ==
PROVIDERS: PCP Physician Assistant; Visit Provider Surgery Vascular Surgery
DX: L97.919 Non-pressure chronic ulcer of unspecified part of right lower leg with unspecified severity (principal)
CPT/HCPCS: 99213

== ENCOUNTER → 2023-09-23 15:28 | Outpatient (BNVA) | payer OTHER, SELFPAY | PROVIDERS: PCP Physician Assistant; Visit Provider Surgery Vascular Surgery ==

== ENCOUNTER 2023-10-04 12:11 | Outpatient (AMB) | payer OTHER, SELFPAY ==
--- NOTE | 2023-10-04 12:12 | A.OFFVIS_ITS ---
Vital Signs 10/04/23 12:13 Height 5 ft 7 in Weight 185 lb BMI 29.0 Intake Visit Reasons: Lymphedema Clinic and Unna boot change Intake Note: follow up for dressing change and lymphedema pump measurements Accompanied by: Self / Same As Patient Allergies bees Allergy (Intermediate, Uncoded 10/04/23 12:19) Difficulty Breathing HPI HPI Lymphedema Clinic and Unna boot change: Details: Very complex patient with multiple locations of swelling throughout her arms and legs. She has been wearing an Unna boot on the right lower extremity for an ulcer that has been nonhealing. She has had significant difficulty in her upper and lower extremities. She now presents for routine follow-up. 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 Cognitive needs: No Hearing needs: No Vision needs: Yes Review of Systems Const All systems reviewed & are unremarkable except as noted in HPI and below Reports no additional complaints ENT Reports Normal hearing present Card Denies chest pain, Denies chest pain at rest, Denies chest pain with activity and Denies pedal edema Resp Denies cough GI Denies abdominal pain Musc Denies abnormal gait, Denies muscle cramps and Denies radiating pain into limb Skin/Breast Denies skin ulcer and Denies wounds Neuro Reports Normal hearing present and Denies abnormal gait Psych Reports no additional complaints Physical Exam Vital Signs: BMI result Body Mass Index 29.0 Const General: cooperative, healthy appearing and comfortable Orientation/consciousness: oriented to person, oriented to place and oriented to time HEENT Head: Yes normal to inspection Neck Neck: Yes normal visual inspection Carotids: no bruits Chest Chest palpation & inspection: normal inspection of the chest Resp Effort & Inspection: normal respiratory effort and able to speak in complete sentences Auscultation: clear to auscultation bilaterally, no crackles, no rales, no rhonchi and no wheezes Cardio Rate: regular rate Rhythm: regular rhythm Heart sounds: S1 normal heart sound present and S2 normal heart sound present Bruits: no carotid bruits Peripheral pulses: Peripheral pulses 2+ throughout GI Inspection: Yes normal to inspection Skin Wounds: no wounds Hair: normal Neuro General: oriented to person, oriented to place and oriented to time Cranial nerves: Yes CN's II-XII intact bilaterally and Yes Normal hearing present Cognition (Neuro): normal cognition Motor exam (neuro): 5/5 motor strength present throughout Extrem Other: venous exam: +2 edema Right in cm: Thigh 72.25 Knee 49.5 Calf 46.25 Ankle 35.5 Left in cm: Thigh 74.75 Knee 47.25 Calf 45.75 Ankle 33 Arms Chest 111 Hips 130 2.5 Right biceps 36.25, forearm 25.5 wrist 17.25 Left bicep 35 forearm 36.25 wrist 17 [] General: No clubbing, No cyanosis and Yes edema Psych Appearance: grossly normal Mental Status: mental status grossly normal Speech and movement: Normal speech and movement present Assessment & Plan Assessment & Plan (1) Lymphedema: Code(s): I89.0 - Lymphedema, not elsewhere classified Category: Medical Plan: Patient has been wearing compression garments elevating her legs and performing home exercise including self manual lymphatic drainage for 30 minutes each day. She has also been watching a low-salt diet. She has seen rheumatology as well. Despite these conservative measures for over 4 weeks she continues to have hyperpigmentation fibrosis in the axilla and progressive lymphedema extending into her upper thighs abdomen and both upper extremities. Patient has had lymphatic compression pumps since July of 2023 and has been using them for 2 hours daily. She will require an advance pump as she is experiencing swelling in the upper thighs abdomen and upper extremities. We are recommending and advanced flexi touch pump. The flexi touch mimics m anual lymphatic drainage and uses a light pressure which will provide a more clinically effective treatment for the patient. The flexi touch his trunk invest garments have the ability to treat and decongest these proximal areas which have been exacerbated by the basic pump. Coding Level of Care Code Est Pt Level 4 (90214) Diagnoses Lymphedema I89.0
[2023-10-04 12:13] VITALS: BMI 29.0
== END 2023-10-04 13:09 | disposition home or self-care (01) ==
LOC: HO.HVS 12:11
PROVIDERS: PCP Physician Assistant; Visit Provider Surgery Vascular Surgery
DX: I89.0 Lymphedema, not elsewhere classified (principal)
CPT/HCPCS: 99214

== ENCOUNTER → 2023-10-04 12:11 | Outpatient (BNVA) | payer OTHER, SELFPAY | PROVIDERS: PCP Physician Assistant; Visit Provider Surgery Vascular Surgery ==

== ENCOUNTER 2023-10-11 10:42 | Day surgery (SDC) | payer OTHER, SELFPAY ==
--- NOTE | 2023-10-08 10:33 | HO.ANESPROP2 ---
Documented by User: Barbara Murcia NP 10/08/23 10:35 HPI - Anesthesia Eval Consult details Narrative: 32yo F for Right Debridement Skin on Leg with skin substitute (fish skin) s/p skin debrid 07/2023 with [facility] PMF[facility] Active Problems Active Problems: All Active Problems Ulcer of right leg (Acute) Lymphedema (Acute) Varicose veins of right lower extremity with inflammation (Acute) Stye (Acute) MRSA (methicillin resistant Staphylococcus aureus) (Acute) Abscess of finger (Acute) Hematuria (Acute) Skin rash (Acute) Recurrent oral ulcers (Acute) Anemia (Acute) Edema (Acute) Past Medical History Medical History Polyarthralgia Nephrolithiasis Varicose veins of right calf Heme positive stool Lymphedema History of MRSA infection Family History Family History Maternal Grandfather Colon cancer Maternal Uncle Lymphedema Surgical History Surgical History History of shoulder surgery History of endoscopy H/O colonoscopy History of Problems with Anesthesia: No Social History Social History Housing: House Alcohol intake: never Patient Tobacco Use Status: Never used Tobacco e-Cigarette/Vaping Use: Never Used Use of substances other than those prescribed or required for medical reasons: No Are you DNR?: No Advance Directives: No Advance Directives Information Provided: Yes service: No Current occupational status: employed 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 Rate : 110 BPM Atrial Rate : 110 BPM P-R Int : 132 ms QRS Dur : 082 ms QT Int : 368 ms P-R-T Axes : 055 003 036 degrees QTc Int : 498 ms Sinus tachycardia Possible Left atrial enlargement Borderline ECG When compared with ECG of 03-JUL-2010 10:37, Vent. rate has increased BY 38 BPM Assessment and Plan Assessment Anesthesia Assessment: Chart Reviewed Final Anesthetic Review History of Problems with Anesthesia: No Documented by User: Brain Elkins MD 10/11/23 12:06 [facility] Past Medical History Medical History Polyarthralgia Nephrolithiasis Varicose veins of right calf Heme positive stool Lymphedema History of MRSA infection Patient : No Family History Family History Maternal Grandfather Colon cancer Maternal Uncle Lymphedema Family history of problems with anesthesia: No Surgical History Surgical History History of shoulder surgery History of endoscopy H/O colonoscopy Social History Social History Housing: House Alcohol intake: never Patient Tobacco Use Status: Never used Tobacco e-Cigarette/Vaping Use: Never Used Use of substances other than those prescribed or required for medical reasons: No Are you DNR?: No Advance Directives: No Advance Directives Information Provided: Yes service: No Current occupational status: employed 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 Cognitive needs: No Hearing needs: No Vision needs: Yes Meds Allergies Allergy/AdvReac Type Severity Reaction Status Date / Time bees Allergy Intermediate Difficulty Uncoded 10/04/23 12:19 Breathing Home Medications ?Medication ?Instructions ?Recorded ?Confirmed ?Last Taken ?Type vitamin B complex 1 tab PO DAILY 12/20/22 10/11/23 Unknown History Exam Airway Mallampati Class: II TM Dist: >3cm Neck ROM: Full Loose/Missing/Broken Teeth: No Heart: ok Lungs: ok Assessment and Plan Assessment Anesthesia Assessment: Anesthesia Plan Discussed Final Anesthetic Review Family History of Problems with Anesthesia: No NPO: Yes ASA Class: II Final Preanesthetic Review: No Changes in Pt Med Stat, Meds/Allgs Chart Reviewed, Consent Obtained/Reviewed and Anes Risks/Benef Reviewed Patient Risk: Low Procedure Risk: Low Anesthetic Plan Anesthetic Plan: MAC: and Agree w/ Assess. and Plan Disposition: Standard PACU
--- NOTE | 2023-10-11 10:24 | PC.NURSE ---
spoke with pt @ 1005, to verify arrival time of 10:00 am, though arrival time was 10:30. can come now, aware of the need for urine sample.
[2023-10-11 10:44] VITALS: BMI 35.5
[2023-10-11 10:49] VITALS: BMI 35.5
[2023-10-11 10:51] VITALS: BP 127/64; PULSE 102; RESP 18; TEMP 36.4; O2SAT 95
[2023-10-11 11:10] LABS: UPreg QC Valid YES; Urine Pregnancy NEGATIVE (NEGATIVE)
[2023-10-11] MEDS: Lactated Ringers 1,000 ML 100 ML IVCONT (11:53)
--- NOTE | 2023-10-11 12:03 | MHC.SHP ---
Pre-Procedural Eval Section A - 24 Hr Update-Section A only Date of Service: 10/11/23 The patient is an INPATIENT: No Changes since office visit: Yes Patient answered all questions The patient has been examined within 24 hours of the surgical procedure. The History & Physical has been completed within 30 days and I have reviewed it.: Yes Section B - Complete if H&P > 30 days Chief Complaint: Non-pressure chronic ulcer of other part of right Allergies: Allergies Allergy/AdvReac Type Severity Reaction Status Date / Time bees Allergy Intermediate Difficulty Uncoded 10/04/23 12:19 Breathing Plan I have reviewed the history and physical and performed a pertinent physical examination on my patient. No changes have occurred unless specified. Time Spent With Patient Time: Total time managing care of this patient today ____ minutes.
--- NOTE | 2023-10-11 13:20 | W.PM.OPN ---
Operative Note Operative Note Date of Service: 10/11/23 Narrative: Operative note by [facility] Preoperative diagnosis: Nonhealing right calf ulcer Postoperative diagnosis: Same Procedure:1. Excisional debridement into muscle 2. Placement of skin substitute Surgeon:Ross Aguilar M.D. 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 Elkins Specimens: None Drains: None Estimated blood loss: Minimal Indications: Very pleasant 32-year-old female with nonhealing right leg ulcer. Prior history infections and lymphedema. She now presents for debridement and skin substitute placement. The patient has signed the informed consent after reviewing risks, complications, benefits, and alternatives previously discussed with the patient. The patient was given the opportunity to ask any additional questions or voice any concerns. All questions were answered to the patient's satisfaction. Procedure in detail: Patient was brought to the operating room prior to which a time-out was called for patient identification and site verification. Right leg was prepped and draped in standard surgical fashion. Excisional debridement was undertaken. The wound was debrided with a 15 blade curette pickups and Metzenbaum scissors. We got through the skin subcu fascia into the muscle layer. We cleared this completely all the way down to deep tissue. Preprocedure measurement was 3 by 4 x 0.2 cm. Postprocedure measurement was 3.5 x 4.5 by 2 cm. Bleeding was controlled with electrocautery wound was thoroughly irrigated out. We then took the Kerecis 6 x 4. This was cut into multiple pieces and trimmed and subsequently stacked. Each layer was sutured down with a 2-0 Polysorb. Finally a bolster dressing was then placed. We then placed a multilayered wrap inclusive of a Kerlix subsequently Buddy wrap and finally a Coban dressing. At the end the case sponge instrument counts were correct. Patient tolerated the procedure well. Returned to recovery with stable vitals. This note is constructed using voice recognition software. While every effort has been made to ensure accuracy, factory maintenance technician errors may have been included. Thank you for allowing me to participate in the care of your patient. Yours sincerely, Ross Aguilar MD, FACS, R.P.V.I.
[2023-10-11 13:31] VITALS: BP 117/54; PULSE 72; RESP 16; TEMP 36.1; O2SAT 100
[2023-10-11 13:46] VITALS: BP 110/74; PULSE 80; RESP 16; TEMP 36.2; O2SAT 100
== END 2023-10-11 14:45 | disposition home or self-care (01) ==
PROVIDERS: Nurse Practitioner; PCP Physician Assistant; Visit Provider Surgery Vascular Surgery
PROC: (CPT 15271; principal; 2023-10-11 12:20)
DX: I89.0 Lymphedema, not elsewhere classified (principal); L97.219 Non-pressure chronic ulcer of right calf with unspecified severity; I83.012 Varicose veins of right lower extremity with ulcer of calf; M79.89 Other specified soft tissue disorders; L81.8 Other specified disorders of pigmentation; Z86.14 Personal history of Methicillin resistant Staphylococcus aureus infection; Z98.890 Other specified postprocedural states
CPT/HCPCS: 15271; 11043; 81025; J0690; J2250; J2704; J2795; J3010; Q4158

== ENCOUNTER → 2023-10-11 10:42 | Outpatient (BNV) | payer OTHER, SELFPAY | PROVIDERS: PCP Physician Assistant; Visit Provider Surgery Vascular Surgery | DX: L97.819 Non-pressure chronic ulcer of other part of right lower leg with unspecified severity (principal) | CPT/HCPCS: 11043; 15271 ==

== ENCOUNTER 2023-10-13 12:59 | Outpatient (AMB) | payer OTHER, SELFPAY ==
--- NOTE | 2023-10-13 13:18 | A.OFFVIS_ITS ---
Vital Signs 10/13/23 13:19 Height 5 ft 6 in Weight 215 lb 6.266 oz BMI 34.8 BP 122/60 Blood Pressure Location Rt brachial Position Sitting Pulse 89 Pulse Source Pulse Oximeter Pulse Oximetry (%) 98 Oxygen Delivery Method Room Air Intake Visit Reasons: skin swelling Intake Note: Patient last seen 08/13/23 presents today for follow up and test results. Pt reports surgery with vascular Dr Aguilar on 10/11/23. Has pain today 6 day pred trial with Dr Aguilar ulcers came back 2-3 days after finishing it. [employer] Required: No Accompanied by: Self / Same As Patient Allergies bees Allergy (Intermediate, Uncoded 10/13/23 13:22) Difficulty Breathing Medication List - Last Reconciled 10/13/23 by Juanita Huang MD cephalexin 500 mg PO Q12H chlorhexidine gluconate 4% 1 appl topical .3 x week 30 doses esomeprazole magnesium 20 mg PO DAILY ferrous sulfate (iron) 325 mg PO DAILY 30 days furosemide 80 mg (2 x 40 mg) PO DAILY 30 days vitamin B complex 1 tab PO DAILY HPI Comments Details: Patient returns for follow-up after completion of her diagnostic workup. She states that the skin graft done by Dr. Yao before did not take so another skin graft was done 2 days ago. She states this procedure was much more painful than the 1st 1. About a month ago she was prescribed Medrol Dosepak which was quite helpful improved the pain and swelling of her skin as well as her mouth ulcers. Initial history: This is a 32-year-old female who presents for evaluation of multiple symptoms. She stated that as an infant 2-month-old she was admitted to the hospital with meningitis, she was in the hospital for more than a month and got discharged. She stated that throughout her childhood, whenever she would have any cut on her skin she would end up with a bacterial infection that required antibiotics. She was doing fairly well until September of last year when she developed severe tongue pain and burning. She went to urgent care and was treated with antifungals for thrush. The treatment did not help, patient could not eat and lost 20 lb in 2 months. After 2 months the oral symptoms improved. She lost plenty of hair and now is wearing hair extensions. Starting December she started to have significant pain and swelling of her lower ex tremities. She would have skin swelling and she would get blisters on her feet. Some of the blisters get infected and they need to be drained and treated with antibiotics. She had 1 blister on the medial aspect of her right ankle, that blister kept getting bigger and bigger. It was measuring 3.5 x 3.5 cm. She was evaluated by vascular surgery and had a skin graft yesterday. She has generaliz ed swelling and increased fluid retention of her lower extremities. She has been wearing compression stockings and using diuretics with some improvement. Also of note patient was found to have hematuria and blood in her stool, she had an endoscopy and colonoscopy which showed mild esophagitis and mild gastritis. Patient denied history of DVT/PE. She never attempted . 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 Cognitive needs: No Hearing needs: No Vision needs: Yes Review of Systems ENT Reports mouth lesions and Reports mouth pain Musc Denies arthralgias and Reports joint swelling Skin/Breast Reports dry skin, Reports alopecia, Reports erythema, Reports skin swelling, Reports skin ulcer and Reports wounds Physical Exam Vital Signs: Last Vital Signs Pulse 89 10/13/23 13:19 BP 122/60 10/13/23 13:19 Pulse Ox 98 10/13/23 13:19 Oxygen Delivery Method Room Air 10/13/23 13:19 BMI result Body Mass Index 34.8 Const General: cooperative, healthy appearing and comfortable Nutritional Appearance: obese Orientation/consciousness: patient oriented x3 Limitations: no limitations HEENT Head: Yes normocephalic and Yes atraumatic Resp Effort & Inspection: normal respiratory effort and able to speak in complete sentences Neuro General: patient oriented x3 Extrem Other: No active synovitis Normal nailfold capillaroscopy Right leg in a bandage Assessment & Plan Assessment & Plan (1) Lymphedema: Code(s): I89.0 - Lymphedema, not elsewhere classified Category: Medical Plan: This is a 32-year-old female presents for evaluation of 1 year history of diffuse skin swelling, skin blisters and multiple wounds, oral ulcers, hair loss, anemia. On exam she does not have any active synovitis. I Do not see any signs suggestive of a specific autoimmune rheumatic disease. Comprehensive serology is unremarkable. She has mildly elevated inflammatory markers. Unfortunately there is no clear diagnosis to her symptoms. She needs dermatology evaluation. However I believe there is some inflammatory component to her symptoms. She did have some improvement with a Medrol Dosepak prescribed by vascular surgery. I think a longer prednisone course, perhaps 4-6 weeks might be helpful. As a temporizing measure. However since patient just had a skin graft, I would like to hold off as prednisone can interfere with wound healing. Advised patient to call the office once Dr. Aguilar believes we can start prednisone (2) Ulcer of right leg: Code(s): L97.919 - Non-pressure chronic ulcer of unspecified part of right lower leg with unspecified severity Category: Medical Qualifiers: Non-pressure ulcer stage: unspecified non-pressure ulcer stage Qualified Code(s): L97.919 - Non-pressure chronic ulcer of unspecified part of right lower leg with unspecified severity (3) Skin rash: Code(s): R21 - Rash and other nonspecific skin eruption Category: Medical Plan I spent 26 minutes reviewing patient's chart, evaluating patient, ordering diagnostic workup, counseling patient and documenting in the chart Coding Level of Care Code Est Pt Level 4 (26054) Diagnoses Lymphedema I89.0 Ulcer of right lower extremity, unspecified ulcer stage L97.919 Non-pressure ulcer stage: unspecified non-pressure ulcer stage Skin rash R21
[2023-10-13 13:19] VITALS: BP 122/60; PULSE 89; O2SAT 98; BMI 34.8
== END 2023-10-13 14:02 | disposition home or self-care (01) ==
LOC: HO.RHE 12:59
PROVIDERS: PCP Physician Assistant; Visit Provider Student in an Organized Health Care Education/Training Program
DX: I89.0 Lymphedema, not elsewhere classified (principal); L97.919 Non-pressure chronic ulcer of unspecified part of right lower leg with unspecified severity; R21 Rash and other nonspecific skin eruption
CPT/HCPCS: 99214

== ENCOUNTER → 2023-10-13 12:59 | Outpatient (BNVA) | payer OTHER, SELFPAY | PROVIDERS: PCP Physician Assistant; Visit Provider Student in an Organized Health Care Education/Training Program ==

== ENCOUNTER 2023-10-14 15:26 | Outpatient (AMB) | payer OTHER, SELFPAY ==
[2023-10-14 15:31] VITALS: BMI 34.7
--- NOTE | 2023-10-14 15:31 | MHC.OFFVIS ---
Vital Signs 10/14/23 15:31 Height 5 ft 6 in Weight 215 lb BMI 34.7 Intake Visit Reasons: Skin sub follow up per Lauren Intake Note: 3 day follow up Surgical debridement & skin substitute placement on 10/11/23. Pt has multiple new blisters that have ruptured, has redness over various areas of her Right LE. Has swelling w/ lymphorrhea. She has more pain w/ this surgical debridement than last time. Accompanied by: Self / Same As Patient Allergies bees Allergy (Intermediate, Uncoded 10/14/23 16:19) Difficulty Breathing HPI HPI Skin sub follow up per Lauren: Details: Very pleasant 32-year-old female presents for postoperative follow-up. She would undergone debridement with skin substitute placement. She now presents for dressing change. Of note she reports her leg has been more swollen. She has significant swelling. Of note in the interim she has seen Rheumatology. She now presents to us for follow-up. 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 Cognitive needs: No Hearing needs: No Vision needs: Yes Review of Systems Const All systems reviewed & are unremarkable except as noted in HPI and below Reports no additional complaints ENT Reports Normal hearing present Card Denies chest pain, Denies chest pain at rest, Denies chest pain with activity and Denies pedal edema Resp Denies cough GI Denies abdominal pain Musc Denies abnormal gait, Denies muscle cramps and Denies radiating pain into limb Skin/Breast Denies skin ulcer and Denies wounds Neuro Reports Normal hearing present and Denies abnormal gait Psych Reports no additional complaints Physical Exam Vital Signs: BMI result Body Mass Index 34.7 Const General: cooperative, healthy appearing and comfortable Orientation/consciousness: oriented to person, oriented to place and oriented to time HEENT Head: Yes normal to inspection Neck Neck: Yes normal visual inspection Carotids: no bruits Chest Chest palpation & inspection: normal inspection of the chest Resp Effort & Inspection: normal respiratory effort and able to speak in complete sentences Auscultation: clear to auscultation bilaterally, no crackles, no rales, no rhonchi and no wheezes Cardio Rate: regular rate Rhythm: regular rhythm Heart sounds: S1 normal heart sound present and S2 normal heart sound present Bruits: no carotid bruits Peripheral pulses: Peripheral pulses 2+ throughout GI Inspection: Yes normal to inspection Skin Other: Wound is approximately 3 cm in diameter hard to tell with skin substitute intact. Appears to have good take. She does have some blistered areas Wounds: no wounds Hair: normal Neuro General: oriented to person, oriented to place and oriented to time Cranial nerves: Yes CN's II-XII intact bilaterally and Yes Normal hearing present Cognition (Neuro): normal cognition Motor exam (neuro): 5/5 motor strength present throughout Extrem Other: venous exam: No significant superficial varicosities or spider telangiectasias, minimal edema General: No clubbing, No cyanosis and No edema Psych Appearance: grossly normal Mental Status: mental status grossly normal Speech and movement: Normal speech and movement present Assessment & Plan Assessment & Plan (1) Ulcer of right leg: Code(s): L97.919 - Non-pressure chronic ulcer of unspecified part of right lower leg with unspecified severity Category: Medical Qualifiers: Non-pressure ulcer stage: unspecified non-pressure ulcer stage Qualified Code(s): L97.919 - Non-pressure chronic ulcer of unspecified part of right lower leg with unspecified severity Plan: In short patient has undergone excisional debridement and skin substitute placement in the operating room. Appears to be doing well postoperatively. The concern is she has continued edema and swelling. In general has developed ulcerations throughout face smell an upper extremities. Unfortunately does not appear to be moving forward with Rheumatology over here. May need referral to a tertiary care center. We will try to assist and coordinate this process. She is scheduled for 1 week follow-up with us. Thank you for allowing us to assist in her care. Coding Level of Care Code Est Pt Level 3 (79287) Diagnoses Ulcer of right lower extremity, unspecified ulcer stage L97.919 Non-pressure ulcer stage: unspecified non-pressure ulcer stage
== END 2023-10-15 12:13 | disposition home or self-care (01) ==
PROVIDERS: PCP Physician Assistant; Visit Provider Surgery Vascular Surgery
DX: L97.919 Non-pressure chronic ulcer of unspecified part of right lower leg with unspecified severity (principal)
CPT/HCPCS: 99213

== ENCOUNTER → 2023-10-14 15:26 | Outpatient (BNVA) | payer OTHER, SELFPAY | PROVIDERS: PCP Physician Assistant; Visit Provider Surgery Vascular Surgery ==

== ENCOUNTER 2023-10-19 15:32 | Outpatient (AMB) | payer OTHER, SELFPAY ==
[2023-10-20 08:00] VITALS: BMI 34.7
--- NOTE | 2023-10-20 08:00 | A.OFFVIS_ITS ---
Vital Signs 10/20/23 08:00 Height 5 ft 6 in Weight 215 lb BMI 34.7 Intake Visit Reasons: Follow Up bandage change Intake Note: 5 day follow up bandage change multi-layer compression wrap for non-healing ulcer s/pp surgical debridement and skin substitute placement on 10/11/2023. Pt has heavy drainage and some new blisters. Wound measure 4cm x 2.5 cm. Also has bilateral LE swelling. Accompanied by: Self / Same As Patient Allergies bees Allergy (Intermediate, Uncoded 10/20/23 08:02) Difficulty Breathing HPI HPI Follow Up bandage change: Details: Very pleasant 32-year-old female brought in for routine dressing change for nonhealing ulcer of the right calf. She is undergone placement of care assist. Reports that she is doing fairly well. She does have some drainage from the dressing. Now for routine follow-up. Of note she has been scheduled with [facility] Rheumatology. 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 Cognitive needs: No Hearing needs: No Vision needs: Yes Review of Systems Const All systems reviewed & are unremarkable except as noted in HPI and below Reports no additional complaints ENT Reports Normal hearing present Card Denies chest pain, Denies chest pain at rest, Denies chest pain with activity and Denies pedal edema Resp Denies cough GI Denies abdominal pain Musc Denies abnormal gait, Denies muscle cramps and Denies radiating pain into limb Skin/Breast Denies skin ulcer and Denies wounds Neuro Reports Normal hearing present and Denies abnormal gait Psych Reports no additional complaints Physical Exam Vital Signs: BMI result Body Mass Index 34.7 Const General: cooperative, healthy appearing and comfortable Orientation/consciousness: oriented to person, oriented to place and oriented to time HEENT Head: Yes normal to inspection Neck Neck: Yes normal visual inspection Carotids: no bruits Chest Chest palpation & inspection: normal inspection of the chest Resp Effort & Inspection: normal respiratory effort and able to speak in complete sentences Auscultation: clear to auscultation bilaterally, no crackles, no rales, no rhonchi and no wheezes Cardio Rate: regular rate Rhythm: regular rhythm Heart sounds: S1 normal heart sound present and S2 normal heart sound present Bruits: no carotid bruits Peripheral pulses: Peripheral pulses 2+ throughout GI Inspection: Yes normal to inspection Skin Other: Right calf ulcer measures 4 x 2.5 x 0.3 cm. It does appear to have reasonable granulation base Wounds: no wounds Hair: normal Neuro General: oriented to person, oriented to place and oriented to time Cranial nerves: Yes CN's II-XII intact bilaterally and Yes Normal hearing present Cognition (Neuro): normal cognition Motor exam (neuro): 5/5 motor strength present throughout Extrem Other: venous exam: No significant superficial varicosities or spider carie ngiectasias, minimal edema General: No clubbing, No cyanosis and No edema Psych Appearance: grossly normal Mental Status: mental status grossly normal Speech and movement: Normal speech and movement present Assessment & Plan Assessment & Plan (1) Ulcer of right leg: Code(s): L97.919 - Non-pressure chronic ulcer of unspecified part of right lower leg with unspecified severity Category: Medical Qualifiers: Non-pressure ulcer stage: unspecified non-pressure ulcer stage Qualified Code(s): L97.919 - Non-pressure chronic ulcer of unspecified part of right lower leg with unspecified severity Plan: In short patient has nonhealing right lower extremity ulcer. Will plan for 1 week follow-up for routine dressing changes. Should there be any interval issues happy to see her back sooner. Thank you for allowing us to assist in her care. Coding Level of Care Code Est Pt Level 3 (15806) Diagnoses Ulcer of right lower extremity, unspecified ulcer stage L97.919 Non-pressure ulcer stage: unspecified non-pressure ulcer stage
== END 2023-10-19 16:06 | disposition home or self-care (01) ==
PROVIDERS: PCP Physician Assistant; Visit Provider Surgery Vascular Surgery
DX: L97.919 Non-pressure chronic ulcer of unspecified part of right lower leg with unspecified severity (principal)
CPT/HCPCS: 99213

== ENCOUNTER → 2023-10-19 15:32 | Outpatient (BNVA) | payer OTHER, SELFPAY | PROVIDERS: PCP Physician Assistant; Visit Provider Surgery Vascular Surgery ==

== ENCOUNTER 2023-10-26 15:44 | Outpatient (AMB) | payer OTHER, SELFPAY ==
[2023-10-26 15:45] VITALS: BMI 34.7
--- NOTE | 2023-10-26 15:45 | A.OFFVIS_ITS ---
Vital Signs 10/26/23 15:45 Height 5 ft 6 in Weight 215 lb BMI 34.7 Intake Visit Reasons: 1 week follow up bandage change Intake Note: Right LE bandage change s/p skin sub and surgical debridement. Pt dressing is saturated. measures 4 cm x 3cm x 1.5cm Accompanied by: Self / Same As Patient Allergies bees Allergy (Intermediate, Uncoded 10/26/23 15:54) Difficulty Breathing HPI HPI 1 week follow up bandage change: Details: Doing well. No significant interval changes. Now for routine wrap change. 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 Cognitive needs: No Hearing needs: No Vision needs: Yes Review of Systems Const All systems reviewed & are unremarkable except as noted in HPI and below Reports no additional complaints ENT Reports Normal hearing present Card Denies chest pain, Denies chest pain at rest, Denies chest pain with activity and Denies pedal edema Resp Denies cough GI Denies abdominal pain Musc Denies abnormal gait, Denies muscle cramps and Denies radiating pain into limb Skin/Breast Denies skin ulcer and Denies wounds Neuro Reports Normal hearing present and Denies abnormal gait Psych Reports no additional complaints Physical Exam Vital Signs: BMI result Body Mass Index 34.7 Const General: cooperative, healthy appearing and comfortable Orientation/consciousness: oriented to person, oriented to place and oriented to time HEENT Head: Yes normal to inspection Neck Neck: Yes normal visual inspection Carotids: no bruits Chest Chest palpation & inspection: normal inspection of the chest Resp Effort & Inspection: normal respiratory effort and able to speak in complete sentences Auscultation: clear to auscultation bilaterally, no crackles, no rales, no rhonchi and no wheezes Cardio Rate: regular rate Rhythm: regular rhythm Heart sounds: S1 normal heart sound present and S2 normal heart sound present Bruits: no carotid bruits Peripheral pulses: Peripheral pulses 2+ throughout GI Inspection: Yes normal to inspection Skin Other: Right calf measures 3.5 x 3.0 x 1.5 cm. Good take of skin substitute Wounds: no wounds Hair: normal Neuro General: oriented to person, oriented to place and oriented to time Cranial nerves: Yes CN's II-XII intact bilaterally and Yes Normal hearing present Cognition (Neuro): normal cognition Motor exam (neuro): 5/5 motor strength present throughout Extrem Other: venous exam: No significant superficial varicosities or spider telangiecta antonino, minimal edema General: No clubbing, No cyanosis and No edema Psych Appearance: grossly normal Mental Status: mental status grossly normal Speech and movement: Normal speech and movement present Assessment & Plan Assessment & Plan (1) Ulcer of right leg: Code(s): L97.919 - Non-pressure chronic ulcer of unspecified part of right lower leg with unspecified severity Category: Medical Qualifiers: Non-pressure ulcer stage: unspecified non-pressure ulcer stage Qualified Code(s): L97.919 - Non-pressure chronic ulcer of unspecified part of right lower leg with unspecified severity Plan: In short patient has nonhealing ulcer of the right leg. At the current time will continue with compressive wraps. In addition to the local wound care she is in the process of getting an appointment with [facility] Rheumatology. She will follow up with us in approximately 4-5 days. Thank you for allowing us to assist in her care. Coding Level of Care Code Est Pt Level 3 (26161) Diagnoses Ulcer of right lower extremity, unspecified ulcer stage L97.919 Non-pressure ulcer stage: unspecified non-pressure ulcer stage
== END 2023-10-26 16:08 | disposition home or self-care (01) ==
LOC: HO.HVS 15:45
PROVIDERS: PCP Physician Assistant; Visit Provider Surgery Vascular Surgery
DX: L97.919 Non-pressure chronic ulcer of unspecified part of right lower leg with unspecified severity (principal)
CPT/HCPCS: 99213

== ENCOUNTER → 2023-10-26 15:44 | Outpatient (BNVA) | payer OTHER, SELFPAY | PROVIDERS: PCP Physician Assistant; Visit Provider Surgery Vascular Surgery ==

== ENCOUNTER 2023-10-28 14:59 | Outpatient (AMB) | payer OTHER, SELFPAY ==
--- NOTE | 2023-10-28 15:15 | MHC.OFFVIS ---
Intake Visit Reasons: 2 day bandage change Intake Note: Patient presents for 2 day bandage change s/p leg debridement with artificial skin. Allergies bees Allergy (Intermediate, Uncoded 10/26/23 15:54) Difficulty Breathing HPI HPI 2 day bandage change: Details: Very pleasant 32-year-old female presents for routine follow-up for dressing change. She has had no interval changes. She reports she is doing fairly well. 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 Cognitive needs: No Hearing needs: No Vision needs: Yes Review of Systems Const All systems reviewed & are unremarkable except as noted in HPI and below Reports no additional complaints ENT Reports Normal hearing present Card Denies chest pain, Denies chest pain at rest, Denies chest pain with activity and Denies pedal edema Resp Denies cough GI Denies abdominal pain Musc Denies abnormal gait, Denies muscle cramps and Denies radiating pain into limb Skin/Breast Denies skin ulcer and Denies wounds Neuro Reports Normal hearing present and Denies abnormal gait Psych Reports no additional complaints Physical Exam Const General: cooperative, healthy appearing and comfortable Orientation/consciousness: oriented to person, oriented to place and oriented to time HEENT Head: Yes normal to inspection Neck Neck: Yes normal visual inspection Carotids: no bruits Chest Chest palpation & inspection: normal inspection of the chest Resp Effort & Inspection: normal respiratory effort and able to speak in complete sentences Auscultation: clear to auscultation bilaterally, no crackles, no rales, no rhonchi and no wheezes Cardio Rate: regular rate Rhythm: regular rhythm Heart sounds: S1 normal heart sound present and S2 normal heart sound present Bruits: no carotid bruits Peripheral pulses: Peripheral pulses 2+ throughout GI Inspection: Yes normal to inspection Skin Other: Overall appears to be looking exactly the same. Skin surrounding the wound appears to be doing a little bit better. Wound right now measures 3.5 x 3 x 1.5 cm. Wounds: no wounds Hair: normal Neuro General: oriented to person, oriented to place and oriented to time Cranial nerves: Yes CN's II-XII intact bilaterally and Yes Normal hearing present Cognition (Neuro): normal cognition Motor exam (neuro): 5/5 motor strength present throughout Extrem Other: venous exam: No significant superficial varicosities or spider telangiectasias, minimal edema General: No clubbing, No cyanosis and No edema Psych Appearance: grossly normal Mental Status: mental status grossly normal Speech and movement: Normal speech and movement present Assessment & Plan Assessment & Plan (1) Ulcer of right leg: Code(s): L97.919 - Non-pressure chronic ulcer of unspecified part of right lower leg with unspecified severity Category: Medical Qualifiers: Non-pressure ulcer stage: unspecified non-pressure ulcer stage Qualified Code(s): L97.919 - Non-pressure chronic ulcer of unspecified part of right lower leg with unspecified severity Plan: In short wound of right leg appears to be improving slowly. Will plan for continued dressing changes twice a week. She does have a rheumatology follow-up scheduled at [facility]. In addition she does have a dermatology follow-up as well. Thank you for allowing us to assist in her care. Coding Level of Care Code Est Pt Level 3 (74178) Diagnoses Ulcer of right lower extremity, unspecified ulcer stage L97.919 Non-pressure ulcer stage: unspecified non-pressure ulcer stage
== END 2023-10-28 15:41 | disposition home or self-care (01) ==
PROVIDERS: PCP Physician Assistant; Visit Provider Surgery Vascular Surgery
DX: L97.919 Non-pressure chronic ulcer of unspecified part of right lower leg with unspecified severity (principal)
CPT/HCPCS: 99213

== ENCOUNTER → 2023-10-28 14:59 | Outpatient (BNVA) | payer OTHER, SELFPAY | PROVIDERS: PCP Physician Assistant; Visit Provider Surgery Vascular Surgery ==

== ENCOUNTER → 2023-11-02 16:02 | Outpatient (BNVA) | payer OTHER, SELFPAY | PROVIDERS: PCP Physician Assistant; Visit Provider Surgery Vascular Surgery ==

== ENCOUNTER → 2023-11-09 16:00 | Outpatient (BNVA) | payer OTHER, SELFPAY | PROVIDERS: PCP Physician Assistant; Visit Provider Surgery Vascular Surgery ==

== ENCOUNTER 2023-11-11 16:11 | Outpatient (AMB) | payer OTHER, SELFPAY ==
--- NOTE | 2023-11-11 16:11 | MHC.OFFVIS ---
Vital Signs 11/11/23 16:12 Height 5 ft 6 in Weight 215 lb BMI 34.7 Intake Visit Reasons: 2 day dressing change Intake Note: 2 day dressing change for skin sub and non-healing wound Right LE. Looks much better today Accompanied by: Self / Same As Patient Allergies bees Allergy (Intermediate, Uncoded 11/11/23 16:13) Difficulty Breathing HPI HPI 2 day dressing change: Details: Very pleasant 32-year-old female presents for follow-up regarding nonhealing right lower extremity ulcer. It continues to progress nicely and she reports that the swelling has decreased. She has been compliant with her lymphedema pumps. She now presents for routine follow-up. 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 Cognitive needs: No Hearing needs: No Vision needs: Yes Review of Systems Const All systems reviewed & are unremarkable except as noted in HPI and below Reports no additional complaints ENT Reports Normal hearing present Card Denies chest pain, Denies chest pain at rest, Denies chest pain with activity and Denies pedal edema Resp Denies cough GI Denies abdominal pain Musc Denies abnormal gait, Denies muscle cramps and Denies radiating pain into limb Skin/Breast Denies skin ulcer and Denies wounds Neuro Reports Normal hearing present and Denies abnormal gait Psych Reports no additional complaints Physical Exam Vital Signs: BMI result Body Mass Index 34.7 Const General: cooperative, healthy appearing and comfortable Orientation/consciousness: oriented to person, oriented to place and oriented to time HEENT Head: Yes normal to inspection Neck Neck: Yes normal visual inspection Carotids: no bruits Chest Chest palpation & inspection: normal inspection of the chest Resp Effort & Inspection: normal respiratory effort and able to speak in complete sentences Auscultation: clear to auscultation bilaterally, no crackles, no rales, no rhonchi and no wheezes Cardio Rate: regular rate Rhythm: regular rhythm Heart sounds: S1 normal heart sound present and S2 normal heart sound present Bruits: no carotid bruits Peripheral pulses: Peripheral pulses 2+ throughout GI Inspection: Yes normal to inspection Skin Other: Right calf ulcer measures 3 x 2 x 0.7. Appears to have good granulation base. Wounds: no wounds Hair: normal Neuro General: oriented to person, oriented to place and oriented to time Cranial nerves: Yes CN's II-XII intact bilaterally and Yes Normal hearing present Cognition (Neuro): normal cognition Motor exam (neuro): 5/5 motor strength present throughout Extrem Other: venous exam: No significant superficial varicosities or spider telangiectasias, minimal edema General: No clubbing, No cyanosis and No edema Psych Appearance: grossly normal Mental Status: mental status grossly normal Speech and movement: Normal speech and movement present Assessment & Plan Assessment & Plan (1) Ulcer of right leg: Code(s): L97.919 - Non-pressure chronic ulcer of unspecified part of right lower leg with unspecified severity Category: Medical Qualifiers: Non-pressure ulcer stage: unspecified non-pressure ulcer stage Qualified Code(s): L97.919 - Non-pressure chronic ulcer of unspecified part of right lower leg with unspecified severity Plan: She continues to improve in terms of her wound. In general appears to be doing somewhat better. Remains in good spirits. She does have a rheumatology evaluation scheduled for [facility]. We encouraged her to keep that appointment. She will continue to follow up with us on twice week schedule to continue with multilayered compressive wraps. Thank you for allowing us to assist in her care. If there are any questions or concerns please do not hesitate to contact us. Coding Level of Care Code Est Pt Level 3 (50810) Diagnoses Ulcer of right lower extremity, unspecified ulcer stage L97.919 Non-pressure ulcer stage: unspecified non-pressure ulcer stage
[2023-11-11 16:12] VITALS: BMI 34.7
== END 2023-11-12 07:07 | disposition home or self-care (01) ==
LOC: HO.HVS 16:11
PROVIDERS: PCP Physician Assistant; Visit Provider Surgery Vascular Surgery
DX: L97.919 Non-pressure chronic ulcer of unspecified part of right lower leg with unspecified severity (principal)
CPT/HCPCS: 99213

== ENCOUNTER → 2023-11-11 16:11 | Outpatient (BNVA) | payer OTHER, SELFPAY | PROVIDERS: PCP Physician Assistant; Visit Provider Surgery Vascular Surgery ==

== ENCOUNTER → 2023-11-17 09:08 | Outpatient (BNVA) | payer OTHER, SELFPAY | PROVIDERS: PCP Physician Assistant; Visit Provider Surgery Vascular Surgery ==

== ENCOUNTER 2023-11-18 15:01 | Outpatient (AMB) | payer OTHER, SELFPAY ==
--- NOTE | 2023-11-18 15:07 | MHC.OFFVIS ---
Intake Visit Reasons: 2 day dressing change Intake Note: Patient presents for 2 day dressing change. Accompanied by: Self / Same As Patient Allergies bees Allergy (Intermediate, Uncoded 11/17/23 09:13) Difficulty Breathing HPI HPI 2 day dressing change: Details: Very pleasant 33-year-old female presents for routine follow-up status post right leg wound debridement and skin substitute placement. She has been in compressive wraps and reports that she is doing fairly well with that. She does have occasional pain with that. And today she has noticed a blister that developed in the posterior aspect of her calf. Overall she reports she is doing fairly well with the compressive wraps. 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 Cognitive needs: No Hearing needs: No Vision needs: Yes Review of Systems Const All systems reviewed & are unremarkable except as noted in HPI and below Reports no additional complaints ENT Reports Normal hearing present Card Denies chest pain, Denies chest pain at rest, Denies chest pain with activity and Denies pedal edema Resp Denies cough GI Denies abdominal pain Musc Denies abnormal gait, Denies muscle cramps and Denies radiating pain into limb Skin/Breast Denies skin ulcer and Denies wounds Neuro Reports Normal hearing present and Denies abnormal gait Psych Reports no additional complaints Physical Exam Const General: cooperative, healthy appearing and comfortable Orientation/consciousness: oriented to person, oriented to place and oriented to time HEENT Head: Yes normal to inspection Neck Neck: Yes normal visual inspection Carotids: no bruits Chest Chest palpation & inspection: normal inspection of the chest Resp Effort & Inspection: normal respiratory effort and able to speak in complete sentences Auscultation: clear to auscultation bilaterally, no crackles, no rales, no rhonchi and no wheezes Cardio Rate: regular rate Rhythm: regular rhythm Heart sounds: S1 normal heart sound present and S2 normal heart sound present Bruits: no carotid bruits Peripheral pulses: Peripheral pulses 2+ throughout GI Inspection: Yes normal to inspection Skin Other: Right calf wound measures 2.5 x 2 x 0.5 cm. It appears to have a good granulation base. In general appears to be doing better Wounds: no wounds Hair: normal Neuro General: oriented to person, oriented to place and oriented to time Cranial nerves: Yes CN's II-XII intact bilaterally and Yes Normal hearing present Cognition (Neuro): normal cognition Motor exam (neuro): 5/5 motor strength present throughout Extrem Other: venous exam: No significant superficial varicosities or spider telangiectasias, minimal edema General: No clubbing, No cyanosis and No edema Psych Appearance: grossly normal Mental Status: mental status grossly normal Speech and movement: Normal speech and movement present Assessment & Plan Assessment & Plan (1) Ulcer of right leg: Code(s): L97.919 - Non-pressure chronic ulcer of unspecified part of right lower leg with unspecified severity Category: Medical Qualifiers: Non-pressure ulcer stage: unspecified non-pressure ulcer stage Qualified Code(s): L97.919 - Non-pressure chronic ulcer of unspecified part of right lower leg with unspecified severity Plan: In short patient is doing well status post wound debridement. Will plan for continued local wound care and compressive wraps. She will follow up with us in approximately 4-5 days. Also of note she is scheduled for rheumatology appointment in December. Should there be any interval issues happy to see her back sooner. Thank you for allowing us to assist in her care. Coding Level of Care Code Est Pt Level 3 (31696) Diagnoses Ulcer of right lower extremity, unspecified ulcer stage L97.919 Non-pressure ulcer stage: unspecified non-pressure ulcer stage
== END 2023-11-18 15:57 | disposition home or self-care (01) ==
PROVIDERS: PCP Physician Assistant; Visit Provider Surgery Vascular Surgery
DX: L97.919 Non-pressure chronic ulcer of unspecified part of right lower leg with unspecified severity (principal)
CPT/HCPCS: 99213

== ENCOUNTER → 2023-11-18 15:01 | Outpatient (BNVA) | payer OTHER, SELFPAY | PROVIDERS: PCP Physician Assistant; Visit Provider Surgery Vascular Surgery ==

== ENCOUNTER → 2023-11-29 08:01 | Outpatient (BNVA) | payer OTHER, SELFPAY | PROVIDERS: PCP Physician Assistant; Visit Provider Surgery Vascular Surgery ==

== ENCOUNTER → 2024-03-09 14:32 | Outpatient (BNVA) | payer OTHER, SELFPAY | PROVIDERS: PCP Physician Assistant; Visit Provider Surgery Vascular Surgery ==

== ENCOUNTER 2024-03-16 13:58 | Outpatient (AMB) | payer OTHER, SELFPAY ==
--- NOTE | 2024-03-16 14:03 | MHC.OFFVIS ---
Vital Signs 03/16/24 14:03 Height 5 ft 6 in Intake Visit Reasons: follow up multi later dressing change Intake Note: 1 week follow up Right LE dressing change Accompanied by: Friend Allergies bees Allergy (Intermediate, Uncoded 03/16/24 14:17) Difficulty Breathing HPI HPI follow up multi later dressing change: Details: Very pleasant 33-year-old female presents for routine follow-up regarding nonhealing ulcers. Appears to be doing extremely well with her multilayered compressive stockings. She has been out of work and not due to return until April 14. Has been seen by [facility] in appears to be doing significantly better. She was in a facility in [place] for depression and does appear to be doing relatively well with that. She reports she is on medications for that and appears to be relatively compliant. In general in good spirits and now for routine follow-up and lower extremity wound check. 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 Cognitive needs: No Hearing needs: No Vision needs: Yes Review of Systems Const All systems reviewed & are unremarkable except as noted in HPI and below Reports no additional complaints ENT Reports Normal hearing present Card Denies chest pain, Denies chest pain at rest, Denies chest pain with activity and Denies pedal edema Resp Denies cough GI Denies abdominal pain Musc Denies abnormal gait, Denies muscle cramps and Denies radiating pain into limb Skin/Breast Denies skin ulcer and Denies wounds Neuro Reports Normal hearing present and Denies abnormal gait Psych Reports no additional complaints Physical Exam Const General: cooperative, healthy appearing and comfortable Orientation/consciousness: oriented to person, oriented to place and oriented to time HEENT Head: Yes normal to inspection Neck Neck: Yes normal visual inspection Carotids: no bruits Chest Chest palpation & inspection: normal inspection of the chest Resp Effort & Inspection: normal respiratory effort and able to speak in complete sentences Auscultation: clear to auscultation bilaterally, no crackles, no rales, no rhonchi and no wheezes Cardio Rate: regular rate Rhythm: regular rhythm Heart sounds: S1 normal heart sound present and S2 normal heart sound present Bruits: no carotid bruits Peripheral pulses: Peripheral pulses 2+ throughout GI Inspection: Yes normal to inspection Skin Other: Right calf proximally 2 cm area of dry eschar unclear if there is open ulcerations underneath Wounds: no wounds Hair: normal Neuro General: oriented to person, oriented to place and oriented to time Cranial nerves: Yes CN's II-XII intact bilaterally and Yes Normal hearing present Cognition (Neuro): normal cognition Motor exam (neuro): 5/5 motor strength present throughout Extrem Other: venous exam: No significant superficial varicosities or spider telangiectasias, minimal edema General: No clubbing, No cyanosis and No edema Psych Appearance: grossly normal Mental Status: mental status grossly normal Speech and movement: Normal speech and movement present Assessment & Plan Assessment & Plan (1) Ulcer of right leg: Code(s): L97.919 - Non-pressure chronic ulcer of unspecified part of right lower leg with unspecified severity Category: Medical Qualifiers: Non-pressure ulcer stage: unspecified non-pressure ulcer stage Qualified Code(s): L97.919 - Non-pressure chronic ulcer of unspecified part of right lower leg with unspecified severity Plan: In short right lower extremity appears to be doing relatively well. At the current time she is on diuretics and compressive wraps. Would continue with that would like it to be completely healed. I am eager to get it healed before she restarts work. We did discuss routine conservative measures including exercise and elevation. She will follow up with us in approximately 2 weeks time for routine wound check and compressive wrap change. Thank you for allowing us to assist in her care. Please note a longitudinal relationship has been created with the patient and we have been following and surveillance this chronic condition. Coding Level of Care Code Est Pt Level 3 (95545) Complex EM visit Add On G2211 Diagnoses Ulcer of right lower extremity, unspecified ulcer stage L97.919 Non-pressure ulcer stage: unspecified non-pressure ulcer stage
== END 2024-03-16 14:44 | disposition home or self-care (01) ==
PROVIDERS: PCP Physician Assistant; Visit Provider Surgery Vascular Surgery
DX: L97.919 Non-pressure chronic ulcer of unspecified part of right lower leg with unspecified severity (principal)
CPT/HCPCS: 99213; G2211

== ENCOUNTER → 2024-03-16 13:58 | Outpatient (BNVA) | payer OTHER, SELFPAY | PROVIDERS: PCP Physician Assistant; Visit Provider Surgery Vascular Surgery ==

== ENCOUNTER 2024-03-30 14:59 | Outpatient (AMB) | payer OTHER, SELFPAY ==
--- NOTE | 2024-03-30 15:17 | A.OFFVIS_ITS ---
Vital Signs 03/30/24 15:17 Height 5 ft 6 in Intake Visit Reasons: 2 week follow up dressing Intake Note: 2 week follow up Right multi wrap dressing change. Pt does have a severe reaction with wounds Allergies bees Allergy (Intermediate, Uncoded 03/16/24 14:17) Difficulty Breathing HPI HPI 2 week follow up dressing: Details: Tiffanie presenting today for a 2 week follow-up due to ongoing wound. She has been changing her bandage twice a week and has noticed that the wound has become more weepy with yellowish colored discharge. She is also experiencing Behcet's flare right now and has multiple lesions all over her body including orally. She does have concerns for possible infection. She has tried to call her primary as well as her air pollution engineer has not heard back. She denies any pain with the wound but is concerned because it is open again. We had discontinued the Adaptic at the last visit; however, due to the weeping nature of the wound we will likely start that back up again. She denies any other complaints today. 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 Cognitive needs: No Hearing needs: No Vision needs: Yes Review of Systems Const Reports as per HPI and Denies weakness ENT Reports Normal hearing present and Denies dizziness Card Reports as per HPI, Denies chest pain, Denies chest pain at rest, Denies chest pain with activity, Denies dyspnea and Denies dyspnea on exertion Resp Reports as per HPI, Denies cough, Denies dyspnea and Denies dyspnea on exertion GI Reports as per HPI, Denies abdominal pain, Denies nausea and Denies vomiting Musc Denies numbness Skin/Breast Reports as per HPI, Denies erythema and Denies wounds Neuro Reports Normal hearing present, Denies dizziness, Denies numbness, Denies Sensory deficit (Neuro) and Denies weakness Psych Reports no additional complaints Endo Reports no additional complaints Physical Exam Const General: healthy appearing and no acute distress Orientation/consciousness: patient oriented x3 HEENT Head: Yes normal to inspection Ears: hearing grossly normal bilaterally Mouth: Normal oral and palatal mucosa present Resp Effort & Inspection: normal respiratory effort and able to speak in complete sentences Auscultation: clear to auscultation bilaterally Cardio Jugular venous distension: no JVD Rate: regular rate Rhythm: regular rhythm Heart sounds: S1 normal heart sound present and S2 normal heart sound present Bruits: no abdominal aortic bruits, no carotid bruits, no femoral bruits and no renal bruits Peripheral pulses: Peripheral pulses 2+ throughout GI Inspection: Yes normal to inspection Palpation (GI): No Abdominal aortic bruit present Skin Other: Left lower extremity wound: Same size as last visit. Wound bed is pink granulation tissue. There is some slight yellow discharge noted on the bandage as well as when wiped with a clean dry dressing. No pain upon palpation. No surrounding erythema noted. Multiple flare lesions noted over bilateral hands, feet, oral mucosa membranes, neck. The patient also notes some on her vulvar area. General skin exam: no rashes or lesions noted Wounds: no wounds Hair: normal Neuro General: patient oriented x3 Cranial nerves: Yes Normal hearing present Cognition (Neuro): normal cognition Gait exam (Neuro): Normal gait present Motor exam (neuro): 5/5 motor strength present throughout Sensory Exam: No Sensory deficit (Neuro) Extrem General: Yes normal to inspection, Yes full ROM, Yes capillary refill normal and Yes normal gait Assessment & Plan Assessment & Plan (1) Varicose veins of right lower extremity with inflammation: Code(s): I83.11 - Varicose veins of right lower extremity with inflammation Category: Medical Plan: Tiffanie is presenting with a 2 week follow-up for dressing changes and wound care. She has been changing her bandage at home twice a week. We switched her from Adaptic to a dry dressing last visit. Patient notes that the wound is weeping again, a yellowish colored discharge. She is also having concerns for a Behcets flare, which she states happened soon after her last visit here. She has reached out to her PCP as well as rheumatology has not heard back yet. Due to increased risk for infection and open wounds due to the flare, we sent in a prescription for doxycycline b.i.d. for 10 days. We discussed to add a probiotic twice a day to help with any digestive issues. If anything worsens she should reach back out to us or contact her PCP. We will change her dressings back to Adaptic. We will see her back in 2 weeks for a wound check. There are any concerns or questions please reach out to our office. We discussed that if she gets fevers, chills, body aches, and worsening infections she must go to the ER. Coding Level of Care Code Established Pt Est Pt Level 4 (61535) Established Pt Complex EM visit Add On G2211 Patient Type Established Diagnoses Varicose veins of right lower extremity with inflammation I83.11 Comment wound care, infection
== END 2024-03-30 16:20 | disposition home or self-care (01) ==
PROVIDERS: PCP Physician Assistant; Visit Provider Surgery Vascular Surgery
DX: I83.11 Varicose veins of right lower extremity with inflammation (principal)
CPT/HCPCS: 99214; G2211

== ENCOUNTER → 2024-03-30 14:59 | Outpatient (BNVA) | payer OTHER, SELFPAY | PROVIDERS: PCP Physician Assistant; Visit Provider Surgery Vascular Surgery ==

== ENCOUNTER 2024-04-06 14:06 | Outpatient (AMB) | payer OTHER, SELFPAY ==
--- NOTE | 2024-04-06 14:13 | A.OFFVIS_ITS ---
Vital Signs 04/06/24 14:13 Height 5 ft 6 in Intake Visit Reasons: follow up dressing change Intake Note: follow up dressing change, swelling is decreased and wound is doing much better this week Accompanied by: Self / Same As Patient Allergies bees Allergy (Intermediate, Uncoded 04/06/24 14:24) Difficulty Breathing HPI HPI follow up dressing change: Details: Tiffanie is presenting today for a wound check. She has been taking her doxycycline twice a day for the last week and states her presents flare is doing much better. She has also been using the Adaptic daily for the wound on her lower leg and states it has been going very well and the site seems to be healing. The wound is no longer weeping and there is some scabbing that is occurring. She states she is feeling much better overall. 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 Cognitive needs: No Hearing needs: No Vision needs: Yes Review of Systems Const Reports as per HPI and Denies weakness ENT Reports Normal hearing present and Denies dizziness Card Reports as per HPI, Denies chest pain, Denies chest pain at rest, Denies chest pain with activity, Denies dyspnea and Denies dyspnea on exertion Resp Reports as per HPI, Denies cough, Denies dyspnea and Denies dyspnea on exertion GI Reports as per HPI, Denies abdominal pain, Denies nausea and Denies vomiting Musc Denies numbness Skin/Breast Reports as per HPI, Denies erythema and Reports wounds Neuro Reports Normal hearing present, Denies dizziness, Denies numbness, Denies Sensory deficit (Neuro) and Denies weakness Psych Reports no additional complaints Endo Reports no additional complaints Physical Exam Const General: healthy appearing and no acute distress Orientation/consciousness: patient oriented x3 HEENT Head: Yes normal to inspection Ears: hearing grossly normal bilaterally Mouth: Normal oral and palatal mucosa present Resp Effort & Inspection: normal respiratory effort and able to speak in complete sentences Auscultation: clear to auscultation bilaterally Cardio Jugular venous distension: no JVD Rate: regular rate Rhythm: regular rhythm Heart sounds: S1 normal heart sound present and S2 normal heart sound present Bruits: no abdominal aortic bruits, no carotid bruits, no femoral bruits and no renal bruits Peripheral pulses: Peripheral pulses 2+ throughout GI Inspection: Yes normal to inspection Palpation (GI): No Abdominal aortic bruit present Skin Other: Lower extremity wound: Starting to scab over, no weeping noted today. No discharge or bleeding noted. No surrounding erythema. Behcet's flare has decreased significantly and the sites are scabbing over. General skin exam: no rashes or lesions noted Hair: normal Neuro General: patient oriented x3 Cranial nerves: Yes Normal hearing present Cognition (Neuro): normal cognition Gait exam (Neuro): Normal gait present Motor exam (neuro): 5/5 motor strength present throughout Sensory Exam: No Sensory deficit (Neuro) Extrem General: Yes normal to inspection, Yes full ROM, Yes capillary refill normal and Yes normal gait Assessment & Plan Assessment & Plan (1) Varicose veins of right lower extremity with inflammation: Code(s): I83.11 - Varicose veins of right lower extremity with inflammation Category: Medical Plan: Tiffanie is presenting today for a wound care check follow-up. She states she has been doing much better being on the antibiotic and with the change in dressings to Adaptic. She states the wound is healing much better and her flare has gone down significantly. She continues with the antibiotic for the next 3 days. Due to the nature that the wound is healing so well with the Adaptic, we will continue with the Adaptic for the next 2 weeks until her next follow-up. We encouraged her to finish the antibiotic. 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 We discussed the importance of compression stockings on both legs. We are able to provide her with the donated compression stockings (she states her compression stockings are old). We discussed the importance of elevating her legs when she is home or any point during the day where she has a break. We discussed that if there is any concerns or questions she can call back to us at any point. We will follow up with her in 2 weeks. Coding Level of Care Code Established Pt Est Pt Level 3 (61611) Patient Type Established Diagnoses Varicose veins of right lower extremity with inflammation I83.11
== END 2024-04-06 14:56 | disposition home or self-care (01) ==
PROVIDERS: PCP Physician Assistant; Visit Provider Physician Assistant Surgical
DX: I83.11 Varicose veins of right lower extremity with inflammation (principal)
CPT/HCPCS: 99213

== ENCOUNTER → 2024-04-06 14:06 | Outpatient (BNVA) | payer OTHER, SELFPAY | PROVIDERS: PCP Physician Assistant; Visit Provider Physician Assistant Surgical ==

== ENCOUNTER 2025-04-26 08:54 | Outpatient (AMB) | payer OTHER, SELFPAY ==
[2025-04-26 09:02] VITALS: BP 124/76; PULSE 96; TEMP 36.1; O2SAT 99; BMI 33.4
--- NOTE | 2025-04-26 09:02 | MHC.PC.OV ---
Vital Signs 04/26/25 09:02 Height 5 ft 6 in Weight 207 lb 2 oz BMI 33.4 BP 124/76 Blood Pressure Location Lt brachial Position Sitting Pulse 96 Pulse Source Pulse Oximeter Temp 97.0 F Temp Source Temporal Artery Scan Pulse Oximetry (%) 99 Oxygen Delivery Method Room Air Intake Visit Reasons: medication f/u Allergies bees Allergy (Intermediate, Uncoded 04/26/25 09:18) Difficulty Breathing Medication List - Last Reconciled 04/26/25 by Kit Reyes PA-C apremilast (Otezla) 30 mg PO BID clonidine HCl 0.1 mg PO TID colchicine 0.6 mg PO BID cyclobenzaprine 10 mg PO TID esomeprazole magnesium 20 mg PO DAILY ferrous sulfate (iron) 325 mg PO DAILY 30 days furosemide 80 mg (2 x 40 mg) PO DAILY 30 days metformin ER 500 mg PO BEDTIME methadone 10 mg PO DAILY ondansetron HCl 4 mg PO DAILY quetiapine 100 mg PO BEDTIME sertraline 50 mg PO QAM topiramate 200 mg PO DAILY valacyclovir 1,000 mg PO DAILY vitamin B complex 1 tab PO DAILY Tobacco use date assessed: 04/26/25 Dental Screening Dental Screen Date: 04/26/25 Did you have a dental visit in the last 12 months?: Yes Did you have a dental problem in the last 6 months where you did not have access to dental care?: No Was dental information given to patient?: Patient has dentist HPI medication f/u HPI Details The patient is a 34-year-old female presenting for a follow-up visit with primary concerns of difficulty losing weight. Her past medical history is significant for Behcet's disease, lymphedema, and a history of opiate use disorder, MDD. Behcet's disease: The patient has a diagnosis of Beh?et's disease, which has manifested as painful oral ulcers, significant hair loss requiring hair extensions, and scarring skin lesions. She takes Valtrex daily for the ulcers and wears compression socks. She was diagnosed at [facility] and requires a new referral to re-establish care with rheumatology. . Major depressive disorder: She was previously seeing a psychiatrist and continued on SSRI therapy, antipsychotic and Topamax. PLAN: Due to her weight will try to reduce her dose of Seroquel to see if she loses a bit of weight. Class 1 obesity: The patient reports significant difficulty losing weight and easy weight gain despite being a vegetarian since high school and consuming a diet primarily of salads, fruits, and vegetables. She notes that her lymphedema and swelling worsen with weight gain. Previous lab work for thyroid function and blood sugar have been normal. PLAN; patient interested in trying a appetite suppressant to help lose weight. We did discuss the habit-forming nature of this medication patient agrees and understands that this will only be a 2 month course of treatment. Opiate Use disorder: The patient has a history of opiate use disorder, which began at age 12 after being prescribed OxyContin for shoulder surgery. She is currently on a split dose of methadone and reports being two months clean from other substances. She reports a recent contentious urine drug screen at her program that was positive for fentanyl with increasing levels, which she denies using. . 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 1. Little interest or pleasure in doing things: not at all 2. Feeling down, depressed, or hopeless: not at all 3. Trouble falling or staying asleep, or sleeping too much: not at all 4. Feeling tired or having little energy: not at all 5. Poor appetite or overeating: not at all 6. Feeling bad about yourself - or that you are a failure or have let yourself or your family down: not at all 7. Trouble concentrating on things, such as reading the newspaper or watching television: not at all 8. Moving or speaking so slowly that other people could have noticed. Or the opposite - being so fidgety or restless that you have been moving around a lot more than usual: not at all 9. Thoughts that you would be better off or of hurting yourself in some way: not at all Total score: 0 Depression Screening Interpretation: Negative Depression Screening Done: Yes 48112 - PHQ-9 Billing: Yes Source: Developed by Drs. Josiah Brush, Carrie Hernandez, Massimo Espino and colleagues, with an educational min from [employer]. Thrive Questionnaire Date Thrive assessed: 04/26/25 I am a: Patient What is your living situation today?: I choose not to answer this question Within the past 12 months, did the food you bought not last and you didn't have the money to get more?: I choose not to answer this question Within the past 12 months, did you worry whether your food would run out before you got money to buy more?: I choose not to answer this question Do you have trouble paying for medicines?: No Do you have trouble getting transportation to medical appointments?: Yes Do you have trouble paying your heating and electricity bill?: No Do you have trouble taking care of your child, family member or friend?: No Do you have trouble with day-to-day activities such as bathing, preparing meals, shopping, managing finances, etc.?: No Are you currently unemployed and looking for a job?: No Are you interested in more education?: No Please select the resources that you would like help with: None Currently or been in a relationship where the following occur: I choose not to answer THRIVE Score: 1 AUDIT C Alcohol Use Questionnaire (AUDIT-C) 1. How often do you have a drink containing alcohol?: Never 3. How often do you have six or more drinks on one occasion?: Never Total Score: 0 ELOY-7 AMB Questionnaire ELOY-7 Date ELOY - 7 assessed: 04/26/25 Feeling nervous, anxious, or on edge: 0 = Not at all Not being able to stop or control worryin = Not at all Worrying too much about different things: 0 = Not at all Trouble relaxin = Not at all Being so restless that it is hard to sit still: 0 = Not at all Becoming easily annoyed or irritable: 0 = Not at all Feeling afraid as if something awful might happen: 0 = Not at all Total ELOY-7 score (0-4 normal; 5-9 mild; 10-14 moderate; 15-21 severe): 0 Source: Developed by Drs. Josiah Brush, Carrie Hernandez, Massimo Espino and colleagues, with an educational min from [employer]. ELOY-7 Assessment Billing ELOY-7 Assessment Tool: ELOY-7 Assessment 42069 Review of Systems Const Denies headache(s) Eyes Denies loss of vision ENT Denies vertigo, Denies dizziness, Denies headache(s) and Denies sore throat Card Denies chest pain, Denies leg edema and Denies lightheadedness Resp Denies cough, Denies hemoptysis and Denies wheezing GI Denies abdominal pain, Denies melena, Denies constipation, Denies diarrhea and Denies vomiting Denies urinary frequency, Denies dysuria and Denies urinary urgency Musc Denies arthralgias, Denies joint swelling, Denies numbness and Denies tingling Neuro Denies Abnormal speech present, Denies behavioral changes, Denies vertigo, Denies dizziness, Denies headache(s), Denies loss of vision, Denies memory loss, Denies numbness and Denies tingling Psych Denies anxiety, Denies behavioral changes, Denies depression, Denies memory loss and Denies panic attacks Francisco/Lymph Denies easy bleeding and Denies easy bruising Aller/Immun Denies wheezing Physical exam (Primary Care) Vital Signs: Last Vital Signs Temp 97.0 F 04/26/25 09:02 Pulse 96 04/26/25 09:02 BP 124/76 04/26/25 09:02 Pulse Ox 99 04/26/25 09:02 Oxygen Delivery Method Room Air 04/26/25 09:02 BMI result Body Mass Index 33.4 BMI Assessment/Plan discussion: High BMI High, discussed plan: lifestyle, weight reduction, dietary and physical activity Tobacco/Smoking Status: Tobacco use Status Tobacco use date assessed 04/26/25 04/26/25 09:11 Patient Tobacco Use Status Never used Tobacco 04/26/25 09:11 e-Cigarette/Vaping Use Never Used 04/26/25 09:11 PHQ-9: PHQ-9 Score PHQ-9: Total score 0 04/26/25 09:22 Depression Screening Interpretation: Negative Thrive Assessment: Date of Thrive Assessment Date Thrive assessed 04/26/25 04/26/25 09:11 Currently or been in a relationship where the following occur: I choose not to answer Const Other: OBESE General: healthy appearing, no acute distress, alert and awake Nutritional Appearance: well nourished Orientation/consciousness: oriented to person, oriented to place and oriented to time HENMT Ears: TM's normal bilaterally General nose exam: Normal nasal mucous membranes and turbinates present Eyes Conjunctivae: conjunctivae normal Sclerae: sclerae normal Pupils: Equal, round and reactive pupils present Neck Neck: Yes no lymphadenopathy and Yes no JVD Thyroid: Thyroid normal Carotids: no bruits Resp Effort & Inspection: normal respiratory effort and not tachypneic Auscultation: no crackles, no rales, no rhonchi and no wheezes Cardio Rate: regular rate Rhythm: regular rhythm Heart sounds: no murmurs and normal S1 and S2 GI Palpation (GI): Soft to palpation, nontender, no hepatomegaly and no splenomegaly Auscultation: normal bowel sounds Skin General skin exam: no rashes or lesions noted and dry skin Neuro General: oriented to person, oriented to place and oriented to time Cranial nerves: Yes Equal, round and reactive pupils present Speech: No Abnormal speech present Gait exam (Neuro): Normal gait present Motor exam (neuro): no tremor noted Extrem Right upper extremity: full ROM Left upper extremity: full ROM Right lower extremity: full ROM; no edema Left lower extremity: full ROM; no edema Psych Mental Status: mental status grossly normal Speech and movement: Normal speech and movement present Affect: normal affect Attitude: cooperative Thought process: Normal thought process present Coding Level of Care Code Est Pt Level 4 (77475) Diagnoses Behcets syndrome M35.2 Class 1 obesity E66.9 Impaired glucose metabolism R73.09 MDD (major depressive disorder), recurrent episode, moderate F33.1 Uncomplicated opioid dependence F11.20 Substance use status: uncomplicated Additional Codes ELOY-7 Assessment Billing - ELOY-7 Assessment Tool: ELOY-7 Assessment 38016 ([id number]) PHQ-9 - 99343 - PHQ-9 Billing: Yes ([id number]) Assessment & Plan Assessment & Plan (1) Behcets syndrome: Code(s): M35.2 - Behcet's disease Category: Medical Plan: Patient diagnosed last year Behcets syndrome by a fish machine feeder in [facility]. She was started on Otezla and colchicine which has drastically reduced her skin manifestations in inflammation. A referral will be placed for the patient to re-establish care with rheumatology at [facility] for ongoing management of her Beh?et's disease. Her lower extremity skin ulcers have been surgically repaired and are completely closed. (2) Class 1 obesity: Code(s): E66.9 - Obesity, unspecified Category: Medical Plan: Patient does understand her BMI is over 30 Sandi has found it very difficult to lose weight and keep weight off. She attributes this to her autoimmune disease. She has not been deemed a candidate for GLP 1 therapy. She is interested in trying a short term regime of appetite suppressant to help her kick start weight loss. (3) Impaired glucose metabolism: Code(s): R73.09 - Other abnormal glucose Category: Medical Plan: Patient continues on metformin for her impaired glucose metabolism. Will recheck fasting blood sugar and A1c (4) MDD (major depressive disorder), recurrent episode, moderate: Code(s): F33.1 - Major depressive disorder, recurrent, moderate Category: Medical Plan: Patient has a history of major depressive disorder. She continues on SSRI therapy. Will decrease her Seroquel dose to 50 mg in hopes she can lose weight. (5) Opiate dependence: Code(s): F11.20 - Opioid dependence, uncomplicated Category: Medical Qualifiers: Substance use status: uncomplicated Qualified Code(s): F11.20 - Opioid dependence, uncomplicated Plan: Continues on methadone maintenance. She is in sober living here in [place]. She has been clean and sober from Street opiates over the last 2 months. Orders: Orders Complete Blood Count no Diff Today R73.09 - Other abnormal glucose Hemoglobin A1c Today R73.09 - Other abnormal glucose Comprehensive [place]. Panel Fast Today R73.09 - Other abnormal glucose Referrals Rheumatology Referral M35.2 - Behcet's disease Medications: New clonidine HCl 0.1 mg PO TID 270 tabs 1RF 90 days M35.2 - Behcet's disease phentermine must administer 30 minutes before or 1-2 hours after breakfast 37.5 mg PO DAILY 28 tabs 0RF 28 days E66.9 - Obesity, unspecified quetiapine (Seroquel) 50 mg PO DAILY 90 tabs 1RF 90 days F33.1 - Major depressive disorder, recurrent, moderate cyclobenzaprine 10 mg PO TID 270 tabs 1RF 90 days M35.2 - Behcet's disease Changed From colchicine 0.6 mg PO BID M35.2 - Behcet's disease To colchicine 0.6 mg PO BID 180 tabs 1RF 90 days M35.2 - Behcet's disease From apremilast (Otezla) 30 mg PO BID M35.2 - Behcet's disease To apremilast (Otezla) 30 mg PO BID 180 tabs 1RF 90 days M35.2 - Behcet's disease From sertraline 50 mg PO QAM depressive disorder F33.1 - Major depressive disorder, recurrent, moderate To sertraline 50 mg PO QAM 90 tabs 1RF depressive disorder 90 days F33.1 - Major depressive disorder, recurrent, moderate From metformin ER 500 mg PO BEDTIME R73.09 - Other abnormal glucose To metformin ER 500 mg PO BEDTIME 90 tabs 1RF 90 days R73.09 - Other abnormal glucose Refilled furosemide 80 mg (2 x 40 mg) PO DAILY 60 tabs 1RF 30 days R60.0 - Localized edema
--- OUTSIDE RECORDS SUMMARY | 2025-04-26 09:36 | XMS_ITS | Encounter Summary ---
Author Organization [facility] Address [address] [place] [id number] Phone Care Team Providers Care Vendette Name Role Phone Digna Wood DO Primary Care Provider [phone] Encounter Details Date Type Department Care Team (Late st Contact Info) Description 06/23/2012 Documentation [facility] Family Medicine [address] [place] [address] Family Medicine, Physician [address] [place], [place] [id number] Social History Tobacco Use Types Packs/Day Years Used Date Smoking Tobacco: Never Assessed Comments Unknown Sex and Gender Information Value Date Recorded Sex Assigned at Not on file Legal Sex Female 4:43 PM EDT Gender Identity Not on file Sexual Orientation Not on file documented as of this encounter Plan of Treatment Not on file documented as of this encounter Visit Diagnoses Not on filedocumented in this encounter Care Teams Vendette Relationship Specialty Start Date End Date Digna Wood DO [address] [place] [address] [place] [address] PCP - General 01/22/17 08/26/22 documented as of this encounter
--- OUTSIDE RECORDS SUMMARY | 2025-04-26 09:36 | XMS_ITS | Encounter Summary ---
Author Organization [facility] Address [address] [place] [id number] Phone Care Team Providers Care Top Cager Name Role Phone Digna Wood DO Primary Care Provider [phone] Encounter Details Date Type Department Care Team (Late st Contact Info) Description 11/01/2009 Documentation [facility] Family Medicine [address] [place] [address] Family Medicine, Physician [address] [place], [place] [phone] Social History Tobacco Use Types Packs/Day Years [...] on filedocumented in this encounter Care Teams Top Cager Relationship Specialty Start Date End Date Digna Wood DO [address] [place] [address] [place] [id number] PCP - General 01/22/17 08/26/22 documented as of this encounter
--- OUTSIDE RECORDS SUMMARY | 2025-04-26 09:36 | XMS_ITS | Clinical Summary ---
Author Organization [facility] Address [address] [place] [id number] Phone Care Team Providers Care Core Driller Helper Name Role Phone Unavailable Primary Care Provider Unavailabl e Immunizations Immunization Administration Dates Next Due DTP 11/15/1995, 2,05/24/1991,03/22,01/18/1991 HPV, Quadrivalent 09/08/2007,04/15/2007,01/28/20 07 Hep B, ped/adol 02/08/1996,11/15/1995,04/15/1995 Hib (PRP-T) 02/16/1992, 1,03/22/1991,01/18 MMR 11/19/1994,02/16/1992 Meningococcal Conj (Menactra) MCV4P 01/21/2006 OPV 11/15/1995, 2,03/22/1991,01/18 Td (adult) (MBL), 2 Lf tetan us toxoid, PF, adsorbed 12/05/2001 Tdap 04/15/2007 Varicella 02/01/2008,12/09/1995 Family History Relation Name Status Comments Brother 1 Brother: Asthma , ADD/ADHD Brother 2 Alive Brother: Asthma , ADD/ADHD Father Father: Depress ion, Alcoholism Mother Alive Mother: Alive a nd well Social History Tobacco Use Types Packs/Day Years Used Date Smoking Tobacco: Never Assessed Comments Unknown Sex and Gender Information Value Date Recorded Sex Assigned at Not on file Legal Sex Female 4:43 PM EDT Gender Identity Not on file Sexual Orientation Not on file Last Filed Vital Signs Vital Sign Reading Time Taken Comments Blood Pressure - - Pulse - - Temperature 36.8 C (98.2 F) 12/13/2011 12:00 AM EDT Respiratory Rate - - Oxygen Saturation - - Inhaled Oxygen Concentration - - Weight 88.5 kg (195 lb) 12/13/2011 12:00 AM EDT Height - - Body Mass Index - - Plan of Treatment Health Maintenance Due Date Last Done Comments DTaP,Tdap,and Td Vaccines (7 - Td or Tdap) 04/15/2017 04/15/2007, 12/05/2001, 11/15/1995, Additional history exists Influenza Vaccines (#1) 2025 COVID-19 Vaccine () 02/12/2025 HIB Vaccines Completed 02/16/1992, 05/14, 03/22/1991, Additional history exists MMR Vaccines Completed 11/19/1994, 02/16/1992 IPV Vaccines Completed 11/15/1995, 05/14, 03/22/1991, Additional history exists Hepatitis B Vaccines Completed 02/08/1996, 11/15/1995, 04/15/1995 Meningococcal Vaccine Aged Out 01/21/2006 No gordo randi eligible based on patient's age to complete this topic HPV Vaccines Completed 09/08/2007, 07/2006, 01/27/2007 Varicella Vaccines Completed 02/01/2008, 12/09/1995 Hepatitis A Vaccines Aged Out No long er eligible based on patient's age to complete this topic Men B Vaccine Aged Out No longer elig ible based on patient's age to complete this topic Pneumococcal Vaccine Aged Out No long er eligible based on patient's age to complete this topic
--- OUTSIDE RECORDS SUMMARY | 2025-04-26 09:36 | XMS_ITS | Patient Health Record ---
Author Organization [facility] Address [address] [place] [address] Care Team Providers Care Ammonia Distiller Name Role Phone NO, PCP Primary Care Provider [phone] Ruby Oreilly Unavailable [phone] Reason For Referral No Information Social History Sex Assigned At : Social History Observation Description Sex Assigned At Female Encounters Encounter Location Date Provider Diagnosis [facility] [address], [place] [id number] 02/05/2025 Ruby Oreilly Plan Of Treatment No Information Insurance Providers Payer Name Payer Address Payer Phone Subscriber Number Group Number Insured Name Patient Relationship to Insured Coverage Start Date Coverage End Date Insurance Pending [id number] [place] [phone] Tiffanie Valencia Self - patient is the insured
--- OUTSIDE RECORDS SUMMARY | 2025-04-26 09:36 | XMS_ITS | Encounter Summary ---
Author Organization [facility] Address [address] [place] [id number] Phone Care Team Providers Care Supervisor Malted Milk Name Role Phone Digna Wood DO Primary Care Provider [phone] Encounter Details Date Type Department Care Team (Late st Contact Info) Description 04/15/2017 Conversion Encounter [facility] [place] [address] [place] [address] Social History Tobacco Use Types Packs/Day Years [...] on filedocumented in this encounter Care Teams Supervisor Malted Milk Relationship Specialty Start Date End Date Digna Wood DO [address] [place] [address] PCP - General 01/22/17 08/26/22 documented as of this encounter
--- OUTSIDE RECORDS SUMMARY | 2025-04-26 09:36 | XMS_ITS | Encounter Summary ---
Author Organization [facility] Address [address] [place] [address] Phone Care Team Providers Care Stamp Redemption Clerk Name Role Phone Digna Wood DO Primary Care Provider [phone] Encounter Details Date Type Department Care Team (Late st Contact Info) Description 11/01/2009 Documentation [facility] [address] [place] [address] Family Medicine, Physician [address] [place], [place] [id number] Social History Tobacco Use Types Packs/Day Years [...] on filedocumented in this encounter Care Teams Stamp Redemption Clerk Relationship Specialty Start Date End Date Digna Wood DO [address] [place] [address] [place] [address] PCP - General 01/22/17 08/26/22 documented as of this encounter
== END 2025-04-26 09:53 | disposition home or self-care (01) ==
LOC: HO.HMCH 08:55
PROVIDERS: PCP Physician Assistant; Visit Provider Physician Assistant
DX: M35.2 Behcet's disease (principal); E66.9 Obesity, unspecified; R73.09 Other abnormal glucose; F33.1 Major depressive disorder, recurrent, moderate; F11.20 Opioid dependence, uncomplicated

== ENCOUNTER → 2025-04-26 08:54 | Outpatient (BNVA) | payer OTHER, SELFPAY | PROVIDERS: PCP Physician Assistant; Visit Provider Physician Assistant | DX: M35.2 Behcet's disease (principal); E66.811 Obesity, class 1; F11.20 Opioid dependence, uncomplicated; R73.09 Other abnormal glucose; F33.1 Major depressive disorder, recurrent, moderate; R60.0 Localized edema; Z68.33 Body mass index [BMI] 33.0-33.9, adult | CPT/HCPCS: 96127; 99212 ==